=== PATIENT | female | born 1935 | race Caucasian/White ===

== ENCOUNTER 2019-08-26 16:19 | Inpatient (IN) | payer MEDICARE, BC ==
[~2019-08-26] VITALS: Ht 160 cm; Wt 65.1 kg
--- NOTE | 2019-08-26 16:30 | NUR ---
Admission Note with Justification for Admission to [facility] Patient admitted to [facility] for protective oversight for emergency stabilization of acute psychiatric crisis. Pt admitted from: Home via [facility] Mode of arrival: EMS Accompanied By: EMS Precipitating behaviors that initiated intake and admission: Patient was reportedly anxious, insomnia, verbally abusive to staff, distressed, restless, with self care deficits and reporting to her daughter that she wanted to . Description of failure of out patient attempts at stabilization in previous setting list behavior and medication trials: medication changes at [facility] and antibiotics for UTI Behaviors and assessment findings upon admission: Patient was mildly anxious, forgetful, compliant, and cooperative. When asked orientation questions, patient stated that she was at '[facility] in [place], [place]' and that the date was 'the August 2020'. Patient has bruising throughout her body, and a skin tear to her right upper chest. Skin tear photographed using KISS method. Patient had a Jung that was discontinued prior to discharge from [facility], states she has not urinated since then. She also states she has not had a BM in three days. Patient asked twice why she was here, I explained both times that she was having memory problems and we were adjusting her medications; the questions were about ten minutes apart, each time she seemed to accept the answer. Plan: Admit for protective oversight for adjustment and stabilization of medications, behaviors and mood. Intense treatment regimen including groups, medication adjustments, therapy, consistent regimen for ADL's, self care, and sleep hygiene. Daily monitoring by Inpatient staff, Psychiatry, and Medical Physician.
[2019-08-26] MEDS ORDERED: ZOLP5TAB PO (16:57)
[2019-08-26] MEDS ORDERED: METO50TA6 PO (16:57)
[2019-08-26] MEDS ORDERED: LACT1CAP19 PO (16:57)
[2019-08-26] MEDS ORDERED: LEVO88TA2 PO (16:57)
[2019-08-26] MEDS ORDERED: PANT40TA3 PO (16:57)
[2019-08-26] MEDS ORDERED: BUSP10TA PO (16:57)
[2019-08-26] MEDS ORDERED: ASPI325T11 PO (16:57)
[2019-08-26] MEDS ORDERED: SERT50TA PO (16:57)
[2019-08-26] MEDS ORDERED: SENN1TAB62 PO (16:57)
[2019-08-26] MEDS ORDERED: HYDR-2769 PO (16:57)
[2019-08-26] MEDS ORDERED: DICL100G18 TP (16:57)
[2019-08-26] MEDS ORDERED: CETI10TA74 PO (16:57)
[2019-08-26] MEDS ORDERED: MONT10TA80 PO (16:57)
[2019-08-26] MEDS ORDERED: MULT-245 PO (16:57)
[2019-08-26 17:31] VITALS: BP 175/84
[2019-08-26] MEDS ORDERED: MAG HYDROX/AL HYDROX/SIMETH 30 ML ORAL.SUSP PO PRN (17:45)
[2019-08-26] MEDS ORDERED: MAGNESIUM HYDROXIDE 2,400 MG/30 ML ORAL.SUSP. PO PRN (17:45)
[2019-08-26] MEDS ORDERED: METHYL SALICYLATE/MENTHOL TOPICAL OINTMENT 57GM TUBE. TP PRN (17:45)
[2019-08-26] MEDS: DICLOFENAC SODIUM 1% TOPICAL GEL 100GM TUBE. TP SCH (21:00)
[2019-08-26] MEDS: METOPROLOL TART IMMED RELEASE 50 MG TABLET PO SCH (22:13)
[2019-08-26] MEDS: LACTOBACILLUS RHAMNOSUS GG 1 CAPSULE. PO SCH (22:14)
[2019-08-26] MEDS: busPIRone 10 MG TABLET. PO SCH (22:14)
[2019-08-26] MEDS: MONTELUKAST 10 MG TABLET. PO SCH (22:14)
--- NOTE | 2019-08-26 22:37 | PDOC ---
Exam Note: Thomas Note: Please also refer to the separate dictated note~for this date of service dictated separately.~Patient seen individually. Discussed the patient with Nursing staff reviewed the chart.~Reviewed interim history and current functioning. Reviewed vital signs,~Labs/ Radiology~and current medications noted below. Continue current treatment with the changes noted in the dictated addendum note Assessment: Vital Signs/I&O: Vital Signs Date Time Temp Pulse Resp B/P (MAP) Pulse Ox O2 Delivery O2 Flow Rate FiO2 08/26/19 22:13 64 175/84 08/26/19 17:31 97.4 18 97 Current Medications: Meds: Current Medications Medications (Trade) Dose Ordered Sig/N[place] Route PRN Reason Start Time Stop Time Status Last Admin Dose Admin Lactobacillus Rhamnosus (Culturelle) 1 cap BID PO 08/26/19 21:00 08/26/19 22:14 Metoprolol Tartrate (Lopressor) 50 mg BID PO 08/26/19 21:00 08/26/19 22:13 Montelukast Sodium (Singulair) 10 mg HS PO 08/26/19 21:00 08/26/19 22:14 Buspirone HCl (Buspar) 10 mg BID PO 08/26/19 21:00 08/26/19 22:14 I have reviewed the current psychotropics carefully including drug interactions. Risk benefit ratio favors no change other than as noted in my dictated progress note. KERWIN RICCI MD Aug 26, 2019 22:37
[2019-08-27] MEDS: ACETAMINOPHEN 325 MG TABLET PO PRN (05:45)
[2019-08-27] MEDS: LEVOTHYROXINE 88 MCG TABLET PO SCH (05:45)
[2019-08-27 05:54] VITALS: BP 173/84
--- NOTE | 2019-08-27 06:53 | NUR ---
Nursing Note The patient was calm and cooperative this shift. The patient took her medication whole and was pleasant during interactions. The patient requested PRN Tylenol with her Synthroid this morning.
[2019-08-27] MEDS: DICLOFENAC SODIUM 1% TOPICAL GEL 100GM TUBE. TP SCH ×3 (09:00→20:21)
[2019-08-27] MEDS: ASPIRIN ENTERIC COATED 325 MG TABLET.DR. PO SCH (09:05)
[2019-08-27] MEDS: PANTOPRAZOLE 40 MG TABLET. PO SCH (09:06)
[2019-08-27] MEDS: METOPROLOL TART IMMED RELEASE 50 MG TABLET PO SCH ×2 (09:06→20:22)
[2019-08-27] MEDS: SERTRALINE 50 MG TABLET. PO SCH (09:06)
[2019-08-27] MEDS: busPIRone 10 MG TABLET. PO SCH ×2 (09:06→20:21)
[2019-08-27] MEDS: CETIRIZINE HCL 10 MG TABLET PO SCH (09:06)
[2019-08-27] MEDS: SENNOSIDES/DOCUSATE 8.6/50MG TABLET. PO SCH (09:06)
[2019-08-27] MEDS: LACTOBACILLUS RHAMNOSUS GG 1 CAPSULE. PO SCH ×2 (09:06→20:21)
[2019-08-27] MEDS: MULTIVITAMIN with MINERAL TABLET. PO SCH (09:06)
[2019-08-27 10:04] LABS: BASO % 0 % (0-3); EOS # 0.2 x10^3/uL (0.0-0.7); EOS % 2 % (0-3); HEMATOCRIT 34.7 % (36.0-47.0); HEMOGLOBIN 11.7 g/dL (12.0-15.5); LYMPH # 1.2 x10^3/uL (1.0-4.8); LYMPH % 11 % (24-48); MEAN CORPUSCULAR HEMOGLOBIN 26 pg (25-35); MEAN CORPUSCULAR HGB CONC 34 g/dL (31-37); MEAN CORPUSCULAR VOLUME 77 fL (79-100); MONO # 0.4 x10^3/uL (0.0-1.1); MONO % 4 % (0-9); NEUT # 8.5 x10^3uL (1.8-7.7); NEUT % 82 % (31-73); PLATELET COUNT 547 x10^3/uL (140-400); RED BLOOD COUNT 4.51 x10^6/uL (3.50-5.40); RED CELL DISTRIBUTION WIDTH 15.4 % (11.5-14.5); WHITE BLOOD COUNT 10.3 x10^3/uL (4.0-11.0)
[2019-08-27 10:19] LABS: ALBUMIN 3.2 g/dL (3.4-5.0); ALBUMIN/GLOBULIN RATIO 0.8 (1.0-1.7); CALCIUM 8.6 mg/dL (8.5-10.1); GFR 52.7; MAGNESIUM 1.8 mg/dL (1.8-2.4); POTASSIUM 3.5 mmol/L (3.5-5.1); TOTAL BILIRUBIN 0.5 mg/dL (0.2-1.0)
--- NOTE | 2019-08-27 12:13 | NUR ---
pt is calm, cooperative, compliant. No agitation, no aggression, no hallucinations, no delusions. She is compliant with her assessment and medications.
[2019-08-27 15:44] VITALS: BP 172/80
--- NOTE | 2019-08-27 18:54 | CONS ---
DATE OF CONSULTATION: REASON FOR CONSULTATION: Medical management. HISTORY OF PRESENT ILLNESS: The patient is an 83-year-old female patient who was admitted to [facility] on account of being anxious, confused, verbally abusive to staff, restless. Her mood is dysphoric, stressed, irritable. She has severe self-care deficits. She has insomnia. She reports that her daughter desired to when frustrated and all this in a background of major neurocognitive disorder, vascular Alzheimer with delusion, depression, behavioral disorder, anxiety disorder, unspecified; impulse control disorder. She apparently was recently admitted to [facility], specifically on 08/20/2019 with a mechanical fall. At that time, she was found to have urinary tract infection, hyponatremia and a knee injury and while there, she became extremely delirious and was seen actually by the psychiatrist and was treated for urinary tract infection. Her sodium was low also at 123 and she has mildly elevated troponin, for which she was seen also by invisible braces orthodontist and was transferred to this unit for inpatient psychiatric stabilization. PAST MEDICAL HISTORY: Significant for osteoarthritis, hypertension, hyperlipidemia, hypothyroidism, gastroesophageal reflux disease. PAST SURGICAL HISTORY: Significant for cholecystectomy and open reduction and internal fixation with nailing. ALLERGIES: She is allergic to PENICILLIN. FAMILY HISTORY: Unremarkable. SOCIAL HISTORY: She lives at home. She apparently continues to smoke, but does not drink alcohol or use recreational drugs. She uses a cane at home. MEDICATIONS: She is on following medications: She is on cetirizine 10 mg once a day, metoprolol tartrate 50 mg twice a day, aspirin 325 mg once a day, diclofenac sodium (Voltaren gel) 1 gram applied topically twice a day, hydrocodone/APAP 10/325 one tablet 3 times a day as needed, sertraline 50 mg daily, buspirone 10 mg twice a day, Ambien 5 mg at bedtime, Singulair 10 mg at bedtime, senna-S 2 tablets daily, Protonix 40 mg once a day, Lactobacillus rhamnosus 1 capsule twice a day. She is on levothyroxine sodium 88 mcg once a day and multivitamin 1 tablet once a day. PHYSICAL EXAMINATION: GENERAL: When I examined her, she was sitting comfortably in her wheelchair, in no apparent respiratory distress. She was very agitated, restless and uncooperative, complained mostly of pain in her both knee joints. When I examined her, she was pale, no jaundice, cyanosis or thyromegaly. No jugular venous distention or limb edema. VITAL SIGNS: Her heart rate was 64, blood pressure 172/80, temperature was 98.1, respiratory rate was 18 and oxygen saturation was 97%. HEAD, EYES, EARS, NOSE AND THROAT: Showed normocephalic, atraumatic. NECK: Supple. HEART: Showed normal first and second heart sounds. No gallop or murmur. CHEST: Clear to auscultation. No crepitation or rhonchi. ABDOMEN: Distended, soft, nontender. NEUROLOGIC: She is awake, alert. All her cranial nerves are intact. EXTREMITIES: She moves all extremities without difficulty. She is apparently mostly wheelchair bound. She managed to wheel herself. LABORATORY DATA: Showed a white cell count 15,300, hemoglobin 11.7, hematocrit 34.7, MCV 77 and platelet count of 547,000 with normal manual differential. Her chemistry showed sodium slightly elevated at 131, but definitely much better than her level of Sodium when she was admitted to [facility], at that time it was 123 mEq per liter. Her potassium was 3.5, chloride 95, bicarbonate 25, anion gap of 11, BUN 28, creatinine 1, estimated GFR was 52 mL per minute. Her glucose was 145, calcium was 8.6, magnesium was 1.8. Total bilirubin, AST, ALT, alkaline phosphatase were normal. Total protein 7, albumin 3.2. ASSESSMENT AND PLAN: In summary, this is an 83-year-old female patient who was admitted as a transfer from [facility] where she was admitted with mechanical fall and at that time, she was found to have urinary tract infection, hyponatremia and knee injury. Her serum sodium at that time was only 123 mEq. She was treated with IV antibiotic for urinary tract infection; however, the patient continued to be extremely anxious, confused, verbally abusive to staff, restless. Her mood is dysphoric, distress, irritable and she reports the daughter desire to when frustrated and all this in a background of major neurocognitive disorder. Medically, she has multiple medical problems including chronic hyponatremia, generalized osteoarthritis, gastroesophageal reflux disease, hypertension, hyperlipidemia and hypothyroidism; however, overall, the patient seems to be stable. Her blood pressure continued to be somewhat elevated. She continued to have hyponatremia, although it is much, much better than when she was admitted to [facility]. She has microcytic hypochromic anemia with reactive thrombocytosis. Other lab work still pending at the time of this dictation. PLAN: My plan is to continue with all her current medication. I will follow all her labs that are still pending and make any necessary adjustment. Thank you very much for allowing me to participate in the care of this patient. JESSICA JOHNSON MD DR: ALEK/silvestre JOB#: [id number] / [id number]
[2019-08-27] MEDS: MONTELUKAST 10 MG TABLET. PO SCH (20:22)
--- NOTE | 2019-08-27 21:47 | NUR ---
Pt sitting up in w/c in the day room at shift change. Pt calm, pleasant, and cooperative but forgetful. Pt compliant with assessment and medications administered whole.
--- NOTE | 2019-08-27 22:15 | PDOC ---
Exam Note: Thomas Note: Please also refer to the separate dictated note~for this date of service dictated separately.~Patient seen individually. Discussed the patient with Nursing staff reviewed the chart.~Reviewed interim history and current functioning. Reviewed vital signs,~Labs/ Radiology~and current medications noted below. Continue current treatment with the changes noted in the dictated addendum note Assessment: Vital Signs/I&O: Vital Signs Date Time Temp Pulse Resp B/P (MAP) Pulse Ox O2 Delivery O2 Flow Rate FiO2 08/27/19 20:22 64 172/80 08/27/19 15:44 98.1 18 97 08/27/19 05:54 Room Air I & O 08/26/19 08/26/19 08/27/19 15:00 23:00 07:00 Intake Total 360 ml Balance 360 ml Labs: Laboratory Tests Test 08/27/19 09:40 White Blood Count 10.3 x10^3/uL (4.0-11.0) Red Blood Count 4.51 x10^6/uL (3.50-5.40) Hemoglobin 11.7 g/dL (12.0-15.5) L Hematocrit 34.7 % (36.0-47.0) L Mean Corpuscular Volume 77 fL (79-100) L Mean Corpuscular Hemoglobin 26 pg (25-35) Mean Corpuscular Hemoglobin Concent 34 g/dL (31-37) Red Cell Distribution Width 15.4 % (11.5-14.5) H Platelet Count 547 x10^3/uL (140-400) H Neutrophils (%) (Auto) 82 % (31-73) H Lymphocytes (%) (Auto) 11 % (24-48) L Monocytes (%) (Auto) 4 % (0-9) Eosinophils (%) (Auto) 2 % (0-3) Basophils (%) (Auto) 0 % (0-3) Neutrophils # (Auto) 8.5 x10^3uL (1.8-7.7) H Lymphocytes # (Auto) 1.2 x10^3/uL (1.0-4.8) Monocytes # (Auto) 0.4 x10^3/uL (0.0-1.1) Eosinophils # (Auto) 0.2 x10^3/uL (0.0-0.7) Basophils # (Auto) 0.0 x10^3/uL (0.0-0.2) Sodium Level 131 mmol/L (136-145) L Potassium Level 3.5 mmol/L (3.5-5.1) Chloride Level 95 mmol/L (98-107) L Carbon Dioxide Level 25 mmol/L (21-32) Anion Gap 11 (6-14) Blood Urea Nitrogen 28 mg/dL (7-20) H Creatinine 1.0 mg/dL (0.6-1.0) Estimated GFR (Cockcroft-Gault) 52.7 BUN/Creatinine Ratio 28 (6-20) H Glucose Level 145 mg/dL (70-99) H Calcium Level 8.6 mg/dL (8.5-10.1) Magnesium Level 1.8 mg/dL (1.8-2.4) Total Bilirubin 0.5 mg/dL (0.2-1.0) Aspartate Amino Transferase (AST) 37 U/L (15-37) Alanine Aminotransferase (ALT) 44 U/L (14-59) Alkaline Phosphatase 82 U/L (46-116) Total Protein 7.0 g/dL (6.4-8.2) Albumin 3.2 g/dL (3.4-5.0) L Albumin/Globulin Ratio 0.8 (1.0-1.7) L Current Medications: Meds: Current Medications Medications (Trade) Dose Ordered Sig/N[place] Route PRN Reason Start Time Stop Time Status Last Admin Dose Admin Aspirin (Aspirin Enteric Coated) 325 mg DAILY PO 08/27/19 09:00 08/27/19 09:05 Cetirizine HCl (ZyrTEC) 10 mg DAILY PO 08/27/19 09:00 08/27/19 09:06 Levothyroxine Sodium (Synthroid) 88 mcg DAILY06 PO 08/27/19 06:00 08/27/19 05:45 Pantoprazole Sodium (Protonix) 40 mg DAILY PO 08/27/19 09:00 08/27/19 09:06 Senna/Docusate Sodium (Senna Plus) 2 tab DAILY PO 08/27/19 09:00 08/27/19 09:06 Multivitamins/ Calcium (Thera-M Plus) 1 tab DAILY PO 08/27/19 09:00 08/27/19 09:06 Sertraline HCl (Zoloft) 50 mg DAILY PO 08/27/19 09:00 08/27/19 09:06 I have reviewed the current psychotropics carefully including drug interactions. Risk benefit ratio favors no change other than as noted in my dictated progress note. Diagnosis: Problems: (1) Major neurocognitive disorder (2) Dementia in Alzheimer's disease with delusions (3) Dementia in Alzheimer's disease with depression (4) Dementia of the Alzheimer's type with early onset with behavioral disturbance (5) Dementia, vascular, with delusions (6) Dementia, vascular, with depression (7) Anxiety disorder, unspecified (8) Impulse control disorder, unspecified KERWIN RICCI MD Aug 27, 2019 22:15
--- NOTE | 2019-08-28 00:39 | HP ---
ADMIT DATE: 08/26/2019 PSYCHIATRIC ADMISSION HISTORY AND EVALUATION This late entry date of service 08/25 covers elements not covered in my initial note. IDENTIFYING DATA: The patient is an 83-year-old female referred to us from [facility] where she presented from home with acute mental status changes, being verbally aggressive and within the context of her UTI. She also had a raised troponin. She was medically stabilized and continued to be extremely labile, anxious, paranoid, increasingly confused. She had failed psychiatric interventions at [place] [facility] and had a psychiatric consult with Dr. Alonzo with a recommendation for inpatient psychiatric stabilization and then referred to us. CHIEF COMPLAINT: "I came today." The patient was aware she was admitted on 08/25, but beyond that she did not know why she was sent here, felt she was sent here for physical therapy. HISTORY OF PRESENT ILLNESS: The patient has a history of early dementia, Alzheimer's vascular type. She reportedly been living at home with her family; had further worsening of her mental status changes; was verbally aggressive, disruptive and taken to [facility]. She was treated on IV Rocephin for her UTI. While living at home, she was difficult to manage and had a fall at home, resulting in bruising of her left shoulder. No clear history of bipolar disorder, suicidal or homicidal ideation. She has had some sleep and appetite changes. PAST PSYCHIATRIC HISTORY: As above. MEDICAL HISTORY: Hyponatremia, arthritis, GERD, hypertension, hyperlipidemia, hypothyroidism, hip fracture, status post open reduction and internal fixation. FAMILY HISTORY: Noncontributory. SOCIAL HISTORY: No history of alcohol, drug abuse, physical, sexual or elder abuse. She is not known to be a perpetrator. CURRENT PSYCHOTROPICS: BuSpar 10 mg b.i.d., Zoloft 50 mg a day, Ambien 5 mg at bedtime p.r.n. insomnia. REVIEW OF SYSTEMS: Ambulation impaired, in wheelchair. No CV, , pulmonary, eye, ENT system symptoms on review. MENTAL STATUS EXAMINATION: The patient was seen individually evening of 08/25. She was oriented to herself and place, unaware of the year or the month. She remains anxious. Mood is somewhat dysphoric. Affect is mood congruent. Attention span is short. Language function intact. Intellect average. Insight limited. Judgment intact to standard questioning. LABORATORY DATA: Reviewed. IMPRESSION: Major neurocognitive disorder, probably early Alzheimer, vascular with delusion, depression; anxiety disorder, unspecified; impulse control disorder, unspecified. Rest as above. PLAN: Admit to Geropsychiatry Unit at [facility]. I will see the patient daily individually from a psychiatric standpoint. Medical followup per Dr. Morales/Dr. Sanches. Treat the UTI. Continue current psychotropics, observe baseline, then make further adjustments as clinically indicated. Estimated length of stay 10-12 days. DISPOSITION PLANS: Possibly back home post-psychiatrically stable, all may need longer term placement, will determine post-stabilization. MAN Pamella RICCI MD DR: JESSE/silvestre JOB#: [id number] / [id number]
[2019-08-28] MEDS: LEVOTHYROXINE 88 MCG TABLET PO SCH (05:12)
[2019-08-28 06:28] VITALS: BP 144/79
--- NOTE | 2019-08-28 08:00 | PDOC ---
Exam Note: Thomas Note: This note is a late entry for 08/27/2019 covers elements not covered in my initial note. Subjective: The patient was seen individually in the evening of 08/27/2019. Per Esperanza KRUEGER, she slept 5-1/2 hours previous night. She did well previous night. She remains confused. Review of Systems: Ambulation impaired in wheelchair. No CV, , pulmonary, eye, ENT system symptoms on review. She does complain of feeling cold, had extra covers on her. Mental Status Exam: She is oriented to herself and place. She felt the month was January, year was 2000. Speech has some latency, coherent. Abstraction fair. Computation impaired. Language function intact. Attention span is short. Mood and affect somewhat withdrawn. Laboratory Data: Reviewed. Sodium 131. Impression: Major neurocognitive disorder Alzheimer, vascular with delusion, depression, behavioral disturbance. Anxiety disorder unspecified. Impulse control disorder unspecified. Major depressive disorder. Status post UTI. Rest unchanged. Plan: Continue current psychotropics from initial note. Make further adjustments as clinically indicated. Assessment: Vital Signs/I&O: Vital Signs Date Time Temp Pulse Resp B/P (MAP) Pulse Ox O2 Delivery O2 Flow Rate FiO2 08/28/19 06:28 98.6 64 16 144/79 (100) 96 Room Air I & O 08/27/19 08/27/19 08/28/19 15:00 23:00 07:00 Intake Total 720 ml 320 ml Balance 720 ml 320 ml Labs: Laboratory Tests Test 08/27/19 09:40 White Blood Count 10.3 x10^3/uL (4.0-11.0) Red Blood Count 4.51 x10^6/uL (3.50-5.40) Hemoglobin 11.7 g/dL (12.0-15.5) L Hematocrit 34.7 % (36.0-47.0) L Mean Corpuscular Volume 77 fL (79-100) L Mean Corpuscular Hemoglobin 26 pg (25-35) Mean Corpuscular Hemoglobin Concent 34 g/dL (31-37) Red Cell Distribution Width 15.4 % (11.5-14.5) H Platelet Count 547 x10^3/uL (140-400) H Neutrophils (%) (Auto) 82 % (31-73) H Lymphocytes (%) (Auto) 11 % (24-48) L Monocytes (%) (Auto) 4 % (0-9) Eosinophils (%) (Auto) 2 % (0-3) Basophils (%) (Auto) 0 % (0-3) Neutrophils # (Auto) 8.5 x10^3uL (1.8-7.7) H Lymphocytes # (Auto) 1.2 x10^3/uL (1.0-4.8) Monocytes # (Auto) 0.4 x10^3/uL (0.0-1.1) Eosinophils # (Auto) 0.2 x10^3/uL (0.0-0.7) Basophils # (Auto) 0.0 x10^3/uL (0.0-0.2) Sodium Level 131 mmol/L (136-145) L Potassium Level 3.5 mmol/L (3.5-5.1) Chloride Level 95 mmol/L (98-107) L Carbon Dioxide Level 25 mmol/L (21-32) Anion Gap 11 (6-14) Blood Urea Nitrogen 28 mg/dL (7-20) H Creatinine 1.0 mg/dL (0.6-1.0) Estimated GFR (Cockcroft-Gault) 52.7 BUN/Creatinine Ratio 28 (6-20) H Glucose Level 145 mg/dL (70-99) H Calcium Level 8.6 mg/dL (8.5-10.1) Magnesium Level 1.8 mg/dL (1.8-2.4) Total Bilirubin 0.5 mg/dL (0.2-1.0) Aspartate Amino Transferase (AST) 37 U/L (15-37) Alanine Aminotransferase (ALT) 44 U/L (14-59) Alkaline Phosphatase 82 U/L (46-116) Total Protein 7.0 g/dL (6.4-8.2) Albumin 3.2 g/dL (3.4-5.0) L Albumin/Globulin Ratio 0.8 (1.0-1.7) L Current Medications: Meds: Current Medications Medications (Trade) Dose Ordered Sig/N[place] Route PRN Reason Start Time Stop Time Status Last Admin Dose Admin Aspirin (Aspirin Enteric Coated) 325 mg DAILY PO 08/27/19 09:00 08/27/19 09:05 Cetirizine HCl (ZyrTEC) 10 mg DAILY PO 08/27/19 09:00 08/27/19 09:06 Pantoprazole Sodium (Protonix) 40 mg DAILY PO 08/27/19 09:00 08/27/19 09:06 Senna/Docusate Sodium (Senna Plus) 2 tab DAILY PO 08/27/19 09:00 08/27/19 09:06 Multivitamins/ Calcium (Thera-M Plus) 1 tab DAILY PO 08/27/19 09:00 08/27/19 09:06 Sertraline HCl (Zoloft) 50 mg DAILY PO 08/27/19 09:00 08/27/19 09:06 I have reviewed the current psychotropics carefully including drug interactions. Risk benefit ratio favors no change other than as noted in my dictated progress note. Diagnosis: Problems: (1) Impulse control disorder, unspecified (2) Anxiety disorder, unspecified (3) Dementia, vascular, with depression (4) Dementia, vascular, with delusions (5) Dementia in Alzheimer's disease with depression (6) Dementia in Alzheimer's disease with delusions (7) Dementia of the Alzheimer's type with early onset with behavioral disturbance (8) Major neurocognitive disorder KERWIN RICCI MD Aug 28, 2019 08:00
[2019-08-28] MEDS: ASPIRIN ENTERIC COATED 325 MG TABLET.DR. PO SCH (08:50)
[2019-08-28] MEDS: MULTIVITAMIN with MINERAL TABLET. PO SCH (08:50)
[2019-08-28] MEDS: SENNOSIDES/DOCUSATE 8.6/50MG TABLET. PO SCH (08:50)
[2019-08-28] MEDS: LACTOBACILLUS RHAMNOSUS GG 1 CAPSULE. PO SCH ×2 (08:50→20:59)
[2019-08-28] MEDS: CETIRIZINE HCL 10 MG TABLET PO SCH (08:50)
[2019-08-28] MEDS: SERTRALINE 50 MG TABLET. PO SCH (08:50)
[2019-08-28] MEDS: DICLOFENAC SODIUM 1% TOPICAL GEL 100GM TUBE. TP SCH ×2 (08:50→21:34)
[2019-08-28] MEDS: PANTOPRAZOLE 40 MG TABLET. PO SCH (08:51)
[2019-08-28] MEDS: busPIRone 10 MG TABLET. PO SCH ×2 (08:51→20:59)
[2019-08-28] MEDS: METOPROLOL TART IMMED RELEASE 50 MG TABLET PO SCH ×2 (08:51→20:59)
--- NOTE | 2019-08-28 16:09 | NUR ---
PSYCHOSOCIAL ASSESSMENT ADMISSION DATE: 08/26/19 CONTACT INFORMATION: DPOA/Guardian Contact Name: Hilary Ortiz-daughter Contact Phone #: [phone] ETHNIC ORIGIN: REASONS FOR ADMISSION: Aggressive Anxiety/Panic Confusion/Disoriented Sig. Change Sleep Suicidal ideation ADDITIONAL ADMISSION COMMENTS: Per intake, anxious, insomnia, confused, verbally abusive to staff, restless, dysphoric mood, distressed, irritable, self care deficits (covered in feces), reports to daughter desire to when frustrated. REASON FOR ADMISSION IN PATIENT/FAMILY'S OWN WORDS: Per Jennifer, "I fell at home and couldn't get up and they tell me my mind was acting up too." PATIENT/FAMILY EXPECTATIONS FOR ADMISSION: Per Jennifer, "That I can get out and to walk." LIVING SITUATION: Patient lives with: Child/children Other living arrangements: Jennifer's home, son lives with her Contact Name: Luciano Velarde Contact [address]: [address] [place] [id number] Contact Phone #: [phone] FAMILY RELATIONS: Marital Status: # of Marriages: 1 # of Children: 2 [facility] Family Support: Concerned Cooperative Involved in DC Planning Additional Comments r/t Family: Jennifer met her , Alexey Velarde, at the [employer]. They and had two children, Teodora ([facility]) and Luciano ([facility]). Alexey worked as a ironworker apprentice. Alexey approximately 15 years ago. Jennifer reported they had a good marriage. Jennifer has three grandchildren. SIGNIFICANT PSYCHIATRIC/MEDICAL HISTORY: Psychiatric/Treatment History: Jennifer denies previous mental health treatment. Pertinent Family History: POA reports that Jennifer's mother had a "breakdown" when Jennifer was a young girl. HISTORICAL DATA: Childhood Environment: [place] Supportive Childhood Environment Additional Comments: Jennifer was born in [facility] to Enrico and Fina Buchanan. Her father when she was a young age. Her mother and her moved in with her grandparent's. Her mother later re- and and Jennifer had a step father, Devante. Jennifer is an only child. Trauma History: None Jennifer denies being abused as a child or an adult. Drug Abuse History last 12 months: None Comment: Jennifer is a former smoker. She does not drink alcohol or use drugs. PERSONAL HISTORY: Vocational history: Jennifer worked for [employer] for 25 years. 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 service: None. Spouse served in [employer] Jewish background: Jennifer was raised in the [place]. She is a member of [employer]. Jennifer reports her kendall as important. Sexual orientation: Heterosexual Educational Level: Jennifer graduated from [employer]. Past/Present Interests/Hobbies: Jnenifer has enjoyed ballroom dancing, sewing, reading, cooking, and baking. Financial support/resources: Correction/Pension Social Security VA Benefits Monthly income: adequate Person handling finances: Teodora Ortiz- daughter/POA Do you have a history of legal problems: None reported Cultural considerations: None reported SOCIAL RELATIONSHIPS-CURRENT/PAST: Psychiatrist: None PCP: Dr. GuallpaKiesig-[phone] Counselor/Therapist: None Veterans' Administration: Gets VA benefits from spouse's service Support Group: None Sports Equipment Repairer/Flagman: None Other relationships: Supportive son and daughter STRENGTHS & WEAKNESSES: Patient's strengths: Good family support Strong relationships Ambulatory Patient's weaknesses: Health problems Verbally Aggressive Other patient weaknesses: Declining cognition PRELIMINARY PLAN OF TREATMENT: Preliminary plan: Dec. Anxiety/Panic Medication Stabilization Prevent Deterioration Dec. Outbursts Dec. Aggression Other preliminary treatment comments: Jennifer will be encouraged to attend meals and group programming while on the unit. DISCHARGE PLANNING: Discharge planning/disposition: Acute Rehab Other Additional discharge needs identified: Jennifer's family intends for her to move to a senior apartment and her son will live with her there. They would like her to go for post acute rehab once stable on [facility] and then d/c to an apartment from there. ADDITIONAL INFORMATION: Other Pertinent Data: Met with Jennifer on this date to support and complete psychosocial assessment. Jennifer preferred to visit in the day room. She was alert and able to express her needs and desires. She had some difficulty recalling recent and some remote events. She was able to recognize that she was having trouble recalling some information. Jennifer is supported by her son and daughter who are involved with her care and Jennifer expressed that she trusts their judgement related to her cares. Call placed to preet Araiza, who confirmed and shared additional psychosocial information. Teodora will be involved in team meeting via phone on 09/04/19.
--- NOTE | 2019-08-28 16:21 | TX PLAN ---
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 Change Sleep, Anxiety/Panic, Suicidal ideation, Confusion/Disoriented Problem in Patient's Words: Per Jennifer, "I fell at home and couldn't get up and they tell me my mind was acting up too." Additional Admission Comments: Per intake, anxious, insomnia, confused, verbally abusive to staff, restless, dysphoric mood, distressed, irritable, self care defecits (covered in feces), eports to daughter desire to when frustrated. Problems Active Problems: Forgetful, confused Recent fall with decline insomnia depression looking for new living arrangements Inactive Problems: Medication complaint, adequate intake of meals Pt Strengths/Limitations Ability for Amelia: Fair Cognitive Functioning/Ability: Fair Communication Skills/Ability: Fair Financial Resources: Fair Insight/Judgement: Fair Intellectual Ability: Fair Physical Health: Fair Social Skills: Fair Stability in Family: Good Verbal Skills: Fair Discharge Criteria Discharge Criteria: Adequate arrangements @DC, Adequate self-care, Improved mood/thought Preliminary Discharge Plan Preliminary DC Plan: Acute Rehab, Other Other Arrangements: Senior apartment, son will reside with her Special Precautions Fall Risk: High Initial D/C Plan Post acute rehab then move to a senior apartment Identified Discharge Needs: Jennifer's family intends for her to move to a senior apartment and her son will live with her there. They would like her to go for post acute rehab once stable on [facility] and then d/c to an apartment from there. Currently Utilized Resources Currently Utilized Resources/P: PCP Son and jadenmau support with managing household respsibilities and finances Referrals Community Resources: Skilled rehab referral Identified Problems/Hx/Goals Objectives/Short-Term Goals Short Term Goals: Dec. Aggression, Dec. Anxiety/Panic, Dec. Outbursts, Medication Stabilization, Prevent Deterioration Short Term Goals in Patient's: Per Jennifer, "That I can get out and to walk." Interventions/Frequency Staff Interventions/Frequency&: Nursing to provide routine checks, medication administration, and adl support. Psychiatry 3-5 times week. SW visits twice week. PT/OT as ordered. Recerational groups as Jennifer chooses. History Vocational History: Jennifer worked for [employer] for 25 years. 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 Social: Ballroom dancing, sewing, reading, cooking, and baking. Education: Jennifer graduated from [employer]. Community Follow-up PCP Community Provider/Family Inpu: Teodora, daughter/POA, was updated by LUBNA this date. She will be involved in team meeting on 09/04/19 via phone. Treatment Plan Explained Patient/Senior Structural Engineer had this treatment plan explained to him/her as indicated by the signature below and has been given the opportunity to ask questions and make suggestions: Date: Patient/Senior Structural Engineer Signature: WALLACE RECINOS Aug 28, 2019 16:21
[2019-08-28 16:29] VITALS: BP 153/80
--- NOTE | 2019-08-28 16:39 | RAD ---
Single AP view of the chest. Comparison: None. Indication: Recurrent cough Findings: The aorta is calcified. The heart is enlarged. There is no pneumothorax or effusion. No air space or interstitial disease. Impression: 1. No acute cardiopulmonary process. Electronically signed by: Quinton Tripp MD (08/28/2019 4:36 PM) [id number]
[2019-08-28 18:06] LABS: THYROXINE 8.4 ug/dL (4.5-12.0)
[2019-08-28] MEDS: MONTELUKAST 10 MG TABLET. PO SCH (20:59)
[2019-08-28] MEDS: ZOLPIDEM 5 MG TABLET. PO PRN (21:34)
--- NOTE | 2019-08-28 22:14 | PDOC ---
Exam Note: Thomas Note: Please also refer to the separate dictated note~for this date of service dictated separately.~Patient seen individually. Discussed the patient with Nursing staff reviewed the chart.~Reviewed interim history and current functioning. Reviewed vital signs,~Labs/ Radiology~and current medications noted below. Continue current treatment with the changes noted in the dictated addendum note Assessment: Vital Signs/I&O: Vital Signs Date Time Temp Pulse Resp B/P (MAP) Pulse Ox O2 Delivery O2 Flow Rate FiO2 08/28/19 20:59 60 153/80 08/28/19 16:29 98.0 20 90 08/28/19 06:28 Room Air I & O 08/27/19 08/27/19 08/28/19 15:00 23:00 07:00 Intake Total 720 ml 320 ml Balance 720 ml 320 ml Current Medications: I have reviewed the current psychotropics carefully including drug interactions. Risk benefit ratio favors no change other than as noted in my dictated progress note. Diagnosis: Problems: (1) Impulse control disorder, unspecified (2) Anxiety disorder, unspecified (3) Dementia, vascular, with depression (4) Dementia, vascular, with delusions (5) Dementia in Alzheimer's disease with depression (6) Dementia in Alzheimer's disease with delusions (7) Dementia of the Alzheimer's type with early onset with behavioral disturbance (8) Major neurocognitive disorder KERWIN RICCI MD Aug 28, 2019 22:14
--- NOTE | 2019-08-28 23:15 | NUR ---
Patient in day room at shift change. Compliant with medications and assessment but complaining about having to take a shower, having to wheel herself in her wheelchair to the shower saying "it's too far and I can't do it." I explained to her that we are trying to help her get stronger and that doing that and taking a shower would help her to sleep better. Patient stated after her shower that she felt better and "they were really quick." Patient given PRN ambien at but patient complaining that she won't be able to sleep because the air conditioner is too loud. Patient requested ear plugs and this nurse used gauze pads which she said were helpful. Will continue to monitor.
[2019-08-29 03:07] LABS: HEMOGLOBIN A1C 5.7 % (4.8-5.6)
[2019-08-29] MEDS: LEVOTHYROXINE 88 MCG TABLET PO SCH (05:30)
[2019-08-29 06:12] VITALS: BP 120/57
[2019-08-29] MEDS: SERTRALINE 50 MG TABLET. PO SCH (07:52)
[2019-08-29] MEDS: LACTOBACILLUS RHAMNOSUS GG 1 CAPSULE. PO SCH ×2 (07:52→19:48)
[2019-08-29] MEDS: CETIRIZINE HCL 10 MG TABLET PO SCH (07:52)
[2019-08-29] MEDS: busPIRone 10 MG TABLET. PO SCH ×2 (07:53→19:48)
[2019-08-29] MEDS: PANTOPRAZOLE 40 MG TABLET. PO SCH (07:53)
[2019-08-29] MEDS: METOPROLOL TART IMMED RELEASE 50 MG TABLET PO SCH ×2 (07:53→19:48)
[2019-08-29] MEDS: MULTIVITAMIN with MINERAL TABLET. PO SCH (07:54)
[2019-08-29] MEDS: SENNOSIDES/DOCUSATE 8.6/50MG TABLET. PO SCH (07:54)
[2019-08-29] MEDS: ASPIRIN ENTERIC COATED 325 MG TABLET.DR. PO SCH (07:54)
[2019-08-29] MEDS: DICLOFENAC SODIUM 1% TOPICAL GEL 100GM TUBE. TP SCH ×2 (09:00→19:47)
--- NOTE | 2019-08-29 15:30 | NUR ---
ACTIVITY THERAPY ASSESSMENT Completed based on observation, interview and notes. Pt. was in the day room agreeable to speak with GENERAL SURGERY PHYSICIAN ASSISTANT and answer assessment questions. Pt. talked about leg problems at home, falling, and having trouble walking. She really wanted to walk again. She danced all her years with her and was very discouraged with her inability to even walk at this time. Pt. She lived at home with her son and was going to be selling her house and moving into an apartment. At home, she would wake up around 0700, make cereal, watch TV, sit in her chair. Her daughter brought over a few word searches for Pt. reports being bored here at the hospital but also at home. No interest in coloring, hand has been stiff lately, and she's had some knee pain. GENERAL SURGERY PHYSICIAN ASSISTANT and patient discussed chair exercises and she encouraged her to wheel and walk herself in her wheelchair once a day around the unit. Notes indicated Pt. also enjoys sewing, reading, and cooking/ baking. Initial goal aimed to increase engagement and physical strength/endurance: Pt. will participate in at least one Activity Therapy group (daily exercise) per day.
[2019-08-29] MEDS: HYDROcodone/APAP 10/325 1 TAB TABLET PO PRN (15:41)
--- NOTE | 2019-08-29 16:00 | NUR ---
Jennifer used the unit I pad this afternoon to have a face time time call with her daughter and grandson. Jennifer expressed appreciation to staff for the ability to do this. Jennifer has spent most of her day in the day room and was observed to be actively participating in the recreational therapy groups. She also participated in PT/OT today. With permission from preet Araiza/ELIF, call placed to Amaya at [facility] to request CARE assessment be completed as family is interested in Jennifer going to [facility] for alf/rehab once stable. Faxed Amaya at [facility] face sheet and DPOA document. Amaya will reach out to [facility] for consent.
[2019-08-29 16:18] VITALS: BP 152/76
--- NOTE | 2019-08-29 18:30 | NUR ---
Patient has been forgetful, restless, compliant, and cooperative throughout this shift. She attended and participated in groups. Patient was cooperative with therapy. will continue to monitor.
[2019-08-29] MEDS: MONTELUKAST 10 MG TABLET. PO SCH (19:48)
[2019-08-29] MEDS: ZOLPIDEM 5 MG TABLET. PO PRN (20:35)
--- NOTE | 2019-08-29 22:15 | PDOC ---
Exam Note: Thomas Note: Please also refer to the separate dictated note~for this date of service dictated separately.~Patient seen individually. Discussed the patient with Nursing staff reviewed the chart.~Reviewed interim history and current functioning. Reviewed vital signs,~Labs/ Radiology~and current medications noted below. Continue current treatment with the changes noted in the dictated addendum note Assessment: Vital Signs/I&O: Vital Signs Date Time Temp Pulse Resp B/P (MAP) Pulse Ox O2 Delivery O2 Flow Rate FiO2 08/29/19 19:48 65 152/76 08/29/19 19:28 100 08/29/19 16:18 98.8 16 Room Air I & O 08/28/19 08/28/19 08/29/19 15:00 23:00 07:00 Intake Total 540 ml 240 ml 120 ml Balance 540 ml 240 ml 120 ml Current Medications: I have reviewed the current psychotropics carefully including drug interactions. Risk benefit ratio favors no change other than as noted in my dictated progress note. Diagnosis: Problems: (1) Impulse control disorder, unspecified (2) Anxiety disorder, unspecified (3) Dementia, vascular, with depression (4) Dementia, vascular, with delusions (5) Dementia in Alzheimer's disease with depression (6) Dementia in Alzheimer's disease with delusions (7) Dementia of the Alzheimer's type with early onset with behavioral disturbance (8) Major neurocognitive disorder KERWIN RICCI MD Aug 29, 2019 22:14
--- NOTE | 2019-08-29 22:55 | NUR ---
Pt located in dayroom this evening sitting calmly. Compliant with HS medications. Pleasantly confused. PRN Ambien administered with HS medications.
[2019-08-30 05:09] VITALS: BP 132/71
[2019-08-30] MEDS: LEVOTHYROXINE 88 MCG TABLET PO SCH (05:21)
[2019-08-30] MEDS: HYDROcodone/APAP 10/325 1 TAB TABLET PO PRN (05:34)
--- NOTE | 2019-08-30 07:54 | PDOC ---
Exam Note: Thomas Note: This note is a late entry for 08/28/2019 covers elements not covered in my initial note. Subjective: The patient was seen individually in the morning of 08/28/2019 with treatment team meeting with RN, Jessie (social service staff), Ashley Activity Therapy staff, and CYNTHIA Do. Per Sukh KRUEGER, she slept 5-1/2 hours previous night. Appetite is 75%. She has been somewhat forgetful, minimizes this. She had dry cough, oriented x2, anxious, believes she came here for doing physical therapy and nothing else, minimizes word prompted her admission behaviorally. She did attend groups. She is somewhat loud at times. Review of Systems: Ambulation impaired in wheelchair. No CV, , pulmonary, eye system symptoms on review. Reliability poor. Mental Status Exam: The patient is oriented x2 as I met with her individually. Insight and judgment, recent and remote memory, attention and concentration, fund of knowledge is poor consistent with her diagnoses. Laboratory Data: Reviewed. Impression: Major neurocognitive disorder Alzheimer, vascular with delusion, depression, behavioral disturbance. Anxiety disorder unspecified. Impulse control disorder unspecified. Major depressive disorder. Plan: Continue current psychotropics from initial note. BuSpar 10 mg b.i.d., Zoloft 50 mg a day, Ambien 5 mg h.s. p.r.n. We may need to increase Zoloft post-baseline assessment. Assessment: Vital Signs/I&O: Vital Signs Date Time Temp Pulse Resp B/P (MAP) Pulse Ox O2 Delivery O2 Flow Rate FiO2 08/30/19 05:34 94 08/30/19 05:09 98.0 80 18 132/71 (91) 08/29/19 16:18 Room Air I & O 08/29/19 08/29/19 08/30/19 15:00 23:00 07:00 Intake Total 840 ml 600 ml Balance 840 ml 600 ml Current Medications: I have reviewed the current psychotropics carefully including drug interactions. Risk benefit ratio favors no change other than as noted in my dictated progress note. Diagnosis: Problems: (1) Impulse control disorder, unspecified (2) Anxiety disorder, unspecified (3) Dementia, vascular, with depression (4) Dementia, vascular, with delusions (5) Dementia in Alzheimer's disease with depression (6) Dementia in Alzheimer's disease with delusions (7) Dementia of the Alzheimer's type with early onset with behavioral disturbance (8) Major neurocognitive disorder KERWIN RICCI MD Aug 30, 2019 07:54
[2019-08-30] MEDS: SENNOSIDES/DOCUSATE 8.6/50MG TABLET. PO SCH (08:20)
[2019-08-30] MEDS: CETIRIZINE HCL 10 MG TABLET PO SCH (08:21)
[2019-08-30] MEDS: DULoxetine HCL 30 MG CAPSULE.DR PO SCH (08:21)
[2019-08-30] MEDS: ASPIRIN ENTERIC COATED 325 MG TABLET.DR. PO SCH (08:21)
[2019-08-30] MEDS: METOPROLOL TART IMMED RELEASE 50 MG TABLET PO SCH ×2 (08:21→20:46)
[2019-08-30] MEDS: LACTOBACILLUS RHAMNOSUS GG 1 CAPSULE. PO SCH ×2 (08:21→20:46)
[2019-08-30] MEDS: MULTIVITAMIN with MINERAL TABLET. PO SCH (08:21)
[2019-08-30] MEDS: busPIRone 10 MG TABLET. PO SCH (08:21)
[2019-08-30] MEDS: PANTOPRAZOLE 40 MG TABLET. PO SCH (08:21)
--- NOTE | 2019-08-30 08:32 | PDOC ---
Exam Note: Thomas Note: This note is a late entry for 08/29/2019 covers elements not covered in my initial note. Subjective: The patient was seen individually in the evening of 08/29/2019. Per Sukh KRUEGER, she slept 4 hours previous night. She gets agitated around, being assistive with showers, pushing herself in the wheelchair around the unit. She was complaining of pain in the evening. Received Lortab. She is compliant with therapy. She did have Zoom meeting with her daughter. Review of Systems: Ambulation impaired in wheelchair. No CV, , pulmonary, eye system symptoms on review. Reliability poor. Mental Status Exam: The patient is oriented reasonably. Insight and judgment, recent and remote memory, attention and concentration, fund of knowledge is poor consistent with her diagnoses. Laboratory Data: Reviewed. Impression: Major neurocognitive disorder Alzheimer, vascular with delusion, depression, behavioral disturbance. Anxiety disorder unspecified. Impulse control disorder unspecified. Major depressive disorder. Plan: Continue current psychotropics from initial note. We will go ahead and change patients Zoloft 50 mg a day to Cymbalta 30 mg a day. This should help some of her pain as well. Maintain BuSpar 10 mg b.i.d., Ambien 5 mg h.s. p.r.n. insomnia. Assessment: Vital Signs/I&O: Vital Signs Date Time Temp Pulse Resp B/P (MAP) Pulse Ox O2 Delivery O2 Flow Rate FiO2 08/30/19 08:22 16 94 Room Air 08/30/19 08:21 80 132/71 08/30/19 05:09 98.0 I & O 08/29/19 08/29/19 08/30/19 15:00 23:00 07:00 Intake Total 840 ml 600 ml Balance 840 ml 600 ml Current Medications: Meds: Current Medications Medications (Trade) Dose Ordered Sig/N[place] Route PRN Reason Start Time Stop Time Status Last Admin Dose Admin Duloxetine HCl (Cymbalta) 30 mg DAILY PO 08/30/19 09:00 08/30/19 08:21 I have reviewed the current psychotropics carefully including drug interactions. Risk benefit ratio favors no change other than as noted in my dictated progress note. Diagnosis: Problems: (1) Impulse control disorder, unspecified (2) Anxiety disorder, unspecified (3) Dementia, vascular, with depression (4) Dementia, vascular, with delusions (5) Dementia in Alzheimer's disease with depression (6) Dementia in Alzheimer's disease with delusions (7) Dementia of the Alzheimer's type with early onset with behavioral disturbance (8) Major neurocognitive disorder KERWIN RICCI MD Aug 30, 2019 08:32
[2019-08-30] MEDS: DICLOFENAC SODIUM 1% TOPICAL GEL 100GM TUBE. TP SCH ×2 (08:59→20:44)
[2019-08-30 16:14] VITALS: BP 117/70
--- NOTE | 2019-08-30 18:30 | NUR ---
Patient has been forgetful, restless, compliant, helpless, and cooperative throughout this shift. She frequently requested help moving her wheelchair, including small distances within the day room. She would also ask if she had medication due, usually at meals, easily redirected by informing her that nothing was scheduled at that time. Patient was cooperative with therapy and participated in afternoon groups. Will continue to monitor.
[2019-08-30] MEDS: busPIRone 15 MG TABLET. PO SCH (20:45)
[2019-08-30] MEDS: ZOLPIDEM 5 MG TABLET. PO PRN (20:46)
[2019-08-30] MEDS: MONTELUKAST 10 MG TABLET. PO SCH (20:46)
--- NOTE | 2019-08-30 23:06 | PDOC ---
Exam Note: Thomas Note: Please also refer to the separate dictated note~for this date of service dictated separately.~Patient seen individually. Discussed the patient with Nursing staff reviewed the chart.~Reviewed interim history and current functioning. Reviewed vital signs,~Labs/ Radiology~and current medications noted below. Continue current treatment with the changes noted in the dictated addendum note Assessment: Vital Signs/I&O: Vital Signs Date Time Temp Pulse Resp B/P (MAP) Pulse Ox O2 Delivery O2 Flow Rate FiO2 08/30/19 20:46 64 117/70 08/30/19 16:14 98.0 16 97 08/30/19 08:22 Room Air I & O 08/29/19 08/29/19 08/30/19 15:00 23:00 07:00 Intake Total 840 ml 600 ml Balance 840 ml 600 ml Current Medications: Meds: Current Medications Medications (Trade) Dose Ordered Sig/[place] Route PRN Reason Start Time Stop Time Status Last Admin Dose Admin Duloxetine HCl (Cymbalta) 30 mg DAILY PO 08/30/19 09:00 08/30/19 08:21 Buspirone HCl (Buspar) 15 mg BID PO 08/30/19 21:00 08/30/19 20:45 I have reviewed the current psychotropics carefully including drug interactions. Risk benefit ratio favors no change other than as noted in my dictated progress note. Diagnosis: Problems: (1) Impulse control disorder, unspecified (2) Anxiety disorder, unspecified (3) Dementia, vascular, with depression (4) Dementia, vascular, with delusions (5) Dementia in Alzheimer's disease with depression (6) Dementia in Alzheimer's disease with delusions (7) Dementia of the Alzheimer's type with early onset with behavioral disturbance (8) Major neurocognitive disorder KERWIN RICCI MD Aug 30, 2019 23:05
--- NOTE | 2019-08-31 01:32 | NUR ---
Last evening pt was in day room at shift change and was wanting to go to bed ARYAN. After shower she continued to want to go to bed and wanted staff to do every thing for her. Encouraged pt to do things for herself that she is capable of doing which she grudgingly did then complained to peers about it. At HS she was staff splitting saying nights is nicer to her than day shift is. Later on when she was awake in bed she wanted staff to move her legs for her, again pt encouraged to do things for her self that she is capable of doing.
[2019-08-31 05:23] VITALS: BP 139/71
[2019-08-31] MEDS: LEVOTHYROXINE 88 MCG TABLET PO SCH (05:41)
[2019-08-31] MEDS: SENNOSIDES/DOCUSATE 8.6/50MG TABLET. PO SCH (08:32)
[2019-08-31] MEDS: PANTOPRAZOLE 40 MG TABLET. PO SCH (08:32)
[2019-08-31] MEDS: busPIRone 15 MG TABLET. PO SCH ×2 (08:32→20:24)
[2019-08-31] MEDS: DULoxetine HCL 30 MG CAPSULE.DR PO SCH (08:32)
[2019-08-31] MEDS: METOPROLOL TART IMMED RELEASE 50 MG TABLET PO SCH ×2 (08:33→20:24)
[2019-08-31] MEDS: CETIRIZINE HCL 10 MG TABLET PO SCH (08:33)
[2019-08-31] MEDS: LACTOBACILLUS RHAMNOSUS GG 1 CAPSULE. PO SCH ×2 (08:33→20:24)
[2019-08-31] MEDS: ASPIRIN ENTERIC COATED 325 MG TABLET.DR. PO SCH (08:33)
[2019-08-31] MEDS: MULTIVITAMIN with MINERAL TABLET. PO SCH (08:33)
[2019-08-31] MEDS: DICLOFENAC SODIUM 1% TOPICAL GEL 100GM TUBE. TP SCH ×2 (08:34→20:26)
--- NOTE | 2019-08-31 10:35 | NUR ---
Nursing note: Pt in dining room for morning meds and assessment. She was compliant with her meds whole and cooperative with assessment. Pt denied having any pain this morning. Pt did state she felt constipated. PRN MOM provided. She has been sitting quietly in the day room this morning and is currently doing stretches with activity group. Will continue to monitor.
--- NOTE | 2019-08-31 12:07 | NUR ---
Phone conversation with ELIF Araiza/daughter, who prefers referral for skilled rehab be sent to [facility] in [place]. Teodora expressed that she has discussed this with Jennifer and Jennifer is in agreement. Teodora will be involved in team meeting via phone on 09/04/19. Will follow for d/c planning once Jennifer is stable.
[2019-08-31 15:40] VITALS: BP 138/84
--- NOTE | 2019-08-31 16:24 | NUR ---
Wound Care Wound Type/Assessment: patient has a right heel stage 3 pressure ulcer Treatment Recommendations/Plan: cleanse the wound then apply Aquacel Ag with a foam dressing, change every 3 days and prn if saturated. Offloading surface/device: Podus boot to off-load the heel when patient is in the wheelchair and in bed. Discharge Recommendations for dressings: Recommendations to continue with the treatment recommendations. Notified PATI Souza about the POC, wound care will continue to f/u for changes.
--- NOTE | 2019-08-31 16:33 | NUR ---
1:1 with Jennifer to socialize and support. Jennifer was sitting up in the day room watching television. She seemed anxious around the blister on her heel and not being able to get herself to and from meals and about the unit. Reassurance provided and per nursing a boot has been ordered to protect the heel, just waiting for it to be delivered. Jennifer continued to be anxious even with reassurance. Attempted to distract to conversation about recent group therapy that she has been involved with, cherie today, music yesterday. Jennifer did thank this worker for support. Will follow.
[2019-08-31] MEDS: MONTELUKAST 10 MG TABLET. PO SCH (20:24)
[2019-08-31] MEDS: ZOLPIDEM 5 MG TABLET. PO PRN (20:28)
--- NOTE | 2019-08-31 22:21 | PDOC ---
Exam Note: Thomas Note: Please also refer to the separate dictated note~for this date of service dictated separately.~Patient seen individually. Discussed the patient with Nursing staff reviewed the chart.~Reviewed interim history and current functioning. Reviewed vital signs,~Labs/ Radiology~and current medications noted below. Continue current treatment with the changes noted in the dictated addendum note Assessment: Vital Signs/I&O: Vital Signs Date Time Temp Pulse Resp B/P (MAP) Pulse Ox O2 Delivery O2 Flow Rate FiO2 08/31/19 20:24 67 138/84 08/31/19 15:40 97.6 16 97 08/30/19 08:22 Room Air I & O 08/30/19 08/30/19 08/31/19 15:00 23:00 07:00 Intake Total 840 ml 360 ml 240 ml Balance 840 ml 360 ml 240 ml Current Medications: I have reviewed the current psychotropics carefully including drug interactions. Risk benefit ratio favors no change other than as noted in my dictated progress note. Diagnosis: Problems: (1) Impulse control disorder, unspecified (2) Anxiety disorder, unspecified (3) Dementia, vascular, with depression (4) Dementia, vascular, with delusions (5) Dementia in Alzheimer's disease with depression (6) Dementia in Alzheimer's disease with delusions (7) Dementia of the Alzheimer's type with early onset with behavioral disturbance (8) Major neurocognitive disorder KERWIN RICCI MD Aug 31, 2019 22:21
[2019-09-01] MEDS: LEVOTHYROXINE 88 MCG TABLET PO SCH (05:57)
[2019-09-01 06:29] VITALS: BP 161/70
--- NOTE | 2019-09-01 07:29 | PDOC ---
Exam Note: Thomas Note: This note is a late entry for 08/30/2019 covers elements not covered in my initial note. Subjective: The patient was seen individually in the evening of 08/30/2019. Per Sukh KRUEGER, she slept 6 hours previous night. She has not been aggressive. At night the patient did talk to her daughter. She refuses to assist herself in the wheelchair or to make an effort to propel herself. I processed this with her. Review of Systems: Ambulation impaired in wheelchair. No CV, , pulmonary, eye system symptoms on review. Mental Status Exam: The patient is oriented reasonably. Insight and judgment, recent and remote memory, attention and concentration, fund of knowledge is poor consistent with her diagnoses. Laboratory Data: Reviewed. Impression: Major neurocognitive disorder Alzheimer, vascular with delusion, depression, behavioral disturbance. Anxiety disorder unspecified. Impulse control disorder unspecified. Major depressive disorder. Plan: Continue current psychotropics from initial note. Assessment: Vital Signs/I&O: Vital Signs Date Time Temp Pulse Resp B/P (MAP) Pulse Ox O2 Delivery O2 Flow Rate FiO2 09/01/19 06:29 98.1 71 18 161/70 (100) 91 08/30/19 08:22 Room Air I & O 08/31/19 08/31/19 09/01/19 15:00 23:00 07:00 Intake Total 720 ml 480 ml Balance 720 ml 480 ml Current Medications: I have reviewed the current psychotropics carefully including drug interactions. Risk benefit ratio favors no change other than as noted in my dictated progress note. Diagnosis: Problems: (1) Impulse control disorder, unspecified (2) Anxiety disorder, unspecified (3) Dementia, vascular, with depression (4) Dementia, vascular, with delusions (5) Dementia in Alzheimer's disease with depression (6) Dementia in Alzheimer's disease with delusions (7) Dementia of the Alzheimer's type with early onset with behavioral disturbance (8) Major neurocognitive disorder KERWIN RICCI MD Sep 01, 2019 07:29
--- NOTE | 2019-09-01 07:52 | PDOC ---
Exam Note: Thomas Note: This note is a late entry for 08/31/2019 covers elements not covered in my initial note. Subjective: The patient was seen individually in the evening of 08/31/2019. Per Sabrina KRUEGER, she slept 5-1/2 hours previous night. She remains confused. She was splitting staff previous evening. Review of Systems: Ambulation impaired in wheelchair. No CV, , pulmonary, eye system symptoms on review. Reliability poor. Mental Status Exam: The patient is oriented reasonably. Insight and judgment, recent and remote memory, attention and concentration, fund of knowledge is poor consistent with her diagnoses. Laboratory Data: Reviewed. Impression: Major neurocognitive disorder Alzheimer, vascular with delusion, depression, behavioral disturbance. Anxiety disorder unspecified. Impulse control disorder unspecified. Major depressive disorder. Plan: No change from initial note. Assessment: Vital Signs/I&O: Vital Signs Date Time Temp Pulse Resp B/P (MAP) Pulse Ox O2 Delivery O2 Flow Rate FiO2 09/01/19 06:29 98.1 71 18 161/70 (100) 91 08/30/19 08:22 Room Air I & O 08/31/19 08/31/19 09/01/19 15:00 23:00 07:00 Intake Total 720 ml 480 ml Balance 720 ml 480 ml Current Medications: I have reviewed the current psychotropics carefully including drug interactions. Risk benefit ratio favors no change other than as noted in my dictated progress note. Diagnosis: Problems: (1) Impulse control disorder, unspecified (2) Anxiety disorder, unspecified (3) Dementia, vascular, with depression (4) Dementia, vascular, with delusions (5) Dementia in Alzheimer's disease with depression (6) Dementia in Alzheimer's disease with delusions (7) Dementia of the Alzheimer's type with early onset with behavioral disturbance (8) Major neurocognitive disorder KERWIN RICCI MD Sep 01, 2019 07:52
[2019-09-01] MEDS: CETIRIZINE HCL 10 MG TABLET PO SCH (08:51)
[2019-09-01] MEDS: LACTOBACILLUS RHAMNOSUS GG 1 CAPSULE. PO SCH ×2 (08:51→20:10)
[2019-09-01] MEDS: PANTOPRAZOLE 40 MG TABLET. PO SCH (08:51)
[2019-09-01] MEDS: busPIRone 15 MG TABLET. PO SCH ×2 (08:51→20:10)
[2019-09-01] MEDS: SENNOSIDES/DOCUSATE 8.6/50MG TABLET. PO SCH (08:51)
[2019-09-01] MEDS: ASPIRIN ENTERIC COATED 325 MG TABLET.DR. PO SCH (08:51)
[2019-09-01] MEDS: METOPROLOL TART IMMED RELEASE 50 MG TABLET PO SCH ×2 (08:51→20:11)
[2019-09-01] MEDS: DULoxetine HCL 30 MG CAPSULE.DR PO SCH (08:52)
[2019-09-01] MEDS: MULTIVITAMIN with MINERAL TABLET. PO SCH (08:52)
[2019-09-01] MEDS: DICLOFENAC SODIUM 1% TOPICAL GEL 100GM TUBE. TP SCH ×2 (08:53→20:11)
[2019-09-01 15:43] VITALS: BP 121/70
--- NOTE | 2019-09-01 16:00 | NUR ---
Nursing note: Pt in dining room for morning meds and assessment. She was happy, compliant with meds whole, and cooperative with her assessment. She denied having any pain. Pt has remained in the day room and socializing with others for most of the day. Will continue to monitor.
--- NOTE | 2019-09-01 16:16 | NUR ---
1:1 with Jennifer to socialize and support. She attended both group activities today and had a shower this morning. She is less anxious today than yesterday. She is wearing a boot to her foot. She is social and initiates conversation with others. She plans to have another face time call with her daughter on Wednesday.
[2019-09-01 16:49] LABS: BILIRUBIN,URINE NEG (NEG); CLARITY,URINE CLEAR; COLOR,URINE YELLOW; GLUCOSE,URINE NEG (NEG)
[2019-09-01 16:50] LABS: BACTERIA,URINE FEW /HPF (0-FEW); NITRITE,URINE NEG (NEG); RBC,URINE OCC /HPF (0-2); SQUAMOUS EPITHELIAL CELL,UR MANY /LPF; UROBILINOGEN,URINE 0.2 mg/dL (0.2 mg/dL)
--- NOTE | 2019-09-01 18:43 | NUR ---
Nursing note: Pt c/o feeling the urge to urinate, but unable to do so when sitting on the toilet. Bladder scan showed [address] Myron rivera. Orders received for straight cath PRN and obtain urine culture. Straight cath performed with 800 ml output. Urine culture sent to lab. Will report to oncoming shift.
[2019-09-01] MEDS: ZOLPIDEM 5 MG TABLET. PO PRN (20:11)
[2019-09-01] MEDS: MONTELUKAST 10 MG TABLET. PO SCH (20:11)
--- NOTE | 2019-09-01 22:06 | PDOC ---
Exam Note: Thomas Note: Please also refer to the separate dictated note~for this date of service dictated separately.~Patient seen individually. Discussed the patient with Nursing staff reviewed the chart.~Reviewed interim history and current functioning. Reviewed vital signs,~Labs/ Radiology~and current medications noted below. Continue current treatment with the changes noted in the dictated addendum note Assessment: Vital Signs/I&O: Vital Signs Date Time Temp Pulse Resp B/P (MAP) Pulse Ox O2 Delivery O2 Flow Rate FiO2 09/01/19 20:11 80 121/70 09/01/19 15:43 97.7 18 96 Room Air I & O 08/31/19 08/31/19 09/01/19 15:00 23:00 07:00 Intake Total 720 ml 480 ml Balance 720 ml 480 ml Labs: Laboratory Tests Test 09/01/19 15:38 Urine Collection Type Clean catch Urine Color Yellow Urine Clarity Clear Urine pH 5.0 Urine Specific Taylor 1.020 Urine Protein Neg (NEG-TRACE) Urine Glucose (UA) Neg mg/dL (NEG) Urine Ketones (Stick) Neg mg/dL (NEG) Urine Blood Neg (NEG) Urine Nitrite Neg (NEG) Urine Bilirubin Neg (NEG) Urine Urobilinogen Dipstick 0.2 mg/dL (0.2 mg/dL) Urine Leukocyte Esterase Neg (NEG) Urine RBC Occ /HPF (0-2) Urine WBC 1-4 /HPF (0-4) Urine Squamous Epithelial Cells Many /LPF Urine Bacteria Few /HPF (0-FEW) Current Medications: I have reviewed the current psychotropics carefully including drug interactions. Risk benefit ratio favors no change other than as noted in my dictated progress note. Diagnosis: Problems: (1) Impulse control disorder, unspecified (2) Anxiety disorder, unspecified (3) Dementia, vascular, with depression (4) Dementia, vascular, with delusions (5) Dementia in Alzheimer's disease with depression (6) Dementia in Alzheimer's disease with delusions (7) Dementia of the Alzheimer's type with early onset with behavioral disturbance (8) Major neurocognitive disorder KERWIN RICCI MD Sep 01, 2019 22:06
[2019-09-02] MEDS: LEVOTHYROXINE 88 MCG TABLET PO SCH (05:15)
--- NOTE | 2019-09-02 06:51 | NUR ---
Pt Slept well last night and has been pleasant and cooperative. She take her meds whole from a spoon 1-2 at a time. This morning her brief was very wet and when placed on toilet she was unable to void. Bladder scan showed over 360ml. Straight cath done and 400cc clear lino urine drained. Pt cooperative and tolerated procedure well then taken to day room in wheel chair.
[2019-09-02] MEDS: ASPIRIN ENTERIC COATED 325 MG TABLET.DR. PO SCH (08:57)
[2019-09-02] MEDS: DULoxetine HCL 30 MG CAPSULE.DR PO SCH (08:57)
[2019-09-02] MEDS: LACTOBACILLUS RHAMNOSUS GG 1 CAPSULE. PO SCH ×2 (08:57→19:55)
[2019-09-02] MEDS: busPIRone 15 MG TABLET. PO SCH ×2 (08:57→19:56)
[2019-09-02] MEDS: METOPROLOL TART IMMED RELEASE 50 MG TABLET PO SCH ×2 (08:58→19:56)
[2019-09-02] MEDS: CETIRIZINE HCL 10 MG TABLET PO SCH (08:58)
[2019-09-02] MEDS: MULTIVITAMIN with MINERAL TABLET. PO SCH (08:58)
[2019-09-02] MEDS: PANTOPRAZOLE 40 MG TABLET. PO SCH (08:58)
[2019-09-02] MEDS: DICLOFENAC SODIUM 1% TOPICAL GEL 100GM TUBE. TP SCH ×2 (08:58→19:56)
[2019-09-02] MEDS: SENNOSIDES/DOCUSATE 8.6/50MG TABLET. PO SCH (08:58)
--- NOTE | 2019-09-02 10:08 | NUR ---
pt is calm, cooperative, compliant. No agitation, no aggression, no hallucinations, no delusions. She is compliant with her assessment and medications.
[2019-09-02 11:52] LABS: BASO # 0.1 x10^3/uL (0.0-0.2); BASO % 1 % (0-3); EOS # 0.1 x10^3/uL (0.0-0.7); EOS % 1 % (0-3); HEMATOCRIT 30.9 % (36.0-47.0); HEMOGLOBIN 10.6 g/dL (12.0-15.5); LYMPH % 17 % (24-48); MEAN CORPUSCULAR HEMOGLOBIN 26 pg (25-35); MEAN CORPUSCULAR HGB CONC 34 g/dL (31-37); MEAN CORPUSCULAR VOLUME 76 fL (79-100); MONO # 0.5 x10^3/uL (0.0-1.1); MONO % 8 % (0-9); NEUT # 4.4 x10^3uL (1.8-7.7); NEUT % 74 % (31-73); PLATELET COUNT 456 x10^3/uL (140-400); RED BLOOD COUNT 4.08 x10^6/uL (3.50-5.40); RED CELL DISTRIBUTION WIDTH 15.5 % (11.5-14.5)
[2019-09-02 12:16] LABS: ALBUMIN/GLOBULIN RATIO 0.9 (1.0-1.7); CALCIUM 8.3 mg/dL (8.5-10.1); CREATININE 0.9 mg/dL (0.6-1.0); GFR 59.5; POTASSIUM 3.8 mmol/L (3.5-5.1); TOTAL BILIRUBIN 0.5 mg/dL (0.2-1.0); TOTAL PROTEIN 6.4 g/dL (6.4-8.2)
[2019-09-02 16:26] VITALS: BP 138/77
--- NOTE | 2019-09-02 18:09 | NUR ---
UROLOGY PHYSICIAN ASSISTANT's and nurses observed no urine output for pt. Nursing utilized PRN straight cath order. 250mls of clear medium lino colored urine drained from pts bladder. pt tolerated procedure well.
[2019-09-02] MEDS: MONTELUKAST 10 MG TABLET. PO SCH (19:55)
[2019-09-02] MEDS: ZOLPIDEM 5 MG TABLET. PO PRN (19:56)
--- NOTE | 2019-09-02 22:26 | PDOC ---
Exam Note: Thomas Note: Please also refer to the separate dictated note~for this date of service dictated separately.~Patient seen individually. Discussed the patient with Nursing staff reviewed the chart.~Reviewed interim history and current functioning. Reviewed vital signs,~Labs/ Radiology~and current medications noted below. Continue current treatment with the changes noted in the dictated addendum note Assessment: Vital Signs/I&O: Vital Signs Date Time Temp Pulse Resp B/P (MAP) Pulse Ox O2 Delivery O2 Flow Rate FiO2 09/02/19 19:56 105 138/77 09/02/19 16:26 98.8 20 95 09/01/19 15:43 Room Air I & O 09/01/19 09/01/19 09/02/19 15:00 23:00 07:00 Intake Total 720 ml 720 ml Balance 720 ml 720 ml Labs: Laboratory Tests Test 09/02/19 11:00 White Blood Count 6.0 x10^3/uL (4.0-11.0) Red Blood Count 4.08 x10^6/uL (3.50-5.40) Hemoglobin 10.6 g/dL (12.0-15.5) L Hematocrit 30.9 % (36.0-47.0) L Mean Corpuscular Volume 76 fL (79-100) L Mean Corpuscular Hemoglobin 26 pg (25-35) Mean Corpuscular Hemoglobin Concent 34 g/dL (31-37) Red Cell Distribution Width 15.5 % (11.5-14.5) H Platelet Count 456 x10^3/uL (140-400) H Neutrophils (%) (Auto) 74 % (31-73) H Lymphocytes (%) (Auto) 17 % (24-48) L Monocytes (%) (Auto) 8 % (0-9) Eosinophils (%) (Auto) 1 % (0-3) Basophils (%) (Auto) 1 % (0-3) Neutrophils # (Auto) 4.4 x10^3uL (1.8-7.7) Lymphocytes # (Auto) 1.0 x10^3/uL (1.0-4.8) Monocytes # (Auto) 0.5 x10^3/uL (0.0-1.1) Eosinophils # (Auto) 0.1 x10^3/uL (0.0-0.7) Basophils # (Auto) 0.1 x10^3/uL (0.0-0.2) Sodium Level 131 mmol/L (136-145) L Potassium Level 3.8 mmol/L (3.5-5.1) Chloride Level 95 mmol/L (98-107) L Carbon Dioxide Level 28 mmol/L (21-32) Anion Gap 8 (6-14) Blood Urea Nitrogen 17 mg/dL (7-20) Creatinine 0.9 mg/dL (0.6-1.0) Estimated GFR (Cockcroft-Gault) 59.5 BUN/Creatinine Ratio 19 (6-20) Glucose Level 103 mg/dL (70-99) H Calcium Level 8.3 mg/dL (8.5-10.1) L Total Bilirubin 0.5 mg/dL (0.2-1.0) Aspartate Amino Transferase (AST) 25 U/L (15-37) Alanine Aminotransferase (ALT) 23 U/L (14-59) Alkaline Phosphatase 112 U/L (46-116) Total Protein 6.4 g/dL (6.4-8.2) Albumin 3.0 g/dL (3.4-5.0) L Albumin/Globulin Ratio 0.9 (1.0-1.7) L Current Medications: I have reviewed the current psychotropics carefully including drug interactions. Risk benefit ratio favors no change other than as noted in my dictated progress note. Diagnosis: Problems: (1) Impulse control disorder, unspecified (2) Anxiety disorder, unspecified (3) Dementia, vascular, with depression (4) Dementia, vascular, with delusions (5) Dementia in Alzheimer's disease with depression (6) Dementia in Alzheimer's disease with delusions (7) Dementia of the Alzheimer's type with early onset with behavioral disturbance (8) Major neurocognitive disorder KERWIN RICCI MD Sep 02, 2019 22:26
--- NOTE | 2019-09-02 22:37 | NUR ---
Pt located in the dayroom this evening. Pt compliant with whole medications. Pt slightly anxious, asking when she can go to bed. PRN Marquezien administered with HS medications.
[2019-09-03] MEDS: LEVOTHYROXINE 88 MCG TABLET PO SCH (05:19)
[2019-09-03] MEDS: ACETAMINOPHEN 325 MG TABLET PO PRN (05:20)
[2019-09-03 05:52] VITALS: BP 159/73
--- NOTE | 2019-09-03 05:53 | NUR ---
Pt did not void this shift. Bladder scan revealed >350cc. Straight cath performed. 400cc of dark yellow urine obtained.
--- NOTE | 2019-09-03 07:07 | PDOC ---
Exam Note: Thomas Note: This note is a late entry for 09/01/2019 covers elements not covered in my initial note. Subjective: The patient was seen individually in the evening of 09/01/2019. Per Sabrina KRUEGER, she slept 7 hours previous night. UA will be checked. She is drinking a lot of water. Bladder scan showed 500 mL. She may need to be straight catheterized. We will defer to Dr. Sanches. She had a Jung in the past prior to coming here while she was at [facility]. She is compliant with medications. Review of Systems: Ambulation impaired in wheelchair. No CV, GI, pulmonary, eye system symptoms on review. Mental Status Exam: Reasonably oriented. Insight and judgment, recent and remote memory, attention and concentration, fund of knowledge is poor consistent with her diagnoses. Laboratory Data: Reviewed. Impression: Major neurocognitive disorder Alzheimer, vascular with delusion, depression, behavioral disturbance. Anxiety disorder unspecified. Impulse control disorder unspecified. Major depressive disorder. Plan: No change from initial note. Assessment: Vital Signs/I&O: Vital Signs Date Time Temp Pulse Resp B/P (MAP) Pulse Ox O2 Delivery O2 Flow Rate FiO2 09/03/19 05:52 98.1 77 18 159/73 (101) 94 09/01/19 15:43 Room Air I & O 09/02/19 09/02/19 09/03/19 15:00 23:00 07:00 Intake Total 720 ml 360 ml Output Total 250 ml 400 ml Balance 720 ml 110 ml -400 ml Labs: Laboratory Tests Test 09/02/19 11:00 White Blood Count 6.0 x10^3/uL (4.0-11.0) Red Blood Count 4.08 x10^6/uL (3.50-5.40) Hemoglobin 10.6 g/dL (12.0-15.5) L Hematocrit 30.9 % (36.0-47.0) L Mean Corpuscular Volume 76 fL (79-100) L Mean Corpuscular Hemoglobin 26 pg (25-35) Mean Corpuscular Hemoglobin Concent 34 g/dL (31-37) Red Cell Distribution Width 15.5 % (11.5-14.5) H Platelet Count 456 x10^3/uL (140-400) H Neutrophils (%) (Auto) 74 % (31-73) H Lymphocytes (%) (Auto) 17 % (24-48) L Monocytes (%) (Auto) 8 % (0-9) Eosinophils (%) (Auto) 1 % (0-3) Basophils (%) (Auto) 1 % (0-3) Neutrophils # (Auto) 4.4 x10^3uL (1.8-7.7) Lymphocytes # (Auto) 1.0 x10^3/uL (1.0-4.8) Monocytes # (Auto) 0.5 x10^3/uL (0.0-1.1) Eosinophils # (Auto) 0.1 x10^3/uL (0.0-0.7) Basophils # (Auto) 0.1 x10^3/uL (0.0-0.2) Sodium Level 131 mmol/L (136-145) L Potassium Level 3.8 mmol/L (3.5-5.1) Chloride Level 95 mmol/L (98-107) L Carbon Dioxide Level 28 mmol/L (21-32) Anion Gap 8 (6-14) Blood Urea Nitrogen 17 mg/dL (7-20) Creatinine 0.9 mg/dL (0.6-1.0) Estimated GFR (Cockcroft-Gault) 59.5 BUN/Creatinine Ratio 19 (6-20) Glucose Level 103 mg/dL (70-99) H Calcium Level 8.3 mg/dL (8.5-10.1) L Total Bilirubin 0.5 mg/dL (0.2-1.0) Aspartate Amino Transferase (AST) 25 U/L (15-37) Alanine Aminotransferase (ALT) 23 U/L (14-59) Alkaline Phosphatase 112 U/L (46-116) Total Protein 6.4 g/dL (6.4-8.2) Albumin 3.0 g/dL (3.4-5.0) L Albumin/Globulin Ratio 0.9 (1.0-1.7) L Current Medications: I have reviewed the current psychotropics carefully including drug interactions. Risk benefit ratio favors no change other than as noted in my dictated progress note. Diagnosis: Problems: (1) Impulse control disorder, unspecified (2) Anxiety disorder, unspecified (3) Dementia, vascular, with depression (4) Dementia, vascular, with delusions (5) Dementia in Alzheimer's disease with depression (6) Dementia in Alzheimer's disease with delusions (7) Dementia of the Alzheimer's type with early onset with behavioral disturbance (8) Major neurocognitive disorder KERWIN RICCI MD Sep 03, 2019 07:07
--- NOTE | 2019-09-03 07:31 | PDOC ---
Exam Note: Thomas Note: This note is a late entry for 09/02/2019 covers elements not covered in my initial note. Subjective: The patient was seen individually in the evening of 09/02/2019. Per Esperanza KRUEGER, she slept 7-3/4 hours previous night. She has been started on Flomax and getting a straight catheter as well. Review of Systems: Ambulation impaired in wheelchair. No CV, GI, pulmonary, eye system symptoms on review. Reliability poor. Mental Status Exam: The patient is oriented reasonably. Insight and judgment, recent and remote memory, attention and concentration, fund of knowledge is poor consistent with her diagnoses. Laboratory Data: Reviewed. Sodium 131. Impression: Major neurocognitive disorder Alzheimer, vascular with delusion, depression, behavioral disturbance. Anxiety disorder unspecified. Impulse control disorder unspecified. Major depressive disorder. Plan: No change from initial note. Assessment: Vital Signs/I&O: Vital Signs Date Time Temp Pulse Resp B/P (MAP) Pulse Ox O2 Delivery O2 Flow Rate FiO2 09/03/19 05:52 98.1 77 18 159/73 (101) 94 09/01/19 15:43 Room Air I & O 09/02/19 09/02/19 09/03/19 15:00 23:00 07:00 Intake Total 720 ml 360 ml Output Total 250 ml 400 ml Balance 720 ml 110 ml -400 ml Labs: Laboratory Tests Test 09/02/19 11:00 White Blood Count 6.0 x10^3/uL (4.0-11.0) Red Blood Count 4.08 x10^6/uL (3.50-5.40) Hemoglobin 10.6 g/dL (12.0-15.5) L Hematocrit 30.9 % (36.0-47.0) L Mean Corpuscular Volume 76 fL (79-100) L Mean Corpuscular Hemoglobin 26 pg (25-35) Mean Corpuscular Hemoglobin Concent 34 g/dL (31-37) Red Cell Distribution Width 15.5 % (11.5-14.5) H Platelet Count 456 x10^3/uL (140-400) H Neutrophils (%) (Auto) 74 % (31-73) H Lymphocytes (%) (Auto) 17 % (24-48) L Monocytes (%) (Auto) 8 % (0-9) Eosinophils (%) (Auto) 1 % (0-3) Basophils (%) (Auto) 1 % (0-3) Neutrophils # (Auto) 4.4 x10^3uL (1.8-7.7) Lymphocytes # (Auto) 1.0 x10^3/uL (1.0-4.8) Monocytes # (Auto) 0.5 x10^3/uL (0.0-1.1) Eosinophils # (Auto) 0.1 x10^3/uL (0.0-0.7) Basophils # (Auto) 0.1 x10^3/uL (0.0-0.2) Sodium Level 131 mmol/L (136-145) L Potassium Level 3.8 mmol/L (3.5-5.1) Chloride Level 95 mmol/L (98-107) L Carbon Dioxide Level 28 mmol/L (21-32) Anion Gap 8 (6-14) Blood Urea Nitrogen 17 mg/dL (7-20) Creatinine 0.9 mg/dL (0.6-1.0) Estimated GFR (Cockcroft-Gault) 59.5 BUN/Creatinine Ratio 19 (6-20) Glucose Level 103 mg/dL (70-99) H Calcium Level 8.3 mg/dL (8.5-10.1) L Total Bilirubin 0.5 mg/dL (0.2-1.0) Aspartate Amino Transferase (AST) 25 U/L (15-37) Alanine Aminotransferase (ALT) 23 U/L (14-59) Alkaline Phosphatase 112 U/L (46-116) Total Protein 6.4 g/dL (6.4-8.2) Albumin 3.0 g/dL (3.4-5.0) L Albumin/Globulin Ratio 0.9 (1.0-1.7) L Current Medications: I have reviewed the current psychotropics carefully including drug interactions. Risk benefit ratio favors no change other than as noted in my dictated progress note. Diagnosis: Problems: (1) Impulse control disorder, unspecified (2) Anxiety disorder, unspecified (3) Dementia, vascular, with depression (4) Dementia, vascular, with delusions (5) Dementia in Alzheimer's disease with depression (6) Dementia in Alzheimer's disease with delusions (7) Dementia of the Alzheimer's type with early onset with behavioral disturbance (8) Major neurocognitive disorder KERWIN RICCI MD Sep 03, 2019 07:31
[2019-09-03] MEDS: TAMSULOSIN 0.4 MG CAP.ER.24H. PO SCH ×2 (08:45→19:55)
[2019-09-03] MEDS: LACTOBACILLUS RHAMNOSUS GG 1 CAPSULE. PO SCH ×2 (08:45→19:55)
[2019-09-03] MEDS: ASPIRIN ENTERIC COATED 325 MG TABLET.DR. PO SCH (08:45)
[2019-09-03] MEDS: busPIRone 15 MG TABLET. PO SCH ×2 (08:45→19:55)
[2019-09-03] MEDS: DULoxetine HCL 30 MG CAPSULE.DR PO SCH (08:45)
[2019-09-03] MEDS: SENNOSIDES/DOCUSATE 8.6/50MG TABLET. PO SCH (08:46)
[2019-09-03] MEDS: METOPROLOL TART IMMED RELEASE 50 MG TABLET PO SCH ×2 (08:46→19:56)
[2019-09-03] MEDS: PANTOPRAZOLE 40 MG TABLET. PO SCH (08:46)
[2019-09-03] MEDS: CETIRIZINE HCL 10 MG TABLET PO SCH (08:46)
[2019-09-03] MEDS: MULTIVITAMIN with MINERAL TABLET. PO SCH (08:46)
[2019-09-03] MEDS: DICLOFENAC SODIUM 1% TOPICAL GEL 100GM TUBE. TP SCH ×2 (08:48→19:56)
[2019-09-03] MEDS ORDERED: TAMSULOSIN 0.4 MG CAP.ER.24H. PO ONE (09:00)
--- NOTE | 2019-09-03 10:26 | NUR ---
She is compliant with her assessment and medications. Pt is calm, cooperative, compliant. No agitation, no aggression, no hallucinations, no delusions.
--- NOTE | 2019-09-03 13:00 | NUR ---
Resumed care of pt.
[2019-09-03 15:50] VITALS: BP 128/79
--- NOTE | 2019-09-03 17:37 | NUR ---
Pt has not voided this shift. Has had 2 loose stools today and a small amount in brief at 1545. Staff bladder scanned pt for 302. This is the 4th straight cath in 2 days. Jung 16F placed to DD.
[2019-09-03] MEDS: MONTELUKAST 10 MG TABLET. PO SCH (19:55)
[2019-09-03] MEDS: ZOLPIDEM 5 MG TABLET. PO PRN (19:56)
[2019-09-03] MEDS ORDERED: TAMSULOSIN 0.4 MG CAP.ER.24H. PO SCH (21:00)
--- NOTE | 2019-09-03 22:06 | PDOC ---
Exam Note: Thomas Note: Please also refer to the separate dictated note~for this date of service dictated separately.~Patient seen individually. Discussed the patient with Nursing staff reviewed the chart.~Reviewed interim history and current functioning. Reviewed vital signs,~Labs/ Radiology~and current medications noted below. Continue current treatment with the changes noted in the dictated addendum note Assessment: Vital Signs/I&O: Vital Signs Date Time Temp Pulse Resp B/P (MAP) Pulse Ox O2 Delivery O2 Flow Rate FiO2 09/03/19 19:56 78 128/79 09/03/19 15:50 97.9 18 94 09/01/19 15:43 Room Air I & O 09/02/19 09/02/19 09/03/19 15:00 23:00 07:00 Intake Total 720 ml 360 ml Output Total 250 ml 400 ml Balance 720 ml 110 ml -400 ml Current Medications: Meds: Current Medications Medications (Trade) Dose Ordered Sig/[place] Route PRN Reason Start Time Stop Time Status Last Admin Dose Admin Tamsulosin HCl (Flomax) 0.4 mg QHS PO 09/03/19 08:30 09/03/19 19:55 I have reviewed the current psychotropics carefully including drug interactions. Risk benefit ratio favors no change other than as noted in my dictated progress note. Diagnosis: Problems: (1) Impulse control disorder, unspecified (2) Anxiety disorder, unspecified (3) Dementia, vascular, with depression (4) Dementia, vascular, with delusions (5) Dementia in Alzheimer's disease with depression (6) Dementia in Alzheimer's disease with delusions (7) Dementia of the Alzheimer's type with early onset with behavioral disturbance (8) Major neurocognitive disorder KERWIN RICCI MD Sep 03, 2019 22:06
--- NOTE | 2019-09-03 22:27 | NUR ---
Pt located in dayroom this evening. Pt interactive and anxious, asking when she can go to bed. Compliant with whole medications. Continues to act helpless at times and does not want to do things for herself.
[2019-09-04] MEDS: LEVOTHYROXINE 88 MCG TABLET PO SCH (05:17)
[2019-09-04 05:51] VITALS: BP 120/70
[2019-09-04] MEDS: MULTIVITAMIN with MINERAL TABLET. PO SCH (08:41)
[2019-09-04] MEDS: LACTOBACILLUS RHAMNOSUS GG 1 CAPSULE. PO SCH ×2 (08:41→20:06)
[2019-09-04] MEDS: SENNOSIDES/DOCUSATE 8.6/50MG TABLET. PO SCH (08:41)
[2019-09-04] MEDS: METOPROLOL TART IMMED RELEASE 50 MG TABLET PO SCH ×2 (08:41→20:06)
[2019-09-04] MEDS: PANTOPRAZOLE 40 MG TABLET. PO SCH (08:41)
[2019-09-04] MEDS: busPIRone 15 MG TABLET. PO SCH ×2 (08:41→20:06)
[2019-09-04] MEDS: DULoxetine HCL 30 MG CAPSULE.DR PO SCH (08:41)
[2019-09-04] MEDS: CETIRIZINE HCL 10 MG TABLET PO SCH (08:41)
[2019-09-04] MEDS: ASPIRIN ENTERIC COATED 325 MG TABLET.DR. PO SCH (08:41)
[2019-09-04] MEDS: DICLOFENAC SODIUM 1% TOPICAL GEL 100GM TUBE. TP SCH ×2 (09:00→20:11)
--- NOTE | 2019-09-04 09:19 | NUR ---
pt is calm, cooperative, compliant. No agitation, no aggression, no hallucinations, no delusions. She is compliant with her assessment and medications.
--- NOTE | 2019-09-04 11:29 | NUR ---
WEEKLY ACTIVITY THERAPY NOTE Date of Admission: 08/26/2019 Date of AT Assessment: 08/29/19 Precipitating behaviors that initiated intake and admission: Patient was reportedly anxious, insomnia, verbally abusive to staff, distressed, restless, with self care deficits and reporting to her daughter that she wanted to . Goal aimed: to increase engagement and physical strength/endurance Initial Goal:Pt. will participate in at least one Activity Therapy group (daily exercise) per day. Weekly progress towards goal: achieved Group participation level: 9 full, 4 mod Weekly highlights: participated in all groups offered this week Behaviors observed: closer to admission- Pt. would participate in groups and be more anxious and worried about a variety of things once group was over, towards the end of the week- Pt. appeared to be a little reluctant to participate but would go with the follow without argument, overall- needs extra time to propel self down the garcia for meals and restroom, Pt. will ask for assistance Plan: no change to goal Beneficial adaptations:
--- NOTE | 2019-09-04 12:14 | TX PLAN ---
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 Change Sleep, Anxiety/Panic, Suicidal ideation, Confusion/Disoriented Problem in Patient's Words: Per Jennifer, "I fell at home and couldn't get up and they tell me my mind was acting up too." Additional Admission Comments: Per intake, anxious, insomnia, confused, verbally abusive to staff, restless, dysphoric mood, distressed, irritable, self care defecits (covered in feces), eports to daughter desire to when frustrated. Problems Active Problems: Forgetful, confused Recent fall with decline insomnia depression looking for new living arrangements Inactive Problems: Medication complaint, adequate intake of meals Pt Strengths/Limitations Ability for [facility]: Fair Cognitive Functioning/Ability: Fair Communication Skills/Ability: Fair Financial Resources: Fair Insight/Judgement: Fair Intellectual Ability: Fair Physical Health: Fair Social Skills: Fair Stability in Family: Good Verbal Skills: Fair Discharge Criteria Discharge Criteria: Adequate arrangements @DC, Adequate self-care, Improved mood/thought Preliminary Discharge Plan Preliminary DC Plan: Acute Rehab, Other Other Arrangements: Senior apartment, son will reside with her Special Precautions Fall Risk: High Initial D/C Plan Post acute rehab then move to a senior apartment Identified Discharge Needs: Jennifer's family intends for her to move to a senior apartment and her son will live with her there. They would like her to go for post acute rehab once stable on [facility] and then d/c to an apartment from there. Currently Utilized Resources Currently Utilized Resources/P: PCP Son and jadenmau support with managing household respsibilities and finances Referrals Community Resources: Skilled rehab referral Identified Problems/Hx/Goals Objectives/Short-Term Goals Short Term Goals: Dec. Aggression, Dec. Anxiety/Panic, Dec. Outbursts, Medication Stabilization, Prevent Deterioration Short Term Goals in Patient's: Per Jennifer, "That I can get out and to walk." Interventions/Frequency Staff Interventions/Frequency&: Nursing to provide routine checks, medication administration, and adl support. Psychiatry 3-5 times week. SW visits twice week. PT/OT as ordered. Recerational groups as Jennifer chooses. History Vocational History: Jennifer worked for [employer] for 25 years. 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 Social: Ballroom dancing, sewing, reading, cooking, and baking. Education: Jennifer graduated from [employer]. Community Follow-up PCP Community Provider/Family Inpu: Teodora, daughter/ELIF, was updated by SW this date. She will be involved in team meeting on 09/04/19 via phone. Treatment Plan Explained Patient/Net Technical Architect had this treatment plan explained to him/her as indicated by the signature below and has been given the opportunity to ask questions and make suggestions: Date: Patient/Net Technical Architect Signature: Status Update Update WEEKLY NOTE/UPDATE: Jennifer is averaging 75% of meal intakes and 5.5 hours of sleep. She has been cooperative and compliant with medication administration and nursing assessments. She is anxious at times and seeks assistance from staff with help propelling her w/c or completing ADL's. Jennifer is encouraged to do as much as she is able to do for herself in order to maintain her strength. She is engaged in group programming and has full participation. Jennifer has a forman catheter in place at this time due to urinary retention. UA is completed, awaiting sensitivity report. Tentative d/c late this week or early next. Will reach out to [facility] to complete skilled rehab referral. Teodora, daughter/ELIF, participated in team meeting via phone. WALLACE RECINOS Sep 04, 2019 12:14
--- NOTE | 2019-09-04 13:40 | NUR ---
Call placed to Arabella, director emergency services at [facility], with intent to inquire about senior care availability. Left message with request for return phone call, awaiting return call. Tentative d/c date of late this week or early next. Addendum: 09/04/19 at 1423 by WALLACE CALVO Received return call from Arabella who reports having skilled availability. History provided and referral faxed for review. Awaiting admit decision. Arabella expressed that Jennifer will need two Covid negatives before she can be admitted. Covid swabs have to be at least 24 hours apart. Addendum: 09/04/19 at 1501 by WALLACE CALVO Arabella from [facility] phoned back and reported they felt Jennifer needed a memory care unit which they were not accepting admissions to at this time. Call placed to Teodora, daughter/POA, to inform. Teodora will discuss with family and let SW know where they would prefer referrals be sent to.
[2019-09-04] MEDS ORDERED: BENZOCAINE/MENTHOL LOZNGE 18'S BOX. PO PRN (14:30)
[2019-09-04 16:20] VITALS: BP 163/81
[2019-09-04] MEDS: CALCIUM CARB/VIT D3 500/200 TABLET PO SCH (20:06)
[2019-09-04] MEDS: TAMSULOSIN 0.4 MG CAP.ER.24H. PO SCH (20:06)
[2019-09-04] MEDS: MONTELUKAST 10 MG TABLET. PO SCH (20:06)
[2019-09-04] MEDS: ZOLPIDEM 5 MG TABLET. PO PRN (20:11)
--- NOTE | 2019-09-04 22:05 | PDOC ---
Exam Note: Thomas Note: Please also refer to the separate dictated note~for this date of service dictated separately.~Patient seen individually. Discussed the patient with Nursing staff reviewed the chart.~Reviewed interim history and current functioning. Reviewed vital signs,~Labs/ Radiology~and current medications noted below. Continue current treatment with the changes noted in the dictated addendum note Assessment: Vital Signs/I&O: Vital Signs Date Time Temp Pulse Resp B/P (MAP) Pulse Ox O2 Delivery O2 Flow Rate FiO2 09/04/19 20:06 61 163/81 09/04/19 16:20 98.8 20 98 09/01/19 15:43 Room Air I & O 09/03/19 09/03/19 09/04/19 15:00 23:00 07:00 Intake Total 600 ml 480 ml Output Total 650 ml Balance 600 ml 480 ml -650 ml Current Medications: Meds: Current Medications Medications (Trade) Dose Ordered Sig/Neville Route PRN Reason Start Time Stop Time Status Last Admin Dose Admin Throat Lozenges (Cepacol Sore Throat Lozenge) 1 zelalem PRN Q2HR PRN PO SORE THROAT 09/04/19 14:30 09/07/19 14:29 09/04/19 20:11 Calcium/Vitamin D (Oscal D 500mg/ 200uts) 1 tab HS PO 09/04/19 21:00 09/04/19 20:06 I have reviewed the current psychotropics carefully including drug interactions. Risk benefit ratio favors no change other than as noted in my dictated progress note. 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
--- NOTE | 2019-09-04 23:27 | NUR ---
Pt sitting quietly in the day room at shift change. Pt calm, pleasant, and cooperative this evening. Pt compliant with assessment and medications administered whole.
[2019-09-05 05:00] VITALS: BP 130/60
[2019-09-05] MEDS: LEVOTHYROXINE 88 MCG TABLET PO SCH (06:00)
[2019-09-05] MEDS: SENNOSIDES/DOCUSATE 8.6/50MG TABLET. PO SCH (08:47)
--- NOTE | 2019-09-05 08:48 | NUR ---
Held ducolax r/t patient having had a large loose stool this morning.
--- NOTE | 2019-09-05 08:50 | NUR ---
Met with Jennifer on 09/04/19 to complete MMSE. Jennifer scored 17/30 indicating possible moderate cognitive impairment. Jennifer was an active participant in this afternoon's group discussion on coping with change.
--- NOTE | 2019-09-05 09:01 | NUR ---
Levothyroxine given at 0600 as scheduled by HS shift. Meditech was down.
--- NOTE | 2019-09-05 09:05 | PDOC ---
Exam Note: Thomas Note: This note is a late entry for 09/03/2019 covers elements not covered in my initial note. Subjective: The patient was seen individually in the evening of 09/03/2019. Per Yolis KRUEGER, the patient had a disturbed previous night. UA on 08/31 was negative. She has been started on Flomax for urinary retention. Remains somewhat helpless, yelling at times, wanting help but nothing specific. She has been straight catheterized because she is retaining urine. Review of Systems: Ambulation impaired in wheelchair. No CV, GI, pulmonary, eye system symptoms on review. Reliability poor. Mental Status Exam: Reasonably oriented. Insight and judgment, recent and remote memory, attention and concentration, fund of knowledge is poor consistent with her diagnoses. Laboratory Data: Reviewed. Impression: Major neurocognitive disorder Alzheimer, vascular with delusion, depression, behavioral disturbance. Anxiety disorder unspecified. Impulse cont rol disorder unspecified. Major depressive disorder. Plan: No change from initial note. Assessment: Vital Signs/I&O: Vital Signs Date Time Temp Pulse Resp B/P (MAP) Pulse Ox O2 Delivery O2 Flow Rate FiO2 09/05/19 08:30 98.4 09/04/19 20:06 61 163/81 09/04/19 16:20 20 98 09/01/19 15:43 Room Air I & O 09/04/19 09/04/19 09/05/19 15:00 23:00 07:00 Intake Total 240 ml 560 ml Balance 240 ml 560 ml Current Medications: Meds: Current Medications Medications (Trade) Dose Ordered Sig/Neville Route PRN Reason Start Time Stop Time Status Last Admin Dose Admin Throat Lozenges (Cepacol Sore Throat Lozenge) 1 zelalem PRN Q2HR PRN PO SORE THROAT 09/04/19 14:30 09/07/19 14:29 09/04/19 20:11 Calcium/Vitamin D (Oscal D 500mg/ 200uts) 1 tab HS PO 09/04/19 21:00 09/04/19 20:06 I have reviewed the current psychotropics carefully including drug interactions. Risk benefit ratio favors no change other than as noted in my dictated progress note. Diagnosis: Problems: (1) Impulse control disorder, unspecified (2) Anxiety disorder, unspecified (3) Dementia, vascular, with depression (4) Dementia, vascular, with delusions (5) Dementia in Alzheimer's disease with depression (6) Dementia in Alzheimer's disease with delusions (7) Dementia of the Alzheimer's type with early onset with behavioral disturbance (8) Major neurocognitive disorder KERWIN RICCI MD Sep 05, 2019 09:05
--- NOTE | 2019-09-05 09:23 | PDOC ---
Exam Note: Thomas Note: This note is a late entry for 09/04/2019 covers elements not covered in my initial note. Subjective: The patient was seen individually in the morning of 09/04/2019 with treatment team meeting with Jsesie (social service staff), [facility] staff, and Win KRUEGER. The patients daughter Teodora attended the meeting. She slept 5-1/2 hours previous night. Appetite is 75%. She is cooperative, compliant with medications. Daughter had many questions about medical diagnosis, psyche condition, progress, and urinary retention. We addressed all of this. Review of Systems: Ambulation impaired in wheelchair. No CV, GI, pulmonary, eye system symptoms on review. Reliability poor. Mental Status Exam: The patient is oriented reasonably. Insight and judgment, recent and remote memory, attention and concentration, fund of knowledge is poor consistent with her diagnoses. Laboratory Data: Reviewed. Impression: Major neurocognitive disorder Alzheimer, vascular with delusion, depression, behavioral disturbance. Anxiety disorder unspecified. Impulse control disorder unspecified. Major depressive disorder. Plan: No change from initial note. The patient had a straight catheter and now has been changed to Jung catheter till possibly on Wednesday. Assessment: Vital Signs/I&O: Vital Signs Date Time Temp Pulse Resp B/P (MAP) Pulse Ox O2 Delivery O2 Flow Rate FiO2 09/05/19 08:30 98.4 09/04/19 20:06 61 163/81 09/04/19 16:20 20 98 09/01/19 15:43 Room Air I & O 09/04/19 09/04/19 09/05/19 15:00 23:00 07:00 Intake Total 240 ml 560 ml Balance 240 ml 560 ml Current Medications: Meds: Current Medications Medications (Trade) Dose Ordered Sig/N[place] Route PRN Reason Start Time Stop Time Status Last Admin Dose Admin Throat Lozenges (Cepacol Sore Throat Lozenge) 1 zelalem PRN Q2HR PRN PO SORE THROAT 09/04/19 14:30 09/07/19 14:29 09/04/19 20:11 Calcium/Vitamin D (Oscal D 500mg/ 200uts) 1 tab HS PO 09/04/19 21:00 09/04/19 20:06 I have reviewed the current psychotropics carefully including drug interactions. Risk benefit ratio favors no change other than as noted in my dictated progress note. 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
[2019-09-05] MEDS: ASPIRIN ENTERIC COATED 325 MG TABLET.DR. PO SCH (09:45)
[2019-09-05] MEDS: LACTOBACILLUS RHAMNOSUS GG 1 CAPSULE. PO SCH ×2 (09:45→20:21)
[2019-09-05] MEDS: DULoxetine HCL 30 MG CAPSULE.DR PO SCH (09:45)
[2019-09-05] MEDS: PANTOPRAZOLE 40 MG TABLET. PO SCH (09:45)
[2019-09-05] MEDS: MULTIVITAMIN with MINERAL TABLET. PO SCH (09:45)
[2019-09-05] MEDS: CETIRIZINE HCL 10 MG TABLET PO SCH (09:45)
[2019-09-05] MEDS: busPIRone 15 MG TABLET. PO SCH ×2 (09:45→20:21)
[2019-09-05] MEDS: METOPROLOL TART IMMED RELEASE 50 MG TABLET PO SCH ×2 (09:46→20:21)
[2019-09-05] MEDS: DICLOFENAC SODIUM 1% TOPICAL GEL 100GM TUBE. TP SCH ×2 (09:47→20:21)
--- NOTE | 2019-09-05 14:19 | NUR ---
CARE assessment completed this afternoon via Zoom meeting with Jennifer and Amaya from [facility]. Teodora, daughter/POA, had given verbal consent for assessment to take place.
--- NOTE | 2019-09-05 14:34 | NUR ---
Notified Teodora of potential Covid exposure on [facility] and that unit will be quarantined for two weeks. Teodora is aware that she can continue to call [facility] staff for updates and visit with Jennifer via phone.
[2019-09-05 15:23] VITALS: BP 125/74
--- NOTE | 2019-09-05 18:07 | NUR ---
Patient is angry that she "has to stay here" stating her daughter would have "never signed her up for all this". Patient has been asking about getting a tv in her room. Patient is complaining about wearing the protective boot on her right foot. Patients daughter called and spoke with this nurse about the boot patient has on to protect her heel. She wanted to know it this was "a forever thing". Nurse provided education regarding patients heel breakdown and prevention tips. Daughter told nurse that patient does NOT like the boot. Patient has been in and out of her room several times, asking why there is no one in the hallways. She is angry that because of COVID protocol she now has to stay here 14 more days. She is allowed in the hallways when wearing a mask. Daughter (Teodora) later again called and spoke to CLAIM REVIEW MEDICAL DIRECTOR and stated we need to get her mom a TV for her room "from downstairs or something". Daughter was provided education regarding electronic tablet usage for patients, books available and journaling. Patient got 6.75 hours of sleep last night. She denies SI when asked and stated "that was a misunderstanding".
--- NOTE | 2019-09-05 19:48 | NUR ---
Pharmacy Consult for Xerostomia Upon reviewing the patients medication, there are four possible drug causes. Hydrocodone has a 0 to 3% incidence, Zolpidem has a 3% incidence, Cetirizine has a 5% incidence, and Duloxetine has an 11 to 14% incidence.
[2019-09-05] MEDS: TAMSULOSIN 0.4 MG CAP.ER.24H. PO SCH (20:20)
[2019-09-05] MEDS: CALCIUM CARB/VIT D3 500/200 TABLET PO SCH (20:21)
[2019-09-05] MEDS: MONTELUKAST 10 MG TABLET. PO SCH (20:21)
[2019-09-05] MEDS: ZOLPIDEM 5 MG TABLET. PO PRN (20:21)
--- NOTE | 2019-09-05 22:06 | PDOC ---
Exam Note: Thomas Note: Please also refer to the separate dictated note~for this date of service dictated separately.~Patient seen individually. Discussed the patient with Nursing staff reviewed the chart.~Reviewed interim history and current functioning. Reviewed vital signs,~Labs/ Radiology~and current medications noted below. Continue current treatment with the changes noted in the dictated addendum note Assessment: Vital Signs/I&O: Vital Signs Date Time Temp Pulse Resp B/P (MAP) Pulse Ox O2 Delivery O2 Flow Rate FiO2 09/05/19 20:45 97.9 97 09/05/19 20:21 72 125/74 09/05/19 15:23 16 09/01/19 15:43 Room Air I & O 09/04/19 09/04/19 09/05/19 15:00 23:00 07:00 Intake Total 240 ml 560 ml Output Total 500 ml Balance 240 ml 560 ml -500 ml Current Medications: I have reviewed the current psychotropics carefully including drug interactions. Risk benefit ratio favors no change other than as noted in my dictated progress note. Diagnosis: Problems: (1) Impulse control disorder, unspecified (2) Anxiety disorder, unspecified (3) Dementia, vascular, with depression (4) Dementia, vascular, with delusions (5) Dementia in Alzheimer's disease with depression (6) Dementia in Alzheimer's disease with delusions (7) Dementia of the Alzheimer's type with early onset with behavioral distur bance (8) Major neurocognitive disorder KERWIN RICCI MD Sep 05, 2019 22:05
--- NOTE | 2019-09-05 22:18 | NUR ---
Pt sitting in doorway to room at shift change. Pt irritable, demanding at times, and disorganized. Pt complaining that she had to wait to go to bed until she had taken her medications. Pt cooperative with assessment and compliant with medications administered whole. GRACE Vasquez administered with HS meds.
--- NOTE | 2019-09-06 05:10 | NUR ---
Jung catheter pulled at 0500 this morning to commence voiding trial. Pt tolerated procedure well. Will monitor and report to the oncoming shift.
[2019-09-06] MEDS: LEVOTHYROXINE 88 MCG TABLET PO SCH (05:27)
[2019-09-06 05:57] VITALS: BP 121/55
--- NOTE | 2019-09-06 07:47 | PDOC ---
Exam Note: Thomas Note: This note is a late entry for 09/05/2019 covers elements not covered in my initial note. Subjective: The patient was seen on telehealth rounds in the evening of 09/05/2019 with Stoney RN and Graciela RN. COVID-19 screen has been done on all patients and staff members since one patient has turned up positive for COVID-19 on the unit today. The unit is on lockdown per the [facility] ([facility]Centers for Disease Control (CDC) due to the COVID positive patient on our unit, which was discovered. All patients are back in their rooms and are not using main dining room either to avoid group activities and exposure. Per Omayra KRUEGER, the patient slept 6-3/4 hours previous night. She has been complaining about her boot and wants something done about it. Refused cough drops and we will make Tessalon Perles available for her p.r.n. coughing. She has been voiding herself and trying to pull out the catheter. Review of Systems: Positive for some coughing and low-grade fever. Ambulation impaired in wheelchair. No CV, , pulmonary, eye, ENT system symptoms on review. Reliability poor. Mental Status Exam: The patient is oriented reasonably. Insight and judgment, recent and remote memory, attention and concentration, fund of knowledge is poor consistent with her diagnoses. Laboratory Data: Reviewed. Impression: Major neurocognitive disorder Alzheimer, vascular with delusion, depression, behavioral disturbance. Anxiety disorder unspecified. Impulse control disorder unspecified. Major depressive disorder. Plan: We will go ahead and pull out the catheter soon and defer her to Dr. Morales. We will continue rest of the psychotropics unchanged. Adjust as clinically indicated. Assessment: Vital Signs/I&O: Vital Signs Date Time Temp Pulse Resp B/P (MAP) Pulse Ox O2 Delivery O2 Flow Rate FiO2 09/06/19 05:57 98.4 76 18 121/55 (77) 92 09/01/19 15:43 Room Air I & O 09/05/19 09/05/19 09/06/19 15:00 23:00 07:00 Intake Total 480 ml 480 ml Output Total 725 ml Balance 480 ml 480 ml -725 ml Current Medications: I have reviewed the current psychotropics carefully including drug interactions. Risk benefit ratio favors no change other than as noted in my dictated progress note. Diagnosis: Problems: (1) Impulse control disorder, unspecified (2) Anxiety disorder, unspecified (3) Dementia, vascular, with depression (4) Dementia, vascular, with delusions (5) Dementia in Alzheimer's disease with depression (6) Dementia in Alzheimer's disease with delusions (7) Dementia of the Alzheimer's type with early onset with behavioral disturbance (8) Major neurocognitive disorder KERWIN RICCI MD Sep 06, 2019 07:47
[2019-09-06] MEDS: SENNOSIDES/DOCUSATE 8.6/50MG TABLET. PO SCH (09:21)
[2019-09-06] MEDS: DULoxetine HCL 30 MG CAPSULE.DR PO SCH (09:30)
[2019-09-06] MEDS: MULTIVITAMIN with MINERAL TABLET. PO SCH (09:30)
[2019-09-06] MEDS: ASPIRIN ENTERIC COATED 325 MG TABLET.DR. PO SCH (09:30)
[2019-09-06] MEDS: LACTOBACILLUS RHAMNOSUS GG 1 CAPSULE. PO SCH ×2 (09:30→20:29)
[2019-09-06] MEDS: METOPROLOL TART IMMED RELEASE 50 MG TABLET PO SCH ×2 (09:30→20:29)
[2019-09-06] MEDS: CETIRIZINE HCL 10 MG TABLET PO SCH (09:31)
[2019-09-06] MEDS: PANTOPRAZOLE 40 MG TABLET. PO SCH (09:31)
[2019-09-06] MEDS: busPIRone 15 MG TABLET. PO SCH ×2 (09:31→20:29)
[2019-09-06] MEDS: DICLOFENAC SODIUM 1% TOPICAL GEL 100GM TUBE. TP SCH ×2 (09:35→20:31)
--- NOTE | 2019-09-06 12:46 | NUR ---
Patient very angry about COVID quarantine on unit. Patient demanding to have a television placed in her room and threatening nurse "I'll tell my daughter and call a injection molding machine offbearer" if she cannot discharge from [facility]. Patient asked nurse how long we would be "keeping her here against her will". Nurse advised patient that the COVID quarantine period was 14 days per the Health Department. Patient stated she would call her daughter, nurse explained that SW had already been in contact with patients family and they are aware that she will be quarantined for 14 days. Patient is medication compliant, she takes them one by one from a spoon that she "needs" nurse to use because she states she is too weak to lift her arms. Patient forman removed this am 0500. Patient told this nurse that she would rather have the forman in because that way she doesn't have to go into the bathroom. Patient stated she needs to urinate and told nurse to push her into bathroom. Per physical therapy assessment, patient is capable of propelling herself in the wheelchair and using bar in bathroom to assist herself to stand. Nurse strongly encouraged patient to take herself into the bathroom and push the call button if she needed assistance. Patient was able to propel her wheelchair into bathroom but immediately pushed button because she said she cannot pull her own pants down. Nurse provided education about how muscles weaken when not used regularly and encouraged patient to do as much as she can for herself. Patient did not participate in the conversation, she just sat with arms crossed staring at this nurse. Patient remains angry. Nurse asked patient if she liked to read, do crossword puzzles or anything like that in her spare time. Patient remains very upset that she is here and stated she "watches TV in her spare time".
--- NOTE | 2019-09-06 14:31 | NUR ---
Patients catheter was removed today at 0500. This nurse attempted to bladder scan patient post void at 1340. However; patient stated she was "unable to pee because she did not feel like she had to go". Patient attempted to go but did not urinate when assisted to the toilet. Bladder scan registered 66 ml. Staff stated that patient has not been drinking very much fluids today. Water glass was filled and patient encouraged to drink fluids. Will try another post void scan later this afternoon.
--- NOTE | 2019-09-06 14:38 | NUR ---
Met with Jennifer for two separate 1:1 visits to support and socialize. Jennifer expresses she is bored being confined to her room on quarantine. Provided Jennifer with color pages, word search puzzles, crayons, markers, a magazine, and Diego. Initially Jennifer declined all in room activities offered but quickly went to coloring once LUBNA set her up at her tray table. Noticed later that she had started a word search puzzle. LUBNA put on the Calm meditation yahir on the wufoo for Jennifer to listen to. Later this afternoon, LUBNA assisted Jennifer to Zoom face time with her daughter Teodora. Teodora feels that Jennifer would do better with a TV in her room or DVD player to watch movies. Directed Teodora to discuss this with community sports coordinator/director.
--- NOTE | 2019-09-06 14:43 | NUR ---
COVID 19 swab done. Patient cooperative with procedure, stated she does not remember having a swab done before admit.
[2019-09-06 15:38] VITALS: BP 127/72
--- NOTE | 2019-09-06 16:30 | NUR ---
Wound Care due to COVID lockdown, unable to assess. Discussed POC with RN. wound care will f/u on 09/18.
--- NOTE | 2019-09-06 18:24 | NUR ---
Dressing changed per instructions from wound care. Silver AG used, then covered by aqua foam bandage. Wound bed is pink, surrounding tissue appears intact. Minimal amount of brown drainage on silver AG that was taken off, no odor noted.
--- NOTE | 2019-09-06 18:29 | NUR ---
At 1635 when this patient was toileted, her brief was damp but she could not urinate, again she stated she didn't feel like she needed to go. Patient bladder scanned with results <128 ml in bladder. Patient has been drinking minimally, despite encouragement from staff. Dr Morales stated that as long as she is urinating and the post void volume is <400 ml to continue to monitor. If the post void volume is >400 ml, he gave the order to place a catheter.
[2019-09-06] MEDS: CALCIUM CARB/VIT D3 500/200 TABLET PO SCH (20:29)
[2019-09-06] MEDS: MONTELUKAST 10 MG TABLET. PO SCH (20:29)
[2019-09-06] MEDS: TAMSULOSIN 0.4 MG CAP.ER.24H. PO SCH (20:29)
--- NOTE | 2019-09-06 22:09 | PDOC ---
Exam Note: Thomas Note: Please also refer to the separate dictated note~for this date of service dictated separately.~Patient seen individually. Discussed the patient with Nursing staff reviewed the chart.~Reviewed interim history and current functioning. Reviewed vital signs,~Labs/ Radiology~and current medications noted below. Continue current treatment with the changes noted in the dictated addendum note Assessment: Vital Signs/I&O: Vital Signs Date Time Temp Pulse Resp B/P (MAP) Pulse Ox O2 Delivery O2 Flow Rate FiO2 09/06/19 20:29 56 127/72 09/06/19 19:06 98.5 09/06/19 15:38 16 97 09/01/19 15:43 Room Air I & O 09/05/19 09/05/19 09/06/19 15:00 23:00 07:00 Intake Total 480 ml 480 ml Output Total 725 ml Balance 480 ml 480 ml -725 ml Labs: Laboratory Tests Test 09/06/19 13:35 Coronavirus (COVID-19)(PCR) Positive (NEGATIVE) H Current Medications: I have reviewed the current psychotropics carefully including drug interactions. Risk benefit ratio favors no change other than as noted in my dictated progress note. 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
--- NOTE | 2019-09-07 02:21 | NUR ---
Nursing Note Pt in her room, has zero short term memory, asks repeatedly to have me give her the tissues. Pt room found to have AT LEAST 50 wadded up tissues scattered on the floor and in her wheel chair. She even had hunks stuck to her wheel chair back wheels like a kid that was going to ride in a parade. She had several in her clothing and in her sheets. Pt had no insight into how this looked. Pt assisted to bed but at each 1-3 minute interval asks the same questions. "Can i get my water, i need my quilt from over there, i need my tissues." She must have said it 20 times. Pt has no recollection of asking anything when reminded.
[2019-09-07] MEDS: LEVOTHYROXINE 88 MCG TABLET PO SCH (05:06)
[2019-09-07 06:29] VITALS: BP 130/67
--- NOTE | 2019-09-07 07:12 | PDOC ---
Exam Note: Thomas Note: This note is a late entry for 09/06/2019 covers elements not covered in my initial note. Subjective: The patient was seen on telehealth rounds in the evening of 09/06/2019 with nursing staff. The unit is on lockdown due to the COVID positive patient on our unit, which was discovered. Each patient is in their room, not able to come out to the dining room or to interact with others according to the recommendation by the [facility] of Health and Environment. Per Omayra KRUEGER, the patient slept 7-1/2 hours previous night. She has been acting more helpless. She states she is unable to move, has had limited voiding and I will defer her to Dr. Morales; otherwise cooperative. Her swab has returned COVID-19 positive. Review of Systems: She is in a wheelchair. Impaired ambulation. Positive for shortness of breath. No CV, GI/, pulmonary, eye, ENT system symptoms on review. Mental Status Exam: The patient is oriented reasonably. Insight and judgment, recent and remote memory, attention and concentration, fund of knowledge is poor consistent with her diagnoses. Laboratory Data: Reviewed. Impression: Major neurocognitive disorder Alzheimer, vascular with delusion, depression, behavioral disturbance. Anxiety disorder unspecified. Impulse control disorder unspecified. Major depressive disorder. Plan: No change from initial note. Continue Monika Alexander Ambien p.r.n. Adjust further as clinically indicated. Assessment: Vital Signs/I&O: Vital Signs Date Time Temp Pulse Resp B/P (MAP) Pulse Ox O2 Delivery O2 Flow Rate FiO2 09/07/19 06:29 98.1 70 16 130/67 (88) 93 09/01/19 15:43 Room Air I & O 09/06/19 09/06/19 09/07/19 15:00 23:00 07:00 Intake Total 720 ml 360 ml 240 ml Balance 720 ml 360 ml 240 ml Labs: Laboratory Tests Test 09/06/19 13:35 Coronavirus (COVID-19)(PCR) Positive (NEGATIVE) H Current Medications: I have reviewed the current psychotropics carefully including drug interactions. Risk benefit ratio favors no change other than as noted in my dictated progress note. Diagnosis: Problems: (1) Impulse control disorder, unspecified (2) Anxiety disorder, unspecified (3) Dementia, vascular, with depression (4) Dementia, vascular, with delusions (5) Dementia in Alzheimer's disease with depression (6) Dementia in Alzheimer's disease with delusions (7) Dementia of the Alzheimer's type with early onset with behavioral disturbance (8) Major neurocognitive disorder KERWIN RICCI MD Sep 07, 2019 07:12
--- NOTE | 2019-09-07 08:05 | NUR ---
Patient is able to urinate freely per report received from HS nurse. Per report patient has had urinary incontinence episodes and has also urinated in the toilet both last night and this morning.
[2019-09-07] MEDS: ASPIRIN ENTERIC COATED 325 MG TABLET.DR. PO SCH (10:35)
[2019-09-07] MEDS: PANTOPRAZOLE 40 MG TABLET. PO SCH (10:35)
[2019-09-07] MEDS: SENNOSIDES/DOCUSATE 8.6/50MG TABLET. PO SCH (10:35)
[2019-09-07] MEDS: busPIRone 15 MG TABLET. PO SCH (10:35)
[2019-09-07] MEDS: MULTIVITAMIN with MINERAL TABLET. PO SCH (10:35)
[2019-09-07] MEDS: CETIRIZINE HCL 10 MG TABLET PO SCH (10:35)
[2019-09-07] MEDS: DULoxetine HCL 30 MG CAPSULE.DR PO SCH (10:35)
[2019-09-07] MEDS: LACTOBACILLUS RHAMNOSUS GG 1 CAPSULE. PO SCH (10:35)
[2019-09-07 10:39] VITALS: BP 130/67
[2019-09-07] MEDS: DICLOFENAC SODIUM 1% TOPICAL GEL 100GM TUBE. TP SCH (10:39)
[2019-09-07] MEDS: METOPROLOL TART IMMED RELEASE 50 MG TABLET PO SCH (10:39)
--- NOTE | 2019-09-07 11:46 | NUR ---
Call placed to Teodora, POA/daughter, to inform that Jennifer has tested Covid positive. Informed Teodora that Jennifer will be transferred to ICU for continued care and monitoring. Provided ICU phone number to Teodora. Inquired how Teodora was feeling as Jennifer had indicated she wasn't well and Teodora shared that she too was Covid positive. Teodora expressed appreciation for the care her mother has received while on the [facility].
--- NOTE | 2019-09-07 11:49 | NUR ---
Patient quarantined in room r/t positive COVID 19 test result. Patient states she "cannot use her arm" to take her medications. Per PT/OT evaluation, patient is fully capable of using her arms. Medications given to patient on spoon by nurse r/t patients continued helplessness. Patient eventually medication compliant when nurse fed her the pills with a spoon. Patient reports bilateral knee pain, dicofenac gel applied as scheduled. Patients face appears somewhat swollen in the area around the eyes this morning. Patient denies facial/eye pain and/or light sensitivity. Patient has been drinking water and is freely urinating with no more complaints of retention. Patient continues to cough, spits into tissues and throw them about the room. Nurse picked up several tissues and put them into the trash bag. Patient reminded to please cough into elbow or tissue and to dispose of tissues into trash can, not on floor. Patients daughter called for nurse while nurse was with another patient. Daughter left message for nurse that patient "takes Reglan before meals for coughing at home and that her mother states she has been coughing more".
[2019-09-07] MEDS ORDERED: BUSP15TA PO (14:05)
[2019-09-07] MEDS ORDERED: MULT1TAB90 PO (14:08)
[2019-09-07] MEDS ORDERED: TAMS0.4C97 PO (14:08)
[2019-09-07] MEDS ORDERED: METH28OI2 TP (14:09)
[2019-09-07] MEDS ORDERED: ACET325T9 PO (14:10)
[2019-09-07] MEDS ORDERED: BENZ1LOZ48 PO (14:11)
[2019-09-07] MEDS ORDERED: DULO30CA2 PO (14:17)
[2019-09-07] MEDS ORDERED: CALC-98 PO (14:17)
[2019-09-07] MEDS ORDERED: MAG-115 PO (14:18)
[2019-09-07] MEDS ORDERED: MAGN24003 PO (14:18)
--- NOTE | 2019-09-07 14:58 | NUR ---
patient discharged to [address] [place] [address] Andrew JOSEPH COVID 19 positive.
--- NOTE | 2019-09-07 16:04 | NUR ---
Transition Record was faxed to follow-up provider with the following elements: Reason for admission, procedures, tests, principal diagnosis, pending studies, patient instructions, 14/09 contact information for unit, phone number to obtain pending test results, plan for follow-up care, physician follow-up, advanced directive information, and medication list with dose, duration and instructions. This information was included in the following documents: History and physical, lab results, study results, progress notes, social work planning form, DC instruction form, patient visit summary, and medication reconciliation form. Date & time record faxed: 09/07/19 1500 Record faxed to: 1 [facility] Record discussed with/ report given to: PATI Chavis
--- NOTE | 2019-09-07 23:32 | PDOC ---
Exam Note: Thomas Note: Please also refer to the separate dictated note~for this date of service dictated separately.~Patient seen individually. Discussed the patient with Nursing staff reviewed the chart.~Reviewed interim history and current functioning. Reviewed vital signs,~Labs/ Radiology~and current medications noted below. Continue current treatment with the changes noted in the dictated addendum note Assessment: Vital Signs/I&O: Vital Signs Date Time Temp Pulse Resp B/P (MAP) Pulse Ox O2 Delivery O2 Flow Rate FiO2 09/07/19 10:39 70 130/67 09/07/19 09:47 98.7 98 09/07/19 06:29 16 09/01/19 15:43 Room Air I & O 09/06/19 09/06/19 09/07/19 15:00 23:00 07:00 Intake Total 720 ml 360 ml 240 ml Balance 720 ml 360 ml 240 ml Current Medications: I have reviewed the current psychotropics carefully including drug interactions. Risk benefit ratio favors no change other than as noted in my dictated progress note. Diagnosis: Problems: (1) Impulse control disorder, unspecified (2) Anxiety disorder, unspecified (3) Dementia, vascular, with depression (4) Dementia, vascular, with delusions (5) Dementia in Alzheimer's disease with depression (6) Dementia in Alzheimer's disease with delusions (7) Dementia of the Alzheimer's type with early onset with behavioral disturbance (8) Major neurocognitive disorder (9) COVID-19 KERWIN RICCI MD Sep 07, 2019 23:32
[2019-09-08] MEDS ORDERED: METO5TAB55 PO (11:01)
--- NOTE | 2019-09-30 23:39 | DS ---
DATE OF DISCHARGE: 09/07/2019 DISCHARGE SUMMARY/PSYCHIATRIC PROGRESS NOTE This late entry 09/07/2019 covers elements not covered in my initial note. REASON FOR ADMISSION: Please refer to the admission history for details. Briefly, the patient is an 83-year-old female who presents to us from [facility] where she came from home, on account of worsening confusion, diagnosis of major neurocognitive disorder, vascular Alzheimer's with delusion, depression, behavioral disturbance. She was being extremely anxious, having marked confusion, insomnia, verbally abusive to staff, restless with mood was dysphoric. She was distressed, irritable, had significant self-care deficits, covered herself and feces. She reports to the daughter desire to whenever she is frustrated. She had failed outpatient psychiatric interventions. Behaviors deemed dangerous, resulting in this referral. SIGNIFICANT FINDINGS AND CLINICAL COURSE: Following admission, the patient was seen daily individually by myself from a psychiatric standpoint, medical followup per Dr. Sanches/Dr. Morales. The patient remained extremely irritable, depressed, angry, confused. Adjustments were made in her psychotropics. She seemed to respond to a combination of BuSpar 15 mg b.i.d., Cymbalta 30 mg a day, Ambien 5 mg at bedtime p.r.n. Gradually, the patient's mood appeared to improve. No suicidal or homicidal ideation. She still had memory deficits. Prior to discharge on 09/07/2019, ambulation impaired. REVIEW OF SYSTEMS: Ambulation impaired, in wheelchair due to weakness and often uses walker at times. No CV, , pulmonary, eye system symptoms on review. MENTAL STATUS EXAM: Oriented to herself. Insight, judgment, recent memory is impaired. Language function intact. Mood and affect somewhat withdrawn. LABORATORY DATA: Reviewed. FINAL DIAGNOSES: Major depressive disorder, recurrent; major neurocognitive disorder; vascular Alzheimer with delusion; depression; behavioral disturbance; anxiety disorder, unspecified; impulse control disorder, unspecified. DISCHARGE MEDICATIONS: Please refer to the MRAD. The patient was coming close to being psychiatrically stable for discharge, but on 09/07/2019, there was COVID-19 exposure on the [facility] and she tested positive and was transitioned to the COVID unit on medical/surgical floor. Time for discharge day management greater than 30 minutes. MAN Pamella RICCI MD DR: Rod JOB#: [id number] / [id number]
== END 2019-09-07 14:55 | disposition short-term general hospital (02) | DRG 56 ==
LOC: GEROPSY 16:19
PROVIDERS: ADMIT Psychiatry & Neurology Psychiatry; ATTEND Psychiatry & Neurology Psychiatry
DX: G30.0 Alzheimer's disease with early onset (principal); U07.1 COVID-19; F01.51 Vascular dementia, unspecified severity, with behavioral disturbance; F02.81 Dementia in other diseases classified elsewhere, unspecified severity, with behavioral disturbance; I10 Essential (primary) hypertension; D50.9 Iron deficiency anemia, unspecified; E03.9 Hypothyroidism, unspecified; E78.5 Hyperlipidemia, unspecified; F17.200 Nicotine dependence, unspecified, uncomplicated; F32.9 Major depressive disorder, single episode, unspecified; F41.9 Anxiety disorder, unspecified; F63.9 Impulse disorder, unspecified; G47.00 Insomnia, unspecified; K21.9 Gastro-esophageal reflux disease without esophagitis; M15.9 Polyosteoarthritis, unspecified; Z79.899 Other long term (current) drug therapy; Z88.0 Allergy status to penicillin; Z90.49 Acquired absence of other specified parts of digestive tract
CPT/HCPCS: 36415; 71045; 80053; 81001; 82306; 82607; 83036; 83540; 83550; 83735; 84436; 84443; 84480; 85025; 86592; 87077; 87086; 87186; 92610; 97110; 97116; 97530; 97535; U0003-CS

== ENCOUNTER 2019-09-07 15:27 | Inpatient (IN) | payer MEDICARE, BC ==
[~2019-09-07] VITALS: Ht 167.6 cm; Wt 68.2 kg
[2019-09-07] MEDS: PANTOPRAZOLE 40 MG TABLET. PO SCH (07:30)
[~2019-09-07 15:27] MED LIST: ACET325T9 PO; ASPI325T11 PO; BENZ1LOZ48 PO; BUSP10TA PO; BUSP15TA PO; CALC-98 PO; CETI10TA24 PO; DICL100G18 TP; DULO30CA2 PO; HYDR-2769 PO; LACT1CAP19 PO; LEVO88TA2 PO; MAG-115 PO; MAGN24003 PO; METH28OI2 TP; METO50TA6 PO; MONT10TA80 PO; MULT-245 PO; MULT1TAB90 PO; PANT40TA3 PO; SENN1TAB62 PO; SERT50TA PO; TAMS0.4C97 PO; ZOLP5TAB PO
[2019-09-07] MEDS ORDERED: MAG HYDROX/AL HYDROX/SIMETH 30 ML ORAL.SUSP PO PRN (15:45)
[2019-09-07] MEDS ORDERED: MAGNESIUM HYDROXIDE 2,400 MG/30 ML ORAL.SUSP. PO PRN (16:00)
[2019-09-07] MEDS ORDERED: METHYL SALICYLATE/MENTHOL TOPICAL OINTMENT 57GM TUBE. TP PRN (16:00)
[2019-09-07 16:31] VITALS: BP 138/62
[2019-09-07 16:44] VITALS: BP 136/70
--- NOTE | 2019-09-07 19:52 | HP ---
ADMIT DATE: 09/07/2019 HISTORY OF PRESENT ILLNESS: The patient is an 83-year-old female patient who was transferred from [facility] as she tested positive for COVID-19 when blood screening of other residents as one resident has tested positive. She is here to be quarantined. She does complain of cough that is mostly dry. Denied any chest pain or shortness of breath. Denied any chills, rigors, or fever. Denied any diarrhea. The patient is an 83-year-old female patient who was admitted to [facility] on account of being anxious, confused, verbally abusive to staff, restless. Her mood is dysphoric, stressed, irritable. She has severe self-care deficit. She has insomnia. She reports that her daughter desired to when frustrated and all this is in a background of major neurocognitive disorder, vascular Alzheimer with delusion, depression with behavioral disorder, anxiety disorder and unspecified impulse control disorder. She was recently admitted to [facility], specifically on 08/20/2019 with mechanical fall. At that time, she was found to have urinary tract infection, hyponatremia and knee injury. While there, she became extremely delirious and was seen actually by the psychiatrist and was treated for urinary tract infection. Her sodium was extremely low at 123 and she has mildly elevated troponin, for which she was seen by the conveyor belt repairer and was transferred to [facility] for inpatient psychiatric stabilization. PAST MEDICAL HISTORY: Significant for osteoarthritis, hypertension, hyperlipidemia, hypothyroidism and gastroesophageal reflux disease. PAST SURGICAL HISTORY: Significant for cholecystectomy and open reduction and internal fixation with nailing. ALLERGIES: SHE IS ALLERGIC TO PENICILLIN. FAMILY HISTORY: Unremarkable. SOCIAL HISTORY: She lives at home. She apparently continues to smoke, but does not drink alcohol or use any recreational drugs. She uses a cane at home. MEDICATIONS: She was on following medications: She is on calcium with vitamin D one tablet once a day, throat lozenges 1 every 2 hours, tamsulosin 0.4 mg at bedtime, buspirone for BuSpar 15 mg twice a day, duloxetine 30 mg once a day, multivitamin with calcium 1 tablet once a day, Senna-S 2 tablets once a day, Protonix 40 mg once a day, cetirizine 10 mg once a day, aspirin 325 mg once a day, levothyroxine 88 mcg once a day, montelukast 10 mg at bedtime, metoprolol 50 mg twice a day, lactobacillus rhamnosus 1 capsule twice a day, diclofenac sodium 1 gram applied topically, Ambien 5 mg at bedtime, hydrocodone/APAP 10/325 one tablet every 6 hours, milk of magnesia 30 mL p.o. daily p.r.n. for constipation, Mylanta 15 mL after meals and as needed, acetaminophen 650 mg every 4 hours. REVIEW OF SYSTEMS: She did complain of cough with mostly dry. Denied any chest pain, shortness of breath, orthopnea or paroxysmal nocturnal dyspnea. PHYSICAL EXAMINATION: GENERAL: When I examined her, she was resting slightly propped up in bed, in no apparent respiratory distress, slightly pale, but no jaundice, cyanosis or thyromegaly. No jugular venous distention. No lower limb edema. VITAL SIGNS: Her heart rate was 68, blood pressure was 136/70, temperature was 97.2, respiratory rate was ____ and oxygen saturation was 97%. HEAD, EYES, EARS, NOSE AND THROAT: Showed normocephalic, atraumatic. NECK: Supple. CARDIAC: Normal first and second heart sounds. No gallop or murmur. CHEST: Clear to auscultation. No crepitation or rhonchi. ABDOMEN: Distended, soft, nontender. NEUROLOGIC: She is demented, but without any obvious lateralizing sign. All her cranial nerves are intact. EXTREMITIES: She moves extremities without difficulty. She does have wounds on her right heel, covered with dressing. She is mostly bedbound, wheelchair bound. LABORATORY DATA: Her most recent lab work showed a white cell count of 6000, hemoglobin 10, hematocrit 30, MCV 76 and platelet count 456,000. Her chemistry showed a serum sodium 131, potassium 3.8, chloride 95, bicarbonate 28, anion gap of 8, BUN 17, creatinine 0.9, estimated GFR was 60 mL per minute. Her glucose 103, calcium was 8.3. Total bilirubin, AST, ALT, alkaline phosphatase were normal. Total protein 6.4, albumin 3. Her TSH 3.983; however, total T4 and total T3 were normal. ASSESSMENT: In summary, this is an 83-year-old female patient who was transferred from [facility] on account of being positive for COVID-19. She does complain of cough that is mostly dry; however, she is afebrile. We have not had any lab work done today. Her other medical problems include generalized osteoarthritis, hypertension, hyperlipidemia, hypothyroidism, gastroesophageal reflux disease. She does also have pressure ulcer on her right heel, covered with dressing. PLAN: My plan is to send all her lab works and we will also arrange for her to have a chest x-ray and continue meanwhile with all her other medications and monitor her closely. She also should continue on droplet precaution. JESSICA JOHNSON MD DR: ALEK/silvestre JOB#: [id number] / [id number]
[2019-09-07] MEDS: METOPROLOL TART IMMED RELEASE 50 MG TABLET PO SCH (20:16)
[2019-09-07] MEDS: LACTOBACILLUS RHAMNOSUS GG 1 CAPSULE. PO SCH (20:17)
[2019-09-07] MEDS: MONTELUKAST 10 MG TABLET. PO SCH (20:17)
[2019-09-07] MEDS: CALCIUM CARB/VIT D3 500/200 TABLET PO SCH (20:17)
[2019-09-07] MEDS: TAMSULOSIN 0.4 MG CAP.ER.24H. PO SCH (20:17)
[2019-09-07] MEDS: ZOLPIDEM 5 MG TABLET. PO PRN (20:17)
[2019-09-07] MEDS: busPIRone 15 MG TABLET. PO SCH (20:17)
[2019-09-07] MEDS: DICLOFENAC SODIUM 1% TOPICAL GEL 100GM TUBE. TP SCH (20:18)
[2019-09-07 20:21] LABS: HEMATOCRIT 27.1 % (36.0-47.0); HEMOGLOBIN 9.3 g/dL (12.0-15.5); RED BLOOD COUNT 3.62 x10^6/uL (3.50-5.40); RED CELL DISTRIBUTION WIDTH 15.4 % (11.5-14.5); WHITE BLOOD COUNT 6.7 x10^3/uL (4.0-11.0)
[2019-09-07 20:26] VITALS: BP 121/51
[2019-09-07 20:34] LABS: CREATININE 0.9 mg/dL (0.6-1.0); GFR 59.5; POTASSIUM 3.8 mmol/L (3.5-5.1)
[2019-09-07 20:40] LABS: ALBUMIN 2.6 g/dL (3.4-5.0); ALBUMIN/GLOBULIN RATIO 0.9 (1.0-1.7); TOTAL BILIRUBIN 0.4 mg/dL (0.2-1.0); TOTAL PROTEIN 5.4 g/dL (6.4-8.2)
--- NOTE | 2019-09-07 20:51 | RAD ---
Exam: Chest one INDICATION: Cough with shortness of breath TECHNIQUE: Frontal view of the chest Comparisons: 08/28/2019 FINDINGS: Heart is enlarged. Pulmonary vessels are within normal limits. The lung and pleural spaces are clear. IMPRESSION: Cardiomegaly without acute pulmonary process identified. Electronically signed by: Odalys Abdalla MD (09/07/2019 8:48 PM) [id number]
[2019-09-07 22:18] VITALS: BP 131/51
[2019-09-08] MEDS: LEVOTHYROXINE 88 MCG TABLET PO SCH (05:31)
[2019-09-08 05:47] VITALS: BP 122/70
[2019-09-08] MEDS: DULoxetine HCL 30 MG CAPSULE.DR PO SCH (08:08)
[2019-09-08] MEDS: PANTOPRAZOLE 40 MG TABLET. PO SCH (08:08)
[2019-09-08] MEDS: METOPROLOL TART IMMED RELEASE 50 MG TABLET PO SCH ×3 (08:09→22:44)
[2019-09-08] MEDS: busPIRone 15 MG TABLET. PO SCH ×2 (08:09→21:00)
[2019-09-08] MEDS: LACTOBACILLUS RHAMNOSUS GG 1 CAPSULE. PO SCH ×2 (08:09→22:44)
[2019-09-08] MEDS: SENNOSIDES/DOCUSATE 8.6/50MG TABLET. PO SCH (08:09)
[2019-09-08] MEDS: CETIRIZINE HCL 10 MG TABLET PO SCH (08:09)
[2019-09-08] MEDS: MULTIVITAMIN with MINERAL TABLET. PO SCH (08:09)
[2019-09-08] MEDS: DICLOFENAC SODIUM 1% TOPICAL GEL 100GM TUBE. TP SCH ×2 (08:10→21:00)
[2019-09-08] MEDS: ASPIRIN ENTERIC COATED 325 MG TABLET.DR. PO SCH (08:10)
[2019-09-08 10:52] VITALS: BP_SYST 112; BP_SYST 150; BP_DIAS 63; BP_DIAS 71
[2019-09-08] MEDS ORDERED: METO5TAB55 PO (11:01)
[2019-09-08] MEDS: METOCLOPRAMIDE 5 MG TABLET PO SCH ×2 (11:57→16:58)
[2019-09-08] MEDS: ACETAMINOPHEN 325 MG TABLET PO PRN (13:44)
[2019-09-08 15:13] VITALS: BP 134/61
[2019-09-08 19:33] VITALS: BP 109/49
--- NOTE | 2019-09-08 20:38 | PN ---
DATE: SUBJECTIVE: The patient is resting, slightly propped up in bed, no apparent distress. She is awake, alert. On questioning her, she is concerned about swelling of her legs. She has already been advised to elevate her legs when she is in bed. She does have right heel decubitus ulcer. She also was observed to have cough that is mostly dry; however, she has so far showed no evidence of any fever. She denied any shortness of breath. Denied any diarrhea. OBJECTIVE: GENERAL: When I examined her this afternoon, she looked well and was clearly in no apparent respiratory distress, pale, but no jaundice, cyanosis or thyromegaly. No jugular venous distention. Mild bilateral lower limb edema. VITAL SIGNS: Her heart rate was 82, blood pressure was 134/61, temperature 97.3, respiratory rate 20 and oxygen saturation was 95%. The rest of clinical examination is stable. She does have mild bilateral lower limb edema and has right heel decubitus ulcer. Her intake and output were incompletely recorded. LABORATORY DATA: Her lab work this morning showed a white cell count 6700, hemoglobin 9, hematocrit 27, MCV 75 and platelet count 492,000. Her chemistry showed her serum sodium was low at 126, potassium 3.8, chloride 91, bicarbonate 28, anion gap of 7, BUN 15, creatinine 0.9, estimated GFR was 59 mL per minute. Her glucose was 111, calcium was 8. Total bilirubin, AST, ALT, alkaline phosphatase were normal. Total protein was 5.4, albumin was 2.6. She did have a chest x-ray done yesterday, which basically showed that the heart is enlarged. Pulmonary vessels are within normal limits. The lungs and pleural spaces are clear. ASSESSMENT: 1. In summary, this is an 83-year-old female patient who was transferred from [facility] on account of being tested positive for COVID-19. 2. She does complain of cough that is mostly dry; however, she is afebrile, hemodynamically stable. Her white cell count is normal as well as kidney function and liver enzymes. 3. She does have hyponatremia. 4. Hypertension. 5. Hyperlipidemia. 6. Hypothyroidism. 7. Gastroesophageal reflux disease. 8. She does have pressure ulcer on the right heel, covered with dressing. She is not on any diuretics that might explain her hyponatremia. I will order some lab work tomorrow and to go over her medication to see whether one of them can might be the cause of hyponatremia. We will also institute perhaps fluid restriction about 1500 mL in 24 hours. JESSICA JOHNSON MD DR: ALEK/silvestre JOB#: [id number] / [id number]
[2019-09-08] MEDS: CALCIUM CARB/VIT D3 500/200 TABLET PO SCH (22:43)
[2019-09-08] MEDS: MONTELUKAST 10 MG TABLET. PO SCH (22:44)
[2019-09-08] MEDS: TAMSULOSIN 0.4 MG CAP.ER.24H. PO SCH (22:44)
[2019-09-08] MEDS: ENOXAPARIN 40 MG/0.4 ML SYRINGE. SQ SCH (22:45)
[2019-09-08 23:32] VITALS: BP 110/51
[2019-09-09 06:33] VITALS: BP 138/58
[2019-09-09] MEDS: LEVOTHYROXINE 88 MCG TABLET PO SCH (06:38)
[2019-09-09 07:15] LABS: CALCIUM 7.9 mg/dL (8.5-10.1); CREATININE 0.8 mg/dL (0.6-1.0); GFR 68.2; POTASSIUM 3.8 mmol/L (3.5-5.1)
[2019-09-09] MEDS: METOCLOPRAMIDE 5 MG TABLET PO SCH ×3 (08:34→16:47)
[2019-09-09] MEDS: CETIRIZINE HCL 10 MG TABLET PO SCH (08:35)
[2019-09-09] MEDS: DULoxetine HCL 30 MG CAPSULE.DR PO SCH (08:35)
[2019-09-09] MEDS: PANTOPRAZOLE 40 MG TABLET. PO SCH (08:35)
[2019-09-09] MEDS: busPIRone 15 MG TABLET. PO SCH ×2 (08:35→20:58)
[2019-09-09] MEDS: SENNOSIDES/DOCUSATE 8.6/50MG TABLET. PO SCH (08:35)
[2019-09-09] MEDS: MULTIVITAMIN with MINERAL TABLET. PO SCH (08:35)
[2019-09-09] MEDS: LACTOBACILLUS RHAMNOSUS GG 1 CAPSULE. PO SCH ×2 (08:35→21:00)
[2019-09-09] MEDS: ASPIRIN ENTERIC COATED 325 MG TABLET.DR. PO SCH (08:35)
[2019-09-09] MEDS: ENOXAPARIN 40 MG/0.4 ML SYRINGE. SQ SCH ×2 (08:36→20:59)
[2019-09-09] MEDS: DICLOFENAC SODIUM 1% TOPICAL GEL 100GM TUBE. TP SCH ×2 (08:36→20:59)
[2019-09-09] MEDS: METOPROLOL TART IMMED RELEASE 50 MG TABLET PO SCH ×2 (08:36→20:59)
[2019-09-09 10:05] VITALS: BP 123/60
[2019-09-09] MEDS ORDERED: BENZOCAINE/MENTHOL LOZNGE 18'S BOX. PO PRN (14:15)
[2019-09-09] MEDS: BENZOCAINE/MENTHOL LOZNGE 18'S BOX. PO PRN (14:30)
[2019-09-09 15:37] VITALS: BP 113/66
[2019-09-09 19:30] VITALS: BP 113/57
[2019-09-09] MEDS: MONTELUKAST 10 MG TABLET. PO SCH (20:58)
[2019-09-09] MEDS: TAMSULOSIN 0.4 MG CAP.ER.24H. PO SCH (20:58)
[2019-09-09] MEDS: CALCIUM CARB/VIT D3 500/200 TABLET PO SCH (20:59)
[2019-09-09 23:46] VITALS: BP 121/73
--- NOTE | 2019-09-09 23:52 | PN ---
DATE: 09/09/2019 SUBJECTIVE: The patient is resting, slightly propped up in bed, in no apparent distress. She continued to have cough, which is mostly dry. According to her family the cough has been chronic. She is asking for some cough drop, but otherwise she remains hemodynamically stable and afebrile. OBJECTIVE: GENERAL: On examining her, she was pale. No jaundice, cyanosis or thyromegaly. No jugular venous distention or limb edema. VITAL SIGNS: Her heart rate was 90, blood pressure was 123/60, temperature was 97.5, respiratory rate was 16, and oxygen saturation was 98%. HEAD, EYES, EARS, NOSE AND THROAT: Normocephalic, atraumatic. NECK: Supple. CARDIAC: Normal first and second heart sounds. No gallop or murmur. CHEST: Clear to auscultation. No crepitation or rhonchi. ABDOMEN: Distended, soft, nontender. No guarding or rigidity. No organomegaly. All hernial orifices intact. Bowel sounds normal. NEUROLOGIC: She was awake, alert, responding appropriately. All her cranial nerves are intact. She moves her extremities without difficulty, although she is mostly bedbound and chair bound. She has right heel decubitus ulcer covered with dressing. Her intake over the last 24 hours and output were incompletely recorded. LABORATORY DATA: Showed sodium slightly up to 128, potassium 3.8, chloride 93, bicarbonate 30, anion gap of 5, BUN 12, creatinine 0.8, estimated GFR was 68 mL per minute. Her glucose was 95, calcium was 7.9. TSH was slightly high at 6.172. ASSESSMENT: 1. This is an 83-year-old female patient who was transferred from [facility] on account of being tested positive for COVID-19. 2. She does complain of cough, which is mostly dry and according to her family this is a chronic cough. She is afebrile, hemodynamically stable. Her white cell count is normal as well as her kidney function and liver enzymes. 3. She does have hyponatremia, slightly better as her serum sodium has risen from 126 to 128 after implementing fluid restriction. 4. Hypertension. 5. Hyperlipidemia. 6. Hypothyroidism. Her TSH is slightly elevated and I will increase her Synthroid. 7. Gastroesophageal reflux disease. 8. She does have pressure ulcer on the right heel, covered with dressing. PLAN: Continue with fluid restriction. I will increase her Synthroid from 88 to probably 125 mcg and we will repeat her lab works again on Wednesday morning. JESSICA JOHNSON MD DR: ALEK/silvestre JOB#: [id number] / [id number]
[2019-09-10 06:03] VITALS: BP 132/75
[2019-09-10] MEDS: LEVOTHYROXINE 125 MCG TABLET PO SCH (06:21)
[2019-09-10] MEDS: DICLOFENAC SODIUM 1% TOPICAL GEL 100GM TUBE. TP SCH ×2 (09:00→21:00)
[2019-09-10] MEDS: busPIRone 15 MG TABLET. PO SCH ×2 (09:00→21:00)
[2019-09-10] MEDS: LACTOBACILLUS RHAMNOSUS GG 1 CAPSULE. PO SCH ×2 (09:41→21:44)
[2019-09-10] MEDS: METOCLOPRAMIDE 5 MG TABLET PO SCH ×3 (09:41→16:53)
[2019-09-10] MEDS: SENNOSIDES/DOCUSATE 8.6/50MG TABLET. PO SCH (09:41)
[2019-09-10] MEDS: PANTOPRAZOLE 40 MG TABLET. PO SCH (09:41)
[2019-09-10] MEDS: DULoxetine HCL 30 MG CAPSULE.DR PO SCH (09:41)
[2019-09-10] MEDS: CETIRIZINE HCL 10 MG TABLET PO SCH (09:41)
[2019-09-10] MEDS: ASPIRIN ENTERIC COATED 325 MG TABLET.DR. PO SCH (09:41)
[2019-09-10] MEDS: MULTIVITAMIN with MINERAL TABLET. PO SCH (09:41)
[2019-09-10] MEDS: BENZOCAINE/MENTHOL LOZNGE 18'S BOX. PO PRN (09:42)
[2019-09-10] MEDS: ENOXAPARIN 40 MG/0.4 ML SYRINGE. SQ SCH ×2 (09:42→21:45)
[2019-09-10] MEDS: METOPROLOL TART IMMED RELEASE 50 MG TABLET PO SCH ×2 (09:42→21:44)
[2019-09-10 10:55] VITALS: BP 123/58
[2019-09-10 16:11] VITALS: BP 129/69
[2019-09-10 19:44] VITALS: BP 131/56
[2019-09-10] MEDS: TAMSULOSIN 0.4 MG CAP.ER.24H. PO SCH (21:44)
[2019-09-10] MEDS: CALCIUM CARB/VIT D3 500/200 TABLET PO SCH (21:44)
[2019-09-10] MEDS: MONTELUKAST 10 MG TABLET. PO SCH (21:45)
[2019-09-10 23:20] VITALS: BP 125/67
[2019-09-11] MEDS: LEVOTHYROXINE 125 MCG TABLET PO SCH (05:43)
[2019-09-11 05:50] VITALS: BP 141/69
[2019-09-11 06:25] LABS: CREATININE 0.8 mg/dL (0.6-1.0); GFR 68.2; POTASSIUM 3.6 mmol/L (3.5-5.1)
[2019-09-11] MEDS: PANTOPRAZOLE 40 MG TABLET. PO SCH (07:48)
[2019-09-11] MEDS: METOCLOPRAMIDE 5 MG TABLET PO SCH ×3 (07:48→16:31)
[2019-09-11] MEDS: CETIRIZINE HCL 10 MG TABLET PO SCH (08:11)
[2019-09-11] MEDS: LACTOBACILLUS RHAMNOSUS GG 1 CAPSULE. PO SCH ×2 (08:12→21:11)
[2019-09-11] MEDS: SENNOSIDES/DOCUSATE 8.6/50MG TABLET. PO SCH (08:12)
[2019-09-11] MEDS: DULoxetine HCL 30 MG CAPSULE.DR PO SCH (08:12)
[2019-09-11] MEDS: MULTIVITAMIN with MINERAL TABLET. PO SCH (08:12)
[2019-09-11] MEDS: METOPROLOL TART IMMED RELEASE 50 MG TABLET PO SCH ×2 (08:12→21:11)
[2019-09-11] MEDS: ASPIRIN ENTERIC COATED 325 MG TABLET.DR. PO SCH (08:12)
[2019-09-11] MEDS: DICLOFENAC SODIUM 1% TOPICAL GEL 100GM TUBE. TP SCH ×2 (08:13→21:00)
[2019-09-11] MEDS: ENOXAPARIN 40 MG/0.4 ML SYRINGE. SQ SCH ×2 (08:13→21:12)
[2019-09-11] MEDS: busPIRone 15 MG TABLET. PO SCH ×2 (08:13→21:00)
[2019-09-11 10:58] VITALS: BP 129/55
[2019-09-11] MEDS: ACETAMINOPHEN 325 MG TABLET PO PRN ×2 (13:56→21:11)
[2019-09-11 14:15] VITALS: BP 102/54
[2019-09-11 19:31] VITALS: BP 122/89
[2019-09-11] MEDS: CALCIUM CARB/VIT D3 500/200 TABLET PO SCH (21:11)
[2019-09-11] MEDS: MONTELUKAST 10 MG TABLET. PO SCH (21:11)
[2019-09-11] MEDS: TAMSULOSIN 0.4 MG CAP.ER.24H. PO SCH (21:11)
[2019-09-11 22:08] VITALS: BP 118/71
--- NOTE | 2019-09-11 23:49 | PN ---
DATE: 09/11/2019 SUBJECTIVE: The patient is resting, slightly propped up in bed, in no apparent respiratory distress. She is awake, alert, continued to complain of having cough that is mostly dry. According to her family, she has this chronic cough for a long time. However, she remained afebrile, although she had low-grade fever yesterday at 100.1. Her most recent lab work showed normal white cell count and platelets, and her chemistry was unremarkable. Her sodium has improved to 129. PHYSICAL EXAMINATION: GENERAL: When I saw her today, she was pale. No jaundice, cyanosis, or thyromegaly. No jugular venous distension. No limb edema. VITAL SIGNS: Her heart rate was 63, blood pressure was 129/55, temperature was 98.9, respiratory rate was 18 and oxygen saturation was 98%. HEAD, EYES, EARS, NOSE AND THROAT: Showed normocephalic, atraumatic. NECK: Supple. HEART: Normal first and second heart sounds. No gallop, rub or murmur. CHEST: Clear to auscultation. No crepitation or rhonchi. ABDOMEN: Distended, soft, nontender. NEUROLOGIC: She is awake, alert, responding appropriately. All cranial nerves intact. She moves extremities without difficulty, although she is mostly bedbound, chair bound. She has right heel decubitus ulcer covered with dressing. Her intake over the last 24 hours was 1200, no output was recorded. LABORATORY DATA: As of this morning, her serum sodium is up to 129, potassium 3.6, chloride 93, bicarbonate 28, anion gap of 8, BUN 15, creatinine 0.8, estimated GFR was 68 mL per minute. Her glucose 107, calcium was 8. Her white cell count was 6700, hemoglobin 9, hematocrit 27, MCV 75 and platelet count of 492,000. ASSESSMENT: 1. This is an 83-year-old female patient who was transferred from [facility] on account of being positive for COVID-19. 2. She continued to complain of cough that is mostly dry and according to her family, she has chronic cough. She continued to be afebrile, hemodynamically stable. Her white cell count as well as her kidney function, liver enzymes are all within normal range. 3. She does have hyponatremia, slightly better as her serum sodium has risen further to 129 after implementing fluid restriction. 4. Hypertension. 5. Hyperlipidemia. 6. Hypothyroidism. Her TSH slightly elevated and I increased her Synthroid. 7. Gastroesophageal reflux disease. 8. She does have pressure ulcer on her right heel covered with dressing. PLAN: Obviously to continue with fluid restriction. I increased her Synthroid to 125 mcg. We will repeat her labs again tomorrow morning. JESSICA JOHNSON MD DR: ALEK/silvestre JOB#: [id number] / [id number]
[2019-09-12] MEDS: LEVOTHYROXINE 125 MCG TABLET PO SCH (05:26)
[2019-09-12 06:11] VITALS: BP 143/62
[2019-09-12] MEDS: DICLOFENAC SODIUM 1% TOPICAL GEL 100GM TUBE. TP SCH ×2 (09:00→21:06)
[2019-09-12] MEDS: busPIRone 15 MG TABLET. PO SCH ×2 (09:00→21:00)
[2019-09-12] MEDS: DULoxetine HCL 30 MG CAPSULE.DR PO SCH (10:29)
[2019-09-12] MEDS: MULTIVITAMIN with MINERAL TABLET. PO SCH (10:29)
[2019-09-12] MEDS: SENNOSIDES/DOCUSATE 8.6/50MG TABLET. PO SCH (10:29)
[2019-09-12] MEDS: ASPIRIN ENTERIC COATED 325 MG TABLET.DR. PO SCH (10:29)
[2019-09-12] MEDS: PANTOPRAZOLE 40 MG TABLET. PO SCH (10:29)
[2019-09-12] MEDS: LACTOBACILLUS RHAMNOSUS GG 1 CAPSULE. PO SCH ×2 (10:29→21:03)
[2019-09-12] MEDS: CETIRIZINE HCL 10 MG TABLET PO SCH (10:30)
[2019-09-12] MEDS: METOPROLOL TART IMMED RELEASE 50 MG TABLET PO SCH ×2 (10:30→21:04)
[2019-09-12] MEDS: METOCLOPRAMIDE 5 MG TABLET PO SCH ×3 (10:30→16:59)
[2019-09-12] MEDS: ENOXAPARIN 40 MG/0.4 ML SYRINGE. SQ SCH ×2 (10:31→21:11)
[2019-09-12 10:39] VITALS: BP 102/58
[2019-09-12 15:31] VITALS: BP 114/71
[2019-09-12 19:45] VITALS: BP 117/56
[2019-09-12] MEDS: CALCIUM CARB/VIT D3 500/200 TABLET PO SCH (21:03)
[2019-09-12] MEDS: TAMSULOSIN 0.4 MG CAP.ER.24H. PO SCH (21:03)
[2019-09-12] MEDS: MONTELUKAST 10 MG TABLET. PO SCH (21:03)
[2019-09-12] MEDS: HYDROcodone/APAP 10/325 1 TAB TABLET PO PRN (21:04)
[2019-09-12 22:26] VITALS: BP 117/54
--- NOTE | 2019-09-13 03:43 | PN ---
DATE: 09/12/2019 SUBJECTIVE: The patient is resting, slightly propped up in bed, resting comfortably, in no apparent distress. On questioning her, she denied any complaint. The nursing staff stated she continued to have mild dry cough that is apparently chronic; however, she remained afebrile, hemodynamically stable. OBJECTIVE: GENERAL: On examining her, she was pale. No jaundice, cyanosis or thyromegaly. No jugular venous distention. No limb edema. VITAL SIGNS: Her heart rate was 77, blood pressure was 102/58, temperature 97.4, respiratory rate was 20 and oxygen saturation was 98%. The rest of clinical exam is stable. The patient has right heel pressure ulcer covered with dressing. LABORATORY DATA: As of yesterday showed a serum sodium 129, potassium 3.6, chloride 93, bicarbonate 28, anion gap of 8, BUN 15, creatinine 0.8, estimated GFR was 68 mL per minute. Her glucose 107, calcium was 8. Her white cell count was 6700 and with normal platelet count. ASSESSMENT: 1. This is an 83-year-old female patient who was again transferred from [facility] on account of being positive for COVID-19. 2. She continued to complain of cough that is mostly dry and according to her family this is chronic. She continued to be afebrile, hemodynamically stable, normal white cell count. 3. She does have hyponatremia, slightly better after as her serum sodium has risen from 126 to 129 after implementing fluid restriction. 4. Hypertension. 5. Hyperlipidemia. 6. Hypothyroidism. Her TSH was slightly elevated and I did increase her Synthroid. 7. Gastroesophageal reflux disease. 8. She does have pressure ulcer on her right heel covered with dressing. PLAN: To obviously continue with fluid restriction. Continue with Synthroid at 125. Continue with all her other medications. I believe she will also be swabbed again tomorrow for COVID. JESSICA JOHNSON MD DR: ALEK/silvestre JOB#: [id number] / [id number]
[2019-09-13] MEDS: LEVOTHYROXINE 125 MCG TABLET PO SCH (05:03)
[2019-09-13 06:16] VITALS: BP 107/57
[2019-09-13] MEDS: LACTOBACILLUS RHAMNOSUS GG 1 CAPSULE. PO SCH ×2 (08:12→21:13)
[2019-09-13] MEDS: SENNOSIDES/DOCUSATE 8.6/50MG TABLET. PO SCH (08:12)
[2019-09-13] MEDS: CETIRIZINE HCL 10 MG TABLET PO SCH (08:12)
[2019-09-13] MEDS: METOCLOPRAMIDE 5 MG TABLET PO SCH ×3 (08:12→15:55)
[2019-09-13] MEDS: ASPIRIN ENTERIC COATED 325 MG TABLET.DR. PO SCH (08:12)
[2019-09-13] MEDS: DULoxetine HCL 30 MG CAPSULE.DR PO SCH (08:13)
[2019-09-13] MEDS: busPIRone 15 MG TABLET. PO SCH ×2 (08:13→21:00)
[2019-09-13] MEDS: MULTIVITAMIN with MINERAL TABLET. PO SCH (08:13)
[2019-09-13] MEDS: METOPROLOL TART IMMED RELEASE 50 MG TABLET PO SCH ×3 (08:13→21:12)
[2019-09-13] MEDS: HYDROcodone/APAP 10/325 1 TAB TABLET PO PRN ×2 (08:13→21:13)
[2019-09-13] MEDS: PANTOPRAZOLE 40 MG TABLET. PO SCH (08:13)
[2019-09-13] MEDS: ENOXAPARIN 40 MG/0.4 ML SYRINGE. SQ SCH ×2 (08:15→21:12)
[2019-09-13] MEDS: DICLOFENAC SODIUM 1% TOPICAL GEL 100GM TUBE. TP SCH ×2 (08:16→21:00)
[2019-09-13 10:18] VITALS: BP 101/52
--- NOTE | 2019-09-13 14:11 | PN ---
DATE: 09/13/2019 ATTENDING PHYSICIAN: Dr. Morales. SUBJECTIVE: The patient is comfortable. She is in her wheelchair, eating independently. She is confused. She has a mild dry cough that is chronic. Otherwise, she is afebrile. There is no distress. OBJECTIVE FINDINGS: VITAL SIGNS: Her blood pressure today is 101/52 mmHg, temperature 97.1 degrees Fahrenheit, pulse 77 and regular, oxygen saturation 96% on room air. HEENT: Head is without trauma. Pupils are reactive. Sclerae is nonicteric. Oropharynx remains clear. NECK: Supple, no bruits identified. LUNGS: Good breath sounds. CARDIOVASCULAR: Showed distant heart tones. No gallops. Peripheral pulses are palpable and full. ABDOMEN: Soft, scaphoid, nontender, no organomegaly. Bowel sounds are hypoactive. EXTREMITIES: Showed no cyanosis or edema. SKIN: Warm and dry. NEUROLOGIC: Focally intact. Speech is fluent. LABORATORY DATA: Laboratory studies were reviewed. ASSESSMENT: 1. An 83-year-old female transferred from the [facility] for positive COVID-19 swab. 2. Dry nonproductive cough, which is chronic. 3. Mild hyponatremia. 4. Essential hypertension. 5. Hyperlipidemia. 6. Hypothyroidism, on Synthroid. 7. Gastroesophageal reflux disease. 8. Pressure ulcers of the thigh. PLAN: 1. Meds reviewed. 2. Diet as tolerated. 3. She would be re-swabbed again today for COVID-19. 4. Placement. TONY DOMINGO MD DR: ROOPA/silvestre JOB#: [id number] / [id number]
[2019-09-13 14:30] VITALS: BP 97/51
--- NOTE | 2019-09-13 16:35 | PDOC2 ---
CONSULT Date of Admission DATE: 09/13/19 TIME: 16:16 Reason for Consult: Right heel pressure ulcer Referring Physician: Dr Solorzano Chief Complaint Right heel pressure ulcer Problem List Right heel pressure ulcer Closed comedones to lower abdomen History of Present Illness Pt resident at [facility]. Tested positive for COVID when she was screened d/t another pt in close contact tested positive. Pt currently asymptomatic with COVID, admitted for isolation and observation. Prior to a dmission, pt with unstageable pressure wound to her right heel. Pt self-propels with her heels while in her w/c and lies on her back at [facility]. Pt without underlying DM, HgbA1c 5.7 on 08/26 and denies hx of poor wound healing. Cardiovascular: HTN, hyperipidemia GI: GERD Endocrine: Hypothyroidism Past Surgical History: Cholecystectomy Smoke: No ALCOHOL: none Drugs: None Current Medications Current Medications Acetaminophen (Tylenol) 650 mg PRN Q6HRS PRN PO mild pain/temp Last administered on 09/11/19at 21:11; Start 09/07/19 at 15:45 Aspirin (Aspirin Enteric Coated) 325 mg DAILY PO Last administered on 09/13/19at 08:12; Start 09/08/19 at 09:00 Throat Lozenges (Cepacol Sore Throat Lozenge) 1 zelalem PRN Q2HR PRN PO sore throat Last administered on 09/10/19at 09:42; Start 09/07/19 at 15:45 Buspirone HCl (Buspar) 15 mg BID PO Last administered on 09/13/19at 08:13; Start 09/07/19 at 21:00 Cetirizine HCl (ZyrTEC) 10 mg DAILY PO Last administered on 09/13/19at 08:12; Start 09/08/19 at 09:00 Diclofenac Sodium (Voltaren) 1 tyrone BID TP Last administered on 09/12/19at 21:06; Start 09/07/19 at 21:00 Duloxetine HCl (Cymbalta) 30 mg DAILY PO Last administered on 09/13/19at 08:13; Start 09/08/19 at 09:00 Acetaminophen/ Hydrocodone Bitart (Lortab 10/325) 1 tab TID PRN PRN PO MODERATE PAIN 4-6 Last administered on 09/13/19at 08:13; Start 09/07/19 at 15:45 Lactobacillus Rhamnosus (Culturelle) 1 cap BID PO Last administered on 09/13/19at 08:12; Start 09/07/19 at 21:00 Levothyroxine Sodium (Synthroid) 88 mcg DAILY06 PO Last administered on 09/09/19at 06:38; Start 09/08/19 at 06:00; Stop 09/09/19 at 14:07; Status DC Al Hydroxide/Mg Hydroxide (Mylanta Plus Xs) 15 ml PRN AFTMEALHC PRN PO DYSPEPSIA; Start 09/07/19 at 15:45 Metoprolol Tartrate (Lopressor) 50 mg BID PO Last administered on 09/12/19at 21:04; Start 09/07/19 at 21:00 Montelukast Sodium (Singulair) 10 mg HS PO Last administered on 09/12/19at 21:03; Start 09/07/19 at 21:00 Multivitamins/ Calcium (Thera-M Plus) 1 tab DAILY PO Last administered on 09/13/19at 08:13; Start 09/08/19 at 09:00 Pantoprazole Sodium (Protonix) 40 mg DAILYAC PO Last administered on 09/13/19at 08:13; Start 09/07/19 at 07:30 Senna/Docusate Sodium (Senna Plus) 2 tab DAILY PO Last administered on 09/13/19at 08:12; Start 09/08/19 at 09:00 Tamsulosin HCl (Flomax) 0.4 mg QHS PO Last administered on 09/12/19at 21:03; Start 09/07/19 at 21:00 Zolpidem Tartrate (Ambien) 5 mg PRN QHS PRN PO INSOMNIA Last administered on 09/07/19at 20:17; Start 09/07/19 at 15:45 Calcium/Vitamin D (Oscal D 500mg/ 200uts) 1 tab QHS PO Last administered on 09/12/19at 21:03; Start 09/07/19 at 21:00 Magnesium Hydroxide (Milk Of Magnesia) 2,400 mg PRN QHS PRN PO CONSTIPATION; Start 09/07/19 at 16:00 Multi-Ingredient Ointment (Analgesic Ren[place]) 1 tyrone PRN QID PRN TP MUSCLE PAIN; Start 09/07/19 at 16:00 Metoclopramide HCl (Reglan) 5 mg TIDAC PO Last administered on 09/13/19at 15:55; Start 09/08/19 at 11:30 Enoxaparin Sodium (Lovenox 40mg Syringe) 40 mg Q12HR SQ Last administered on at 08:15; Start 09/08/19 at 21:00 Levothyroxine Sodium (Synthroid) 125 mcg DAILY06 PO Last administered on 09/13/19at 05:03; Start 09/10/19 at 06:00 Throat Lozenges (Cepacol Sore Throat Lozenge) 1 zelalem PRN Q2HR PRN PO SORE THROAT; Start 09/09/19 at 14:15; Status UNV Active Scripts Active Reported Reglan (Metoclopramide Hcl) 5 Mg Tablet 1 Tab PO TIDAC 1 hour prior to procedure Milk Of Magnesia (Magnesium Hydroxide) 2,400 Mg/10 Ml Oral.susp 2,400 Mg PO PRN QHS PRN Mylanta Maximum Strength Liq (Mag Hydrox/Aluminum Hyd/Simeth) 355 Ml Oral.susp 15 Ml PO PRN AFTMEALHC PRN Cymbalta (Duloxetine Hcl) 30 Mg Capsule.dr 30 Mg PO DAILY Calcium + Vitamin D Tablet (Calcium Carbonate/Vitamin D3) 1 Each Tablet 1 Each PO HS Cepacol Sore Throat Lozenge (Benzocaine/Menthol) 1 Each Lozenge 1 Lozenge PO PRN Q2HR PRN 3 Days Tylenol (Acetaminophen) 325 Mg Tablet 650 Mg PO PRN Q6HRS PRN Analgesic [place] (Methyl Salicylate/Menthol) 28 Gm Oint...g. 1 [place] TP PRN QID PRN Flomax (Tamsulosin Hcl) 0.4 Mg Cap.er.24h 0.4 Mg PO QHS Thera-M Tablet (Multivits,Ca,Minerals/Iron/Fa) 1 Each Tablet 1 Tab PO DAILY Buspirone Hcl 15 Mg Tablet 15 Mg PO BID Ambien (Zolpidem Tartrate) 5 Mg Tablet 5 Mg PO PRN QHS PRN Senna Plus Tablet (Sennosides/Docusate Sodium) 1 Each Tablet 2 Tab PO DAILY Protonix (Pantoprazole Sodium) 40 Mg Tablet.dr 40 Mg PO DAILY Montelukast Sodium Tablet (Montelukast Sodium) 10 Mg Tablet 10 Mg PO HS Metoprolol Tartrate 50 Mg Tablet 50 Mg PO BID Synthroid (Levothyroxine Sodium) 88 Mcg Tablet 88 Mcg PO DAILY06 Culturelle (Lactobacillus Rhamnosus Gg) 1 Each Cap.sprink 1 Cap PO BID Hydrocodone-Apap 10-325 (Hydrocodone Bit/Acetaminophen) 1 Each Tablet 1 Tab PO TID PRN PRN Voltaren (Diclofenac Sodium) 100 Gm Gel..gram. 1 [place]one TP BID apply to affected area(s) Zyrtec (Cetirizine Hcl) 10 Mg Tablet 10 Mg PO DAILY Aspirin Ec (Aspirin) 325 Mg Tablet.dr 1 Tab PO DAILY Allergies: Coded Allergies: Penicillins (Verified Allergy, Unknown, 08/26/19) General: YES: Appetite (Pt states she has been eating and drinking well); No: Chills, Fatigue PSYCHOLOGICAL ROS: YES: Anxiety, Depression, Irritablity HEENT: No: Heacaches, Nasal congestion, Nasal discharge ALLERGY AND IMMUNOLOGY: No: Nasal Congestion Respiratory: No: Cough, Shortness of breath, SOB with excertion Cardiovascular: No: Chest Pain Gastrointestinal: No: Nausea, Vomiting, Diarrhea, Constipation Neurological: No: Headaches Skin: YES: Skin Lesion Changes (Right heel wound and sores on lower abdomen. Pt denies painful symptoms of both areas. ) General: Alert, Oriented X3, Cooperative, No acute distress Lungs: Clear to auscultation, Normal air movement Abdomen: Normal bowel sounds, Soft, No tenderness Extremities: Other (1+ pitting edema of RLE) Skin: No significant lesion (Right heel with 3x3.5cm wound. Wound bed 100% soft eschar with edges beginning to seperate. Moderate serosanguineous drainage present. No odor following cleansing. Following application of topical lidocaine and consent per DPOA, wound debrided using sterile currette. Pt denied painful symptoms. Minimal bleeding controlled with pressure. Following debridement wound meausres 3.2x3.8x0.3cm. Wound bed 20% slough/eschar centrally, 80% granulation. Pt with closed comedones to lower abdomen. Hyperpigmented scarring surrounding areas. No active drainage. ) Psych/Mental Status: Mental status NL, Mood NL VITALS Vital Signs Date Time Temp Pulse Resp B/P (MAP) Pulse Ox O2 Delivery O2 Flow Rate FiO2 09/13/19 14:30 96.8 75 97/51 (66) 95 Room Air 09/13/19 10:18 18 Assessment/Plan 1) Unstageable right heel pressure ulcer - Debrided at bedside, see PE. - Cleanse and pat dry. Apply skin prep to surrounding tissue. Cover with Hydrofera Blue and cover with ABD. Change every other day or prn if dressing loose or saturated - Recommend w/c foot rests so pt does not self-propel with heels - Prafo boot to be worn at all times to aide with offloading. - Pt on APM - Dietary consulting to ensure pt with adequate protein intake for optimal wound healing. 2) Closed comedones to lower abdoemn vs other etiology - Unable to express with gentle palpation - LOTA. skin prep as needed and monitor. ALEC DOMINGO GUI DEVELOPER Sep 13, 2019 16:35
[2019-09-13 19:41] VITALS: BP 113/55
[2019-09-13] MEDS: CALCIUM CARB/VIT D3 500/200 TABLET PO SCH (21:12)
[2019-09-13] MEDS: MONTELUKAST 10 MG TABLET. PO SCH (21:12)
[2019-09-13] MEDS: TAMSULOSIN 0.4 MG CAP.ER.24H. PO SCH (21:13)
[2019-09-13 22:20] VITALS: BP 110/58
[2019-09-14] MEDS: LEVOTHYROXINE 125 MCG TABLET PO SCH (05:45)
[2019-09-14 05:49] VITALS: BP 120/63
[2019-09-14] MEDS: SENNOSIDES/DOCUSATE 8.6/50MG TABLET. PO SCH (08:35)
[2019-09-14] MEDS: DULoxetine HCL 30 MG CAPSULE.DR PO SCH (08:35)
[2019-09-14] MEDS: PANTOPRAZOLE 40 MG TABLET. PO SCH (08:35)
[2019-09-14] MEDS: ASPIRIN ENTERIC COATED 325 MG TABLET.DR. PO SCH (08:35)
[2019-09-14] MEDS: MULTIVITAMIN with MINERAL TABLET. PO SCH (08:35)
[2019-09-14] MEDS: METOCLOPRAMIDE 5 MG TABLET PO SCH ×3 (08:35→18:17)
[2019-09-14] MEDS: CETIRIZINE HCL 10 MG TABLET PO SCH (08:35)
[2019-09-14] MEDS: LACTOBACILLUS RHAMNOSUS GG 1 CAPSULE. PO SCH ×2 (08:35→19:58)
[2019-09-14] MEDS: METOPROLOL TART IMMED RELEASE 50 MG TABLET PO SCH ×2 (08:36→19:59)
[2019-09-14] MEDS: busPIRone 15 MG TABLET. PO SCH ×2 (08:36→19:58)
[2019-09-14] MEDS: ENOXAPARIN 40 MG/0.4 ML SYRINGE. SQ SCH ×2 (08:39→19:58)
[2019-09-14] MEDS: DICLOFENAC SODIUM 1% TOPICAL GEL 100GM TUBE. TP SCH ×2 (09:00→18:06)
[2019-09-14] MEDS: HYDROcodone/APAP 10/325 1 TAB TABLET PO PRN ×2 (10:57→19:59)
[2019-09-14 11:05] VITALS: BP 117/58
[2019-09-14 16:57] VITALS: BP 107/63
[2019-09-14 19:34] VITALS: BP 102/57
[2019-09-14] MEDS: TAMSULOSIN 0.4 MG CAP.ER.24H. PO SCH (19:59)
[2019-09-14] MEDS: MONTELUKAST 10 MG TABLET. PO SCH (20:00)
--- NOTE | 2019-09-14 20:57 | PN ---
DATE: 09/14/2019 ATTENDING PHYSICIAN: Dr. Morales. SUBJECTIVE: Today is the patient's 84th birthday. She is fairly comfortable, sitting in a chair. She is eating independently. She has no concept as to why she is here. The cough is improved. She is in no obvious respiratory distress. OBJECTIVE FINDINGS: VITAL SIGNS: Blood pressure today is 117/58 mmHg, pulse 63 and regular, temperature 97.5 degrees Fahrenheit, oxygen saturation 98% on room air. HEENT: Head is without trauma. Pupils are reactive. Sclerae nonicteric. Oropharynx clear. NECK: Supple, no bruits identified. LUNGS: Otherwise clear. CARDIOVASCULAR: Showed regular heart tones. No gallops. ABDOMEN: Soft, scaphoid, nontender. EXTREMITIES: Showed no cyanosis or edema. NEUROLOGIC: Focally intact. Speech is fluent. SKIN: Warm and dry. ASSESSMENT: 1. An 84-year-old today, female transferred from the [facility] for positive coronavirus disease 2019 swab. 2. Dry cough, which is chronic. 3. Hyponatremia, resolved. 4. Hypertension, normotensive. 5. Hyperglycemia. 6. Hypothyroidism, on Synthroid. 7. Gastroesophageal reflux disease. 8. Pressure ulcers of the thighs, stable. PLAN: 1. Meds reviewed. 2. Diet as tolerated. 3. She was re-swabbed yesterday, awaiting results of most current coronavirus disease 2019 swab. 4. Placement. TONY DOMINGO MD DR: ROOPA/silvestre JOB#: [id number] / [id number]
[2019-09-14] MEDS: CALCIUM CARB/VIT D3 500/200 TABLET PO SCH (21:00)
[2019-09-14] MEDS: ZOLPIDEM 5 MG TABLET. PO PRN (21:03)
[2019-09-14 23:11] VITALS: BP 104/57
[2019-09-15] MEDS: LEVOTHYROXINE 125 MCG TABLET PO SCH (05:24)
[2019-09-15 05:39] VITALS: BP 114/55
[2019-09-15] MEDS: LACTOBACILLUS RHAMNOSUS GG 1 CAPSULE. PO SCH ×2 (08:13→20:17)
[2019-09-15] MEDS: ENOXAPARIN 40 MG/0.4 ML SYRINGE. SQ SCH ×2 (08:13→20:18)
[2019-09-15] MEDS: busPIRone 15 MG TABLET. PO SCH ×2 (08:17→20:16)
[2019-09-15] MEDS: SENNOSIDES/DOCUSATE 8.6/50MG TABLET. PO SCH (08:17)
[2019-09-15] MEDS: CETIRIZINE HCL 10 MG TABLET PO SCH (08:17)
[2019-09-15] MEDS: DULoxetine HCL 30 MG CAPSULE.DR PO SCH (08:17)
[2019-09-15] MEDS: MULTIVITAMIN with MINERAL TABLET. PO SCH (08:17)
[2019-09-15] MEDS: METOPROLOL TART IMMED RELEASE 50 MG TABLET PO SCH ×2 (08:19→20:17)
[2019-09-15] MEDS: ASPIRIN ENTERIC COATED 325 MG TABLET.DR. PO SCH (08:19)
[2019-09-15] MEDS: METOCLOPRAMIDE 5 MG TABLET PO SCH ×3 (08:19→17:02)
[2019-09-15] MEDS: PANTOPRAZOLE 40 MG TABLET. PO SCH (08:20)
[2019-09-15] MEDS: DICLOFENAC SODIUM 1% TOPICAL GEL 100GM TUBE. TP SCH ×2 (08:20→20:18)
[2019-09-15 10:39] VITALS: BP 111/59
[2019-09-15] MEDS: HYDROcodone/APAP 10/325 1 TAB TABLET PO PRN (12:05)
--- NOTE | 2019-09-15 13:28 | PN ---
DATE: 09/15/2019 ATTENDING PHYSICIAN: Dr. Morales and Dr. Domingo. SUBJECTIVE: The patient is in a better mood today. She had her birthday yesterday. She is comfortable, afebrile. No relative complaints. OBJECTIVE FINDINGS: VITAL SIGNS: The patient is afebrile, blood pressure is 111/59, pulse 63 and regular, temperature 98.1 degrees Fahrenheit. Room air saturation 97%. HEENT: Head is without trauma. Pupils are reactive. Sclerae nonicteric. Oropharynx clear. NECK: Supple. LUNGS: Clear. CARDIOVASCULAR: Showed regular heart tones. No gallops, no murmurs. ABDOMEN: Soft, scaphoid, nontender, no organomegaly. EXTREMITIES: Showed no cyanosis or edema. NEUROLOGIC: Focally intact. Speech is fluent. Clinical Specialty Rep intact. SKIN: Warm and dry. ASSESSMENT: 1. An 84-year-old female transferred from the [facility] for positive coronavirus swab. 2. Chronic dry cough, asymptomatic. 3. Hyponatremia, resolved. 4. Essential hypertension, currently normotensive. 5. Hyperglycemia. 6. Hypothyroidism, on replacement. 7. Gastroesophageal reflux disease. 8. Pressure ulcer left thigh, managed. PLAN: 1. Meds reviewed. 2. Diet as tolerated. 3. Awaiting results of the coronavirus repeat swab. 4. Eventual placement. TONY DOMINGO MD DR: ROOPA/silvestre JOB#: [id number] / [id number]
[2019-09-15 14:58] VITALS: BP 132/60
[2019-09-15 19:00] VITALS: BP 112/54
[2019-09-15] MEDS: MONTELUKAST 10 MG TABLET. PO SCH (20:17)
[2019-09-15] MEDS: TAMSULOSIN 0.4 MG CAP.ER.24H. PO SCH (20:17)
[2019-09-15] MEDS: ZOLPIDEM 5 MG TABLET. PO PRN (20:17)
[2019-09-15] MEDS: CALCIUM CARB/VIT D3 500/200 TABLET PO SCH (20:17)
[2019-09-15 22:21] VITALS: BP 114/61
[2019-09-16 05:35] VITALS: BP 123/52
[2019-09-16] MEDS: LEVOTHYROXINE 125 MCG TABLET PO SCH (05:55)
[2019-09-16] MEDS: busPIRone 15 MG TABLET. PO SCH ×2 (08:24→20:03)
[2019-09-16] MEDS: SENNOSIDES/DOCUSATE 8.6/50MG TABLET. PO SCH (08:25)
[2019-09-16] MEDS: DICLOFENAC SODIUM 1% TOPICAL GEL 100GM TUBE. TP SCH ×2 (08:25→20:04)
[2019-09-16] MEDS: DULoxetine HCL 30 MG CAPSULE.DR PO SCH (08:25)
[2019-09-16] MEDS: ENOXAPARIN 40 MG/0.4 ML SYRINGE. SQ SCH ×2 (08:25→20:04)
[2019-09-16] MEDS: PANTOPRAZOLE 40 MG TABLET. PO SCH (08:25)
[2019-09-16] MEDS: MULTIVITAMIN with MINERAL TABLET. PO SCH (08:25)
[2019-09-16] MEDS: CETIRIZINE HCL 10 MG TABLET PO SCH (08:25)
[2019-09-16] MEDS: METOCLOPRAMIDE 5 MG TABLET PO SCH ×3 (08:25→16:30)
[2019-09-16] MEDS: METOPROLOL TART IMMED RELEASE 50 MG TABLET PO SCH ×2 (08:25→20:03)
[2019-09-16] MEDS: ASPIRIN ENTERIC COATED 325 MG TABLET.DR. PO SCH (08:25)
[2019-09-16] MEDS: LACTOBACILLUS RHAMNOSUS GG 1 CAPSULE. PO SCH ×2 (08:25→20:02)
[2019-09-16 10:36] VITALS: BP 113/58
[2019-09-16] MEDS: HYDROcodone/APAP 10/325 1 TAB TABLET PO PRN ×2 (11:05→22:04)
[2019-09-16 16:09] VITALS: BP 138/68
[2019-09-16 19:30] VITALS: BP 138/76
[2019-09-16] MEDS: MONTELUKAST 10 MG TABLET. PO SCH (20:02)
[2019-09-16] MEDS: CALCIUM CARB/VIT D3 500/200 TABLET PO SCH (20:03)
[2019-09-16] MEDS: ZOLPIDEM 5 MG TABLET. PO PRN (20:03)
[2019-09-16] MEDS: TAMSULOSIN 0.4 MG CAP.ER.24H. PO SCH (20:04)
[2019-09-16 22:42] VITALS: BP 144/63
[2019-09-17] MEDS: LEVOTHYROXINE 125 MCG TABLET PO SCH (05:04)
[2019-09-17 05:31] VITALS: BP 121/53
[2019-09-17] MEDS: DULoxetine HCL 30 MG CAPSULE.DR PO SCH (08:26)
[2019-09-17] MEDS: busPIRone 15 MG TABLET. PO SCH ×2 (08:26→20:12)
[2019-09-17] MEDS: MULTIVITAMIN with MINERAL TABLET. PO SCH (08:26)
[2019-09-17] MEDS: METOPROLOL TART IMMED RELEASE 50 MG TABLET PO SCH ×2 (08:26→20:12)
[2019-09-17] MEDS: LACTOBACILLUS RHAMNOSUS GG 1 CAPSULE. PO SCH ×2 (08:26→20:12)
[2019-09-17] MEDS: CETIRIZINE HCL 10 MG TABLET PO SCH (08:27)
[2019-09-17] MEDS: METOCLOPRAMIDE 5 MG TABLET PO SCH ×3 (08:27→16:37)
[2019-09-17] MEDS: SENNOSIDES/DOCUSATE 8.6/50MG TABLET. PO SCH (08:27)
[2019-09-17] MEDS: ASPIRIN ENTERIC COATED 325 MG TABLET.DR. PO SCH (08:27)
[2019-09-17] MEDS: DICLOFENAC SODIUM 1% TOPICAL GEL 100GM TUBE. TP SCH ×2 (08:27→21:00)
[2019-09-17] MEDS: PANTOPRAZOLE 40 MG TABLET. PO SCH (08:27)
[2019-09-17] MEDS: ENOXAPARIN 40 MG/0.4 ML SYRINGE. SQ SCH ×2 (08:28→20:14)
--- NOTE | 2019-09-17 10:05 | PN ---
DATE: 09/16/2019 ATTENDING PHYSICIANS: Dr. Morales and Dr. Sanches. SUBJECTIVE: No new complaints. The patient is pleasant. She is comfortable. She is somewhat bored. OBJECTIVE FINDINGS: VITAL SIGNS: Blood pressure today is 113/58 mmHg, oxygen saturation 97% on room air, temperature 97.7 degrees Fahrenheit and pulse 66 and regular. HEENT: Head is without trauma. Pupils are reactive. Sclerae nonicteric. Oropharynx is clear. NECK: Supple, no bruits identified. LUNGS: Otherwise clear. CARDIOVASCULAR: Showed regular heart tones. No murmurs or gallops. ABDOMEN: Soft, scaphoid, nontender. No liver or spleen enlargement. Bowel sounds are hypoactive. EXTREMITIES: Shows some dermatitis of the right hedrick. No cyanosis. No edema. NEUROLOGIC: Focally intact. Speech is fluent. SKIN: Warm and dry. ASSESSMENT: 1. An 84-year-old female transferred here from the [facility] for COVID-19 coronavirus swab. 2. Hyponatremia, resolved. 3. Essential hypertension. 4. Hyperglycemia, stable. 5. Hypothyroidism, on replacement. 6. Gastroesophageal reflux disease. 7. Pressure ulcer, left leg, managed. PLAN: 1. Meds reviewed. 2. Diet as tolerated. 3. Awaiting results of repeat coronavirus swab. 4. Eventual placement. TONY SANCHES MD DR: ROOPA/silvestre JOB#: [id number] / [id number]
[2019-09-17 11:00] VITALS: BP 107/61
--- NOTE | 2019-09-17 11:25 | PN ---
DATE: 09/17/2019 ATTENDING PHYSICIAN: Dr. Morales. SUBJECTIVE: No new complaints. The patient is comfortable. She is a little bit bored. She has no new complaints. OBJECTIVE FINDINGS: VITAL SIGNS: The patient is afebrile, blood pressure is 121/53 mmHg, temperature 98.3 degrees Fahrenheit, pulse regular and oxygen saturation 94% on room air. HEENT: Head is without trauma. Pupils are reactive. Sclerae nonicteric. Oropharynx clear. NECK: Supple, no bruits. LUNGS: Good breath sounds. CARDIOVASCULAR: Showed regular heart tones. No gallops or murmurs. ABDOMEN: Soft, scaphoid, nontender. Bowel sounds are normoactive. EXTREMITIES: Showed dermatitis of the right hedrick. No edema. NEUROLOGIC: Focally intact. Speech is fluent. No deficit. SKIN: Warm and dry. ASSESSMENT: 1. An 84-year-old female transferred from the [facility] for COVID-19 coronavirus swab that was positive. 2. The patient remains totally asymptomatic. 3. Hyponatremia, resolved. 4. Essential hypertension, currently normotensive. 5. Hypothyroidism, on replacement. 6. Gastroesophageal reflux disease. 7. Pressure ulcer, left leg, managed. PLAN: 1. Continue meds as ordered. 2. Diet as tolerated. 3. Await results of repeat coronavirus swab. TONY DOMINGO MD DR: ROOPA/silvestre JOB#: [id number] / [id number]
[2019-09-17] MEDS: HYDROcodone/APAP 10/325 1 TAB TABLET PO PRN ×2 (11:34→20:13)
[2019-09-17 15:25] VITALS: BP 132/63
[2019-09-17 19:24] VITALS: BP 108/69
[2019-09-17] MEDS: MONTELUKAST 10 MG TABLET. PO SCH (20:12)
[2019-09-17] MEDS: CALCIUM CARB/VIT D3 500/200 TABLET PO SCH (20:12)
[2019-09-17] MEDS: TAMSULOSIN 0.4 MG CAP.ER.24H. PO SCH (20:12)
[2019-09-17 22:41] VITALS: BP 108/52
[2019-09-18] MEDS: LEVOTHYROXINE 125 MCG TABLET PO SCH (05:29)
[2019-09-18 05:39] VITALS: BP 120/75
[2019-09-18] MEDS: MULTIVITAMIN with MINERAL TABLET. PO SCH (07:46)
[2019-09-18] MEDS: ACETAMINOPHEN 325 MG TABLET PO PRN (07:46)
[2019-09-18] MEDS: CETIRIZINE HCL 10 MG TABLET PO SCH (07:46)
[2019-09-18] MEDS: LACTOBACILLUS RHAMNOSUS GG 1 CAPSULE. PO SCH ×2 (07:46→20:23)
[2019-09-18] MEDS: METOCLOPRAMIDE 5 MG TABLET PO SCH ×3 (07:46→17:28)
[2019-09-18] MEDS: SENNOSIDES/DOCUSATE 8.6/50MG TABLET. PO SCH (07:46)
[2019-09-18] MEDS: DULoxetine HCL 30 MG CAPSULE.DR PO SCH (07:46)
[2019-09-18] MEDS: ASPIRIN ENTERIC COATED 325 MG TABLET.DR. PO SCH (07:46)
[2019-09-18] MEDS: PANTOPRAZOLE 40 MG TABLET. PO SCH (07:46)
[2019-09-18] MEDS: busPIRone 15 MG TABLET. PO SCH ×2 (07:46→20:23)
[2019-09-18] MEDS: METOPROLOL TART IMMED RELEASE 50 MG TABLET PO SCH ×2 (07:47→20:24)
[2019-09-18] MEDS: DICLOFENAC SODIUM 1% TOPICAL GEL 100GM TUBE. TP SCH ×2 (07:49→20:25)
[2019-09-18] MEDS: ENOXAPARIN 40 MG/0.4 ML SYRINGE. SQ SCH ×2 (07:49→20:25)
[2019-09-18 10:23] VITALS: BP 97/53
--- NOTE | 2019-09-18 12:00 | PN ---
DATE: 09/18/2019 ATTENDING PHYSICIAN: Dr. Morales/Dr. Sacnhes SUBJECTIVE: The patient is doing well. She has no complaints. She is comfortable. She is bored. OBJECTIVE FINDINGS: VITAL SIGNS: Blood pressure today is 120/75, pulse is 78 and regular, temperature 97.9 degrees Fahrenheit, oxygen saturation 96% on room air. HEENT: Head is without trauma. Pupils are reactive. Sclerae nonicteric. Oropharynx is clear. NECK: Supple, no thyromegaly or bruits. LUNGS: Good airway movement. Good breath sounds. CARDIOVASCULAR: Showed regular heart tones. No gallops. ABDOMEN: Soft, scaphoid. Bowel sounds are hypoactive. EXTREMITIES: Shows some dermatitis of the right hedrick. The wound is clean and dry. No edema. NEUROLOGIC: Focally intact. Speech is fluent. SKIN: Warm and dry. ASSESSMENT: 1. An 84-year-old female from the [facility] with positive COVID-19 coronavirus swab. 2. The patient remains totally asymptomatic. 3. Essential hypertension. 4. Hypothyroidism. 5. Gastroesophageal reflux disease. 6. Pressure ulcer, left leg. PLAN: 1. Continue meds as ordered. 2. Diet as tolerated. 3. Recheck swabs when available. 4. Placement. TONY SANCHES MD DR: ROOPA/silvestre JOB#: [id number] / [id number]
[2019-09-18] MEDS: HYDROcodone/APAP 10/325 1 TAB TABLET PO PRN ×2 (14:30→20:24)
[2019-09-18 14:42] VITALS: BP 120/67
--- NOTE | 2019-09-18 16:09 | PDOC ---
SUBJECTIVE: Pt states she is feeling well. Pt denies pain at this time. States she has a good appetite with normal output. Pt denies n/v/d. Pt states she has been sleeping well without mood swings. Pt COVID positive, currently denying symptoms of cough/SOB/nasal c/d. OBJECTIVE: Problems: Pt followed by wound care team for right heel pressure wound. Wound debrided at bedside on 09/12. Pt in Profa boot for offloading and Hydrofera Blue for autolytic debridement. Pt awake and alert, pleasant in conversation. Resp even and unlabored. Pt on RA, not requiring supplemental O2. Abdomen soft, nondistended and nontender to palpation. 4 superficial pustules present to lower abdomen. No induration underlying. Unable to excrete pus with gentle pressure. No surrounding erythema or edema present. Right heel with 3.2x3.7x0.1cm open ulceration. Wound bed 80% thin slough, 20% granulation. Edges attached and not rolling. Surrounding tissue with mild maceration. No edema or erythema present. No odor following cleansing. Vital Signs/I&O: Vital Signs Date Time Temp Pulse Resp B/P (MAP) Pulse Ox O2 Delivery O2 Flow Rate FiO2 09/18/19 14:42 97.1 95 20 120/67 (84) 96 09/18/19 08:20 Room Air I & O 09/17/19 09/17/19 09/18/19 15:00 23:00 07:00 Intake Total 264 ml 240 ml 180 ml Balance 264 ml 240 ml 180 ml ASSESSMENT: 1) Closed comedones to lower abdomen - May LOTA and monitor 2) Unstageable pressure wound to the right heel - Debrided at bedside on 09/13/19 - Continue current wound orders. Cleanse and pat dry. Apply skin prep to surrounding tissue. Cover with Hydrofera Blue and foam adhesive. Change every 3 days or prn. - Pt on APM - Profa boot to be worn at all times for offloading - Dietary consulting to ensure pt with adequate protein intake for optimal wound healing. Justification of Admission: Justification of Admission: Justification of Admission Dx: N/A Comments: COVID 19 positive Unstageable pressure wound to right heel ALEC DOMINGO INFUSION THERAPY NURSE Sep 18, 2019 16:09
[2019-09-18 19:00] VITALS: BP 104/55
[2019-09-18] MEDS: MONTELUKAST 10 MG TABLET. PO SCH (20:23)
[2019-09-18] MEDS: TAMSULOSIN 0.4 MG CAP.ER.24H. PO SCH (20:24)
[2019-09-18] MEDS: ZOLPIDEM 5 MG TABLET. PO PRN (20:24)
[2019-09-18] MEDS: CALCIUM CARB/VIT D3 500/200 TABLET PO SCH (20:24)
[2019-09-18 23:09] VITALS: BP 120/50
[2019-09-19 05:25] VITALS: BP 124/66
[2019-09-19] MEDS: LEVOTHYROXINE 125 MCG TABLET PO SCH (05:41)
[2019-09-19] MEDS: SENNOSIDES/DOCUSATE 8.6/50MG TABLET. PO SCH (08:28)
[2019-09-19] MEDS: PANTOPRAZOLE 40 MG TABLET. PO SCH (08:28)
[2019-09-19] MEDS: DULoxetine HCL 30 MG CAPSULE.DR PO SCH (08:28)
[2019-09-19] MEDS: ASPIRIN ENTERIC COATED 325 MG TABLET.DR. PO SCH (08:28)
[2019-09-19] MEDS: CETIRIZINE HCL 10 MG TABLET PO SCH (08:28)
[2019-09-19] MEDS: busPIRone 15 MG TABLET. PO SCH ×2 (08:28→19:51)
[2019-09-19] MEDS: LACTOBACILLUS RHAMNOSUS GG 1 CAPSULE. PO SCH ×2 (08:28→19:51)
[2019-09-19] MEDS: METOCLOPRAMIDE 5 MG TABLET PO SCH ×3 (08:28→17:10)
[2019-09-19] MEDS: MULTIVITAMIN with MINERAL TABLET. PO SCH (08:28)
[2019-09-19] MEDS: METOPROLOL TART IMMED RELEASE 50 MG TABLET PO SCH ×2 (08:29→19:51)
[2019-09-19] MEDS: ENOXAPARIN 40 MG/0.4 ML SYRINGE. SQ SCH ×2 (08:29→19:51)
[2019-09-19] MEDS: DICLOFENAC SODIUM 1% TOPICAL GEL 100GM TUBE. TP SCH ×2 (09:00→19:52)
[2019-09-19 10:42] VITALS: BP 102/50
--- NOTE | 2019-09-19 10:58 | PN ---
DATE: 09/19/2019 ATTENDING PHYSICIAN: Dr. Morales and Dr. Domingo SUBJECTIVE: No new complaints. She is bored. She denied any fevers, pain or nausea. OBJECTIVE FINDINGS: VITAL SIGNS: Temperature is 97.7 degrees Fahrenheit, blood pressure 124/66, pulse 82 and regular, saturation 93% on room air. HEENT: Head is without trauma. Pupils are reactive. Sclerae nonicteric. Oropharynx clear. NECK: Supple. LUNGS: Entirely clear with good air movement. CARDIOVASCULAR: Showed regular heart tones. No gallops. ABDOMEN: Soft, normoactive bowel sounds. EXTREMITIES: Showed dermatitis of the right leg. The wound is clean. No edema. NEUROLOGIC: Focally intact. Speech is fluent. SKIN: Warm and dry. ASSESSMENT: 1. An 84-year-old female from the [facility] with COVID-19 positive swab. 2. The patient remains asymptomatic. 3. Essential hypertension. 4. Hypothyroidism, on replacement. 5. Gastroesophageal reflux disease. 6. Pressure ulcer of the left leg, treated. PLAN: 1. Antibiotics; continue medicines as ordered. 2. Diet as tolerated. 3. Recheck a swab when available. 4. Eventual placement. TONY DOMINGO MD DR: ROOPA/silvestre JOB#: [id number] / [id number]
[2019-09-19] MEDS: BENZOCAINE/MENTHOL LOZNGE 18'S BOX. PO PRN (12:03)
[2019-09-19 14:58] VITALS: BP 113/66
[2019-09-19 19:11] VITALS: BP 127/50
[2019-09-19] MEDS: ZOLPIDEM 5 MG TABLET. PO PRN (19:51)
[2019-09-19] MEDS: MONTELUKAST 10 MG TABLET. PO SCH (19:51)
[2019-09-19] MEDS: CALCIUM CARB/VIT D3 500/200 TABLET PO SCH (19:51)
[2019-09-19] MEDS: TAMSULOSIN 0.4 MG CAP.ER.24H. PO SCH (19:51)
[2019-09-19] MEDS: HYDROcodone/APAP 10/325 1 TAB TABLET PO PRN ×2 (19:52→21:07)
[2019-09-19 22:57] VITALS: BP 133/60
[2019-09-20] MEDS: LEVOTHYROXINE 125 MCG TABLET PO SCH (05:14)
[2019-09-20 05:52] VITALS: BP 117/64
[2019-09-20] MEDS: LACTOBACILLUS RHAMNOSUS GG 1 CAPSULE. PO SCH ×2 (08:55→19:55)
[2019-09-20] MEDS: buPROPion XL 150 MG TAB.ER.24H PO SCH (08:56)
[2019-09-20] MEDS: ASPIRIN ENTERIC COATED 325 MG TABLET.DR. PO SCH (08:56)
[2019-09-20] MEDS: QUEtiapine 25 MG TABLET. PO SCH (08:56)
[2019-09-20] MEDS: busPIRone 15 MG TABLET. PO SCH ×2 (08:56→19:55)
[2019-09-20] MEDS: CETIRIZINE HCL 10 MG TABLET PO SCH (08:56)
[2019-09-20] MEDS: MULTIVITAMIN with MINERAL TABLET. PO SCH (08:56)
[2019-09-20] MEDS: SENNOSIDES/DOCUSATE 8.6/50MG TABLET. PO SCH (08:56)
[2019-09-20] MEDS: METOPROLOL TART IMMED RELEASE 50 MG TABLET PO SCH ×2 (08:56→19:56)
[2019-09-20] MEDS: PANTOPRAZOLE 40 MG TABLET. PO SCH (08:57)
[2019-09-20] MEDS: ENOXAPARIN 40 MG/0.4 ML SYRINGE. SQ SCH ×2 (08:58→19:57)
[2019-09-20] MEDS: DICLOFENAC SODIUM 1% TOPICAL GEL 100GM TUBE. TP SCH ×2 (09:00→21:00)
[2019-09-20 10:08] VITALS: BP 113/59
--- NOTE | 2019-09-20 19:29 | PN ---
DATE: 09/20/2019 SUBJECTIVE: The patient is sitting in her chair comfortably in no apparent distress. She stated that she has not been able to walk since she came in here, although prior to admission to this hospital, she was able to walk with a walker. She does have a pressure ulcer on the right heel. However, the nursing staff stated that she is noncompliant and uncooperative with care. She is not even willing to take the spoon with medication on her own, it has to be put in her mouth according to him. PHYSICAL EXAMINATION: GENERAL: When I saw her this afternoon, she looked well and was clearly in no apparent respiratory distress. She was somewhat pale, not jaundiced, cyanosed or thyromegaly. No jugular venous distention. No limb edema. VITAL SIGNS: Her heart rate was 83, blood pressure was 113/59, temperature 97.5, respiratory rate was 20, and oxygen saturation was 96%. HEENT: Showed normocephalic, atraumatic. NECK: Supple. HEART: Showed normal first and second heart sounds. No gallop, rub or murmur. CHEST: Clear to auscultation. No crepitation or rhonchi. ABDOMEN: Scaphoid, soft, nontender. No guarding or rigidity. No organomegaly. All hernial orifices intact. Bowel sounds normal. NEUROLOGIC: She is awake, alert, responding appropriately. All cranial nerves are intact. She moves extremities without difficulty, though she is mostly bedbound, chair bound. Her intake over the last 24 hours was 1300, no output was recorded. LABORATORY DATA: Her most recent lab work dates back to 09/06. At that time, her white cell count was 6700, hemoglobin 9, hematocrit 27, MCV 75 and platelet count of 492,000. Her serum sodium was 129, potassium 3.6, chloride 93, bicarbonate 28, anion gap of 8, BUN 15, creatinine 0.8, estimated GFR was 68 mL per minute. Her glucose 107, calcium was 8. Her TSH was slightly elevated at 6.172; however, her morning cortisol was 14 mcg, which is well within normal range. ASSESSMENT: 1. This is an 84-year-old female from [facility] with COVID-19 positive swabs. 2. The patient remained asymptomatic. 3. Essential hypertension. 4. Hypothyroidism, on replacement. 5. Gastroesophageal reflux disease. 6. Pressure ulcer on the left heel, treated. PLAN: To continue with the Lovenox 40 mg subcutaneous twice a day. Continue with wound care. Continue with all other medications. She will be swabbed at the appropriate time and will be discharged as planned. JESSICA JOHNSON MD DR: ALEK/silvestre JOB#: [id number] / [id number]
[2019-09-20] MEDS: ZOLPIDEM 5 MG TABLET. PO PRN (19:55)
[2019-09-20] MEDS: MONTELUKAST 10 MG TABLET. PO SCH (19:55)
[2019-09-20] MEDS: CALCIUM CARB/VIT D3 500/200 TABLET PO SCH (19:55)
[2019-09-20] MEDS: TAMSULOSIN 0.4 MG CAP.ER.24H. PO SCH (19:55)
[2019-09-20 20:02] VITALS: BP 136/72
[2019-09-21] MEDS: HYDROcodone/APAP 10/325 1 TAB TABLET PO PRN (00:02)
[2019-09-21] MEDS: ACETAMINOPHEN 325 MG TABLET PO PRN (05:34)
[2019-09-21] MEDS: LEVOTHYROXINE 125 MCG TABLET PO SCH (05:34)
[2019-09-21] MEDS: LACTOBACILLUS RHAMNOSUS GG 1 CAPSULE. PO SCH ×2 (07:53→20:16)
[2019-09-21] MEDS: busPIRone 15 MG TABLET. PO SCH ×2 (07:53→20:17)
[2019-09-21] MEDS: buPROPion XL 150 MG TAB.ER.24H PO SCH (07:53)
[2019-09-21] MEDS: CETIRIZINE HCL 10 MG TABLET PO SCH (07:53)
[2019-09-21] MEDS: METOPROLOL TART IMMED RELEASE 50 MG TABLET PO SCH ×2 (07:54→20:17)
[2019-09-21] MEDS: QUEtiapine 25 MG TABLET. PO SCH (07:55)
[2019-09-21] MEDS: ENOXAPARIN 40 MG/0.4 ML SYRINGE. SQ SCH ×2 (07:56→20:18)
[2019-09-21] MEDS: MULTIVITAMIN with MINERAL TABLET. PO SCH (07:56)
[2019-09-21] MEDS: SENNOSIDES/DOCUSATE 8.6/50MG TABLET. PO SCH (07:56)
[2019-09-21] MEDS: PANTOPRAZOLE 40 MG TABLET. PO SCH (07:56)
[2019-09-21] MEDS: ASPIRIN ENTERIC COATED 325 MG TABLET.DR. PO SCH (07:56)
[2019-09-21] MEDS: DICLOFENAC SODIUM 1% TOPICAL GEL 100GM TUBE. TP SCH ×2 (07:56→20:18)
[2019-09-21 08:26] VITALS: BP 121/65
--- NOTE | 2019-09-21 19:17 | PN ---
DATE: 09/21/2019 SUBJECTIVE: The patient is resting comfortably in her chair, in no apparent distress. On questioning her, denied any complaint, although she continued to be generally weak and not participating with physical therapy. She does have a pressure ulcer in her left heel covered with dressing. However, she remained completely asymptomatic with no fever, chills, no shortness of breath. She does have cough that has been chronic, mostly dry. PHYSICAL EXAMINATION: GENERAL: When I examined her this afternoon, she looked pale, not jaundice, cyanosis or thyromegaly. No jugular venous distention or limb edema. VITAL SIGNS: Her heart rate was 65, blood pressure was 121/65, temperature 97, respiratory rate 20, and oxygen saturation was 97%. HEAD, EYES, EARS, NOSE, AND THROAT : Showed normocephalic, atraumatic. NECK: Supple. HEART: Normal first and second heart sounds. No gallop, rub or murmur. CHEST: Clear to auscultation. No crepitation or rhonchi. ABDOMEN: Scaphoid, soft, nontender. NEUROLOGIC: She is awake, alert, responding appropriately. All cranial nerves intact. She is mostly bedbound, chair bound. She does have left heel decubitus ulcer covered with dressing. Her intake was 618, no output was recorded. LABORATORY DATA: Her most recent lab work also showed that she has normochromic normocytic anemia, normal white cell count and platelets. Her chemistry was also unremarkable. She does have mild hyponatremia. ASSESSMENT: 1. This is an 84-year-old female from [facility] who tested positive for COVID-19. The patient remains completely asymptomatic. 2. Essential hypertension. 3. Hypothyroidism, on replacement. 4. Gastroesophageal reflux disease. 5. Pressure ulcer of her left heel, followed by the Wound Care team. PLAN: Obviously to continue with all her medications. She was swabbed today and obviously depends on the test results and the requirement for snf facility, she might be able to be discharged sooner. JESSICA JOHNSON MD DR: ALEK/silvestre JOB#: [id number] / [id number]
[2019-09-21 19:29] VITALS: BP 90/52
[2019-09-21] MEDS: MONTELUKAST 10 MG TABLET. PO SCH (20:17)
[2019-09-21] MEDS: CALCIUM CARB/VIT D3 500/200 TABLET PO SCH (20:17)
[2019-09-21] MEDS: TAMSULOSIN 0.4 MG CAP.ER.24H. PO SCH (20:17)
[2019-09-21] MEDS: ZOLPIDEM 5 MG TABLET. PO PRN (20:18)
[2019-09-22] MEDS: LEVOTHYROXINE 125 MCG TABLET PO SCH (05:49)
[2019-09-22] MEDS: PANTOPRAZOLE 40 MG TABLET. PO SCH (07:30)
[2019-09-22 08:10] VITALS: BP 188/82
[2019-09-22] MEDS: LACTOBACILLUS RHAMNOSUS GG 1 CAPSULE. PO SCH ×2 (09:00→20:21)
[2019-09-22] MEDS: SENNOSIDES/DOCUSATE 8.6/50MG TABLET. PO SCH (09:00)
[2019-09-22] MEDS: QUEtiapine 25 MG TABLET. PO SCH (09:00)
[2019-09-22] MEDS: ENOXAPARIN 40 MG/0.4 ML SYRINGE. SQ SCH ×2 (09:00→20:20)
[2019-09-22] MEDS: MULTIVITAMIN with MINERAL TABLET. PO SCH (09:00)
[2019-09-22] MEDS: METOPROLOL TART IMMED RELEASE 50 MG TABLET PO SCH ×3 (09:00→20:21)
[2019-09-22] MEDS: ASPIRIN ENTERIC COATED 325 MG TABLET.DR. PO SCH (09:00)
[2019-09-22] MEDS: buPROPion XL 150 MG TAB.ER.24H PO SCH (09:00)
[2019-09-22] MEDS: CETIRIZINE HCL 10 MG TABLET PO SCH (09:00)
[2019-09-22] MEDS: busPIRone 15 MG TABLET. PO SCH ×2 (09:00→20:21)
[2019-09-22] MEDS: DICLOFENAC SODIUM 1% TOPICAL GEL 100GM TUBE. TP SCH ×2 (09:00→21:08)
[2019-09-22] MEDS: HYDROcodone/APAP 10/325 1 TAB TABLET PO PRN (17:37)
[2019-09-22 19:34] VITALS: BP 106/51
[2019-09-22] MEDS: CALCIUM CARB/VIT D3 500/200 TABLET PO SCH (20:21)
[2019-09-22] MEDS: MONTELUKAST 10 MG TABLET. PO SCH (20:21)
[2019-09-22] MEDS: TAMSULOSIN 0.4 MG CAP.ER.24H. PO SCH (20:21)
[2019-09-22] MEDS: ZOLPIDEM 5 MG TABLET. PO PRN (20:22)
--- NOTE | 2019-09-22 21:00 | PN ---
DATE: 09/22/2019 SUBJECTIVE: The patient is sitting comfortably in her chair, in no apparent distress. She continued to be uncooperative, refusing to participate with her care, but otherwise she remained stable, asymptomatic. Unfortunately, her coronavirus test still pending at the time of this dictation. PHYSICAL EXAMINATION: GENERAL: When I examined her, she looked pale. No jaundice, cyanosis or thyromegaly. No jugular venous distention. No limb edema. VITAL SIGNS: Her heart rate was 91, blood pressure was 188/82, temperature was 97.3, respiratory rate 20, and oxygen saturation was 95%. Rest of clinical exam is stable. She does have pressure ulcer on her left heel covered with dressing. Her intake over the last 24 hours was 516, output was recorded. LABORATORY DATA: She has no lab work done; however, she is known to have hyponatremia and I will repeat her lab work tomorrow. ASSESSMENT: 1. This is an 84-year-old female patient from [facility] who tested positive for COVID-19. We did swab her again yesterday, the result of which is still pending. CK remains completely asymptomatic. 2. Essential hypertension. 3. Hypothyroidism, on replacement. 4. Gastroesophageal reflux disease. 5. Pressure ulcer of left heel followed by the wound care team. PLAN: To continue with all her medications. She was swabbed yesterday and obviously depends on the test result and requirement of the [facility] facility, she might be able to be discharged sooner. JESSICA JOHNSON MD DR: ALEK/silvestre JOB#: [id number] / [id number]
[2019-09-23] MEDS: LEVOTHYROXINE 125 MCG TABLET PO SCH (05:19)
[2019-09-23 06:49] LABS: ALBUMIN 2.5 g/dL (3.4-5.0); ALBUMIN/GLOBULIN RATIO 0.8 (1.0-1.7); CALCIUM 8.5 mg/dL (8.5-10.1); CREATININE 1.1 mg/dL (0.6-1.0); GFR 47.1; POTASSIUM 4.1 mmol/L (3.5-5.1); TOTAL BILIRUBIN 0.4 mg/dL (0.2-1.0); TOTAL PROTEIN 5.7 g/dL (6.4-8.2)
[2019-09-23 08:00] VITALS: BP 114/74
[2019-09-23] MEDS: CETIRIZINE HCL 10 MG TABLET PO SCH (08:13)
[2019-09-23] MEDS: ACETAMINOPHEN 325 MG TABLET PO PRN ×2 (08:13→21:42)
[2019-09-23] MEDS: QUEtiapine 25 MG TABLET. PO SCH (08:13)
[2019-09-23] MEDS: buPROPion XL 150 MG TAB.ER.24H PO SCH (08:14)
[2019-09-23] MEDS: ASPIRIN ENTERIC COATED 325 MG TABLET.DR. PO SCH (08:14)
[2019-09-23] MEDS: busPIRone 15 MG TABLET. PO SCH ×2 (08:14→21:24)
[2019-09-23] MEDS: MULTIVITAMIN with MINERAL TABLET. PO SCH (08:14)
[2019-09-23] MEDS: LACTOBACILLUS RHAMNOSUS GG 1 CAPSULE. PO SCH ×2 (08:14→21:24)
[2019-09-23] MEDS: ENOXAPARIN 40 MG/0.4 ML SYRINGE. SQ SCH ×2 (08:15→21:25)
[2019-09-23] MEDS: PANTOPRAZOLE 40 MG TABLET. PO SCH (08:15)
[2019-09-23] MEDS: DICLOFENAC SODIUM 1% TOPICAL GEL 100GM TUBE. TP SCH ×2 (08:15→21:00)
[2019-09-23] MEDS: SENNOSIDES/DOCUSATE 8.6/50MG TABLET. PO SCH (08:15)
[2019-09-23] MEDS: METOPROLOL TART IMMED RELEASE 50 MG TABLET PO SCH ×2 (08:21→21:00)
--- NOTE | 2019-09-23 19:05 | PN ---
DATE: 09/23/2019 SUBJECTIVE: The patient is sitting comfortably in her chair, in no apparent distress. She continued to be uncooperative, does not want to participate in her wound care, but generally remained asymptomatic. Unfortunately, her coronavirus-2 PCR was detectable again. PHYSICAL EXAMINATION GENERAL: When I examined her, she was pale, but no jaundice, cyanosis or thyromegaly. No jugular venous distention or limb edema. VITAL SIGNS: Her heart rate was 95, blood pressure was 114/74, temperature 97.6, respiratory rate was 20, and oxygen saturation was 95%. HEAD, EYES, EARS, NOSE AND THROAT: Normocephalic, atraumatic. NECK: Supple. HEART: Showed normal first and second heart sounds. No gallop, rub or murmur. CHEST: Clear to auscultation. No crepitation or rhonchi. ABDOMEN: Distended, soft, nontender. NEUROLOGIC: She is awake, alert, responding appropriately. She moves extremities without difficulty, although she is mostly bedbound, chair bound. She has left heel decubitus ulcer covered with dressing. Her intake over the last 24 hours was 940. No output was recorded LABORATORY DATA: This morning her serum sodium was 135, potassium 4.1, chloride 100, bicarbonate 29, anion gap of 6, BUN 16, creatinine 1.1, estimated GFR was 47 mL per minute. Her glucose was 89, calcium was 8.5. Total bilirubin, AST, ALT, alkaline phosphatase were normal. Total protein was 5.7, and albumin 2.5. ASSESSMENT: 1. This is an 84-year-old female patient was transferred from [facility] where she was tested positive for COVID-19 and she was swabbed and unfortunately she is positive again; however, she remained completely asymptomatic. 2. Essential hypertension. 3. Hypothyroidism. 4. Gastroesophageal reflux disease. 5. Pressure ulcer on the left heel followed by the wound care team. PLAN: To continue with all her medications. Continue with DVT prophylaxis. Continue with all her psychotropic medications. JESSICA JOHNSON MD DR: ALEK/silvestre JOB#: [id number] / [id number]
[2019-09-23 19:37] VITALS: BP 98/58
[2019-09-23] MEDS: CALCIUM CARB/VIT D3 500/200 TABLET PO SCH (21:22)
[2019-09-23] MEDS: TAMSULOSIN 0.4 MG CAP.ER.24H. PO SCH (21:24)
[2019-09-23] MEDS: MONTELUKAST 10 MG TABLET. PO SCH (21:25)
[2019-09-23] MEDS: ZOLPIDEM 5 MG TABLET. PO PRN (21:41)
[2019-09-24] MEDS: LEVOTHYROXINE 125 MCG TABLET PO SCH (06:07)
[2019-09-24] MEDS: busPIRone 15 MG TABLET. PO SCH ×2 (08:52→20:05)
[2019-09-24] MEDS: buPROPion XL 150 MG TAB.ER.24H PO SCH (08:52)
[2019-09-24] MEDS: ENOXAPARIN 40 MG/0.4 ML SYRINGE. SQ SCH ×2 (08:52→20:05)
[2019-09-24] MEDS: MULTIVITAMIN with MINERAL TABLET. PO SCH (08:52)
[2019-09-24] MEDS: QUEtiapine 25 MG TABLET. PO SCH (08:53)
[2019-09-24] MEDS: ASPIRIN ENTERIC COATED 325 MG TABLET.DR. PO SCH (08:53)
[2019-09-24] MEDS: METOPROLOL TART IMMED RELEASE 50 MG TABLET PO SCH ×2 (08:53→20:07)
[2019-09-24] MEDS: SENNOSIDES/DOCUSATE 8.6/50MG TABLET. PO SCH (08:53)
[2019-09-24] MEDS: CETIRIZINE HCL 10 MG TABLET PO SCH (08:54)
[2019-09-24] MEDS: LACTOBACILLUS RHAMNOSUS GG 1 CAPSULE. PO SCH ×2 (08:54→20:05)
[2019-09-24] MEDS: PANTOPRAZOLE 40 MG TABLET. PO SCH (08:54)
[2019-09-24] MEDS: DICLOFENAC SODIUM 1% TOPICAL GEL 100GM TUBE. TP SCH ×2 (09:04→21:00)
[2019-09-24 09:57] VITALS: BP 144/64
--- NOTE | 2019-09-24 13:51 | PN ---
DATE: 09/24/2019 SUBJECTIVE: The patient is sitting comfortably in her chair, in no apparent distress. She denied any complaint. Nursing staff said she continued to be uncooperative and does not participate in her own care, but remained completely asymptomatic. PHYSICAL EXAMINATION: GENERAL: When I examined her, she looked well, slightly pale, but no jaundice, cyanosis or thyromegaly. No jugular venous distention. No lower limb edema. VITAL SIGNS: Her heart rate was 91, blood pressure is 144/64, temperature was 97.5, respiratory rate was 18 and oxygen saturation was 98%. HEAD, EYES, EARS, NOSE AND THROAT: Normocephalic, atraumatic. NECK: Supple. HEART: Showed normal first and second heart sounds. No gallop or murmur. CHEST: Clear to auscultation. No crepitation or rhonchi. ABDOMEN: Distended, soft, nontender. NEUROLOGIC: She is grossly intact. EXTREMITIES: She has decubitus pressure ulcer on the left heel, covered with dressing. Her intake is 890. No output was recorded. LABORATORY DATA: As of yesterday, her serum sodium is up to 135, potassium 4.1, chloride 100, bicarbonate 29, anion gap of 6, BUN 16, creatinine 1.1, estimated GFR was 47 mL per minute. Her glucose was 89, calcium was 8.5. Total bilirubin, AST, ALT, alkaline phosphatase were normal. Total protein was 5.7, albumin was 2.5. ASSESSMENT: 1. This is an 84-year-old female patient who was transferred from [facility] where she was tested positive for COVID-19. Unfortunately, she became positive again on 09/20. However, she remained completely asymptomatic. 2. Essential hypertension. 3. Hypothyroidism. 4. Gastroesophageal reflux disease. 5. Pressure ulcer on the left heel, followed by the wound care team. PLAN: To continue with all her psychotropic medication. Continue with all other medications. Continue with DVT prophylaxis. JESSICA JOHNSON MD DR: ALEK/silvestre JOB#: [id number] / [id number]
[2019-09-24 19:47] VITALS: BP 85/55
[2019-09-24] MEDS: ZOLPIDEM 5 MG TABLET. PO PRN (20:05)
[2019-09-24] MEDS: CALCIUM CARB/VIT D3 500/200 TABLET PO SCH (20:05)
[2019-09-24] MEDS: TAMSULOSIN 0.4 MG CAP.ER.24H. PO SCH (20:06)
[2019-09-24] MEDS: MONTELUKAST 10 MG TABLET. PO SCH (20:06)
[2019-09-24 20:13] VITALS: BP 101/60
[2019-09-25] MEDS: ZOLPIDEM 5 MG TABLET. PO PRN ×2 (01:41→19:52)
[2019-09-25 01:55] VITALS: BP 95/58
[2019-09-25] MEDS: LEVOTHYROXINE 125 MCG TABLET PO SCH (05:30)
[2019-09-25] MEDS: busPIRone 15 MG TABLET. PO SCH ×2 (07:32→19:51)
[2019-09-25] MEDS: ASPIRIN ENTERIC COATED 325 MG TABLET.DR. PO SCH (07:32)
[2019-09-25] MEDS: LACTOBACILLUS RHAMNOSUS GG 1 CAPSULE. PO SCH ×2 (07:32→19:53)
[2019-09-25] MEDS: CETIRIZINE HCL 10 MG TABLET PO SCH (07:32)
[2019-09-25] MEDS: buPROPion XL 150 MG TAB.ER.24H PO SCH (07:32)
[2019-09-25] MEDS: SENNOSIDES/DOCUSATE 8.6/50MG TABLET. PO SCH (07:36)
[2019-09-25] MEDS: QUEtiapine 25 MG TABLET. PO SCH (07:40)
[2019-09-25] MEDS: MULTIVITAMIN with MINERAL TABLET. PO SCH (07:40)
[2019-09-25] MEDS: METOPROLOL TART IMMED RELEASE 50 MG TABLET PO SCH ×2 (07:41→19:52)
[2019-09-25] MEDS: PANTOPRAZOLE 40 MG TABLET. PO SCH (07:41)
[2019-09-25] MEDS: DICLOFENAC SODIUM 1% TOPICAL GEL 100GM TUBE. TP SCH ×2 (07:42→19:53)
[2019-09-25] MEDS: ENOXAPARIN 40 MG/0.4 ML SYRINGE. SQ SCH ×2 (07:42→19:51)
[2019-09-25 08:38] VITALS: BP 131/69
--- NOTE | 2019-09-25 19:05 | PN ---
DATE: 09/25/2019 SUBJECTIVE: The patient is sitting comfortably in her chair, in no apparent respiratory distress. On questioning her, she denied any complaints. Nursing staff said that she continued to be completely asymptomatic; however, she is very noncooperative, refused to participate with her care. PHYSICAL EXAMINATION: GENERAL: When I examined her, she looked well, pale, but no jaundice, cyanosis or thyromegaly. No jugular venous distention. No lower limb edema. VITAL SIGNS: Her heart rate was 93, blood pressure was 131/69, temperature 98.3, respiratory rate was 20, and oxygen saturation was 96%. HEAD, EYES, EARS, NOSE AND THROAT: Showed normocephalic, atraumatic. NECK: Supple. HEART: Showed normal first and second heart sounds. No gallop, rub or murmur. CHEST: Clear to auscultation. No crepitation or rhonchi. ABDOMEN: Scaphoid, soft, nontender. NEUROLOGIC: She is awake, alert, responding appropriately. All cranial nerves intact. She moves extremities without difficulty, although she is mostly bedbound, chair bound, although she was able to walk with a walker prior to her admission to the hospital. She has left heel decubitus ulcer covered with dressing. Her intake over the last 24 hours was 780, no output was recorded. LABORATORY DATA: She has no lab work done. Her most recent lab was done on 09/23/2019, showed a serum sodium 135, potassium 4.1, chloride 100, bicarbonate 29, anion gap of 6, BUN 16, creatinine 1.1, estimated GFR was 47 mL per minute. Her glucose was 89, calcium was 8.5. Total bilirubin, AST, ALT, alkaline phosphatase were normal. Total protein was 5.7, albumin 2.5. ASSESSMENT: 1. This is an 84-year-old female patient who was transferred from [facility] where she has tested positive for COVID-19. Unfortunately, she became positive again on 09/21/2019; however, she remains completely asymptomatic. 2. Essential hypertension. 3. Hypothyroidism. 4. Gastroesophageal reflux disease. 5. Pressure ulcer on the left heel, followed by the wound care team. PLAN: To continue with all her psychotropic medication. Continue with all her other medications. Continue with DVT prophylaxis. JESSICA JOHNSON MD DR: Rell JOB#: [id number] / [id number]
[2019-09-25 19:30] VITALS: BP 98/57
[2019-09-25] MEDS: ACETAMINOPHEN 325 MG TABLET PO PRN (19:52)
[2019-09-25] MEDS: MONTELUKAST 10 MG TABLET. PO SCH (19:52)
[2019-09-25] MEDS: TAMSULOSIN 0.4 MG CAP.ER.24H. PO SCH (19:52)
[2019-09-25] MEDS: CALCIUM CARB/VIT D3 500/200 TABLET PO SCH (19:53)
[2019-09-26] MEDS: LEVOTHYROXINE 125 MCG TABLET PO SCH (05:08)
[2019-09-26 07:32] VITALS: BP 139/82
[2019-09-26] MEDS: DICLOFENAC SODIUM 1% TOPICAL GEL 100GM TUBE. TP SCH ×2 (09:00→20:25)
[2019-09-26] MEDS: PANTOPRAZOLE 40 MG TABLET. PO SCH (09:02)
[2019-09-26] MEDS: ASPIRIN ENTERIC COATED 325 MG TABLET.DR. PO SCH (09:03)
[2019-09-26] MEDS: METOPROLOL TART IMMED RELEASE 50 MG TABLET PO SCH ×2 (09:03→20:24)
[2019-09-26] MEDS: LACTOBACILLUS RHAMNOSUS GG 1 CAPSULE. PO SCH ×2 (09:03→20:23)
[2019-09-26] MEDS: SENNOSIDES/DOCUSATE 8.6/50MG TABLET. PO SCH (09:04)
[2019-09-26] MEDS: CETIRIZINE HCL 10 MG TABLET PO SCH (09:04)
[2019-09-26] MEDS: buPROPion XL 150 MG TAB.ER.24H PO SCH (09:04)
[2019-09-26] MEDS: MULTIVITAMIN with MINERAL TABLET. PO SCH (09:04)
[2019-09-26] MEDS: QUEtiapine 25 MG TABLET. PO SCH (09:05)
[2019-09-26] MEDS: busPIRone 15 MG TABLET. PO SCH ×2 (09:05→20:25)
[2019-09-26] MEDS: ENOXAPARIN 40 MG/0.4 ML SYRINGE. SQ SCH ×2 (09:06→20:25)
[2019-09-26 19:14] VITALS: BP 111/54
--- NOTE | 2019-09-26 19:27 | PN ---
DATE: 09/26/2019 SUBJECTIVE: The patient is resting almost flat in bed, in no apparent distress. She continued to complain of decreased cough. Denied any chest pain, denied any shortness of breath. Denied any chills, rigors or fever. OBJECTIVE: GENERAL: On examined her, she looked pale, but no jaundice, cyanosis or thyromegaly. No jugular venous distention. No limb edema. VITAL SIGNS: Her heart rate was 83, blood pressure 139/82, temperature was 97.5, respiratory rate was 20, and oxygen saturation was 96%. HEAD, EYES, EARS, NOSE AND THROAT: Showed normocephalic and atraumatic. NECK: Supple. HEART: Showed normal first and second heart sounds. No gallop or murmur. CHEST: Clear to auscultation. No crepitation or rhonchi. ABDOMEN: Scaphoid, soft, nontender. NEUROLOGIC: She is awake, alert, responding appropriately. All cranial nerves intact. She moves extremities without difficulty, although she is mostly bedbound, chair bound. SKIN: She has a pressure ulcer on the left heel, followed by the wound care team. Her intake and output are incompletely recorded. LABORATORY DATA: Her most recent lab work showed a serum sodium 135, potassium 4.1, chloride 100, bicarbonate 29, anion gap of 6, BUN 16, creatinine 1.1. ASSESSMENT: 1. This is an 84-year-old female patient who was transferred from [facility]. She was tested positive for COVID-19. Unfortunately, she became positive again on 09/21/2019; however, she remains completely asymptomatic. 2. Essential hypertension. 3. Hypothyroidism. 4. Gastroesophageal reflux disease. 5. Pressure ulcer and left heel followed by the wound care. PLAN: To continue with psychotropic medication. Continue with wound care. Continue with all other medication. Continue DVT prophylaxis. I believe she would be swabbed again tomorrow. Once she has 2 negative swabs for COVID-19, she can be released to a senior care facility. JESSICA JOHNSON MD DR: ALEK/silvestre JOB#: [id number] / [id number]
[2019-09-26] MEDS: MONTELUKAST 10 MG TABLET. PO SCH (20:23)
[2019-09-26] MEDS: CALCIUM CARB/VIT D3 500/200 TABLET PO SCH (20:23)
[2019-09-26] MEDS: TAMSULOSIN 0.4 MG CAP.ER.24H. PO SCH (20:23)
[2019-09-26] MEDS: ZOLPIDEM 5 MG TABLET. PO PRN (20:24)
[2019-09-27] MEDS: BENZOCAINE/MENTHOL LOZNGE 18'S BOX. PO PRN (01:52)
[2019-09-27] MEDS: LEVOTHYROXINE 125 MCG TABLET PO SCH (05:23)
[2019-09-27 07:58] VITALS: BP 129/71
[2019-09-27] MEDS: METOPROLOL TART IMMED RELEASE 50 MG TABLET PO SCH ×2 (08:13→20:19)
[2019-09-27] MEDS: SENNOSIDES/DOCUSATE 8.6/50MG TABLET. PO SCH (08:13)
[2019-09-27] MEDS: ASPIRIN ENTERIC COATED 325 MG TABLET.DR. PO SCH (08:13)
[2019-09-27] MEDS: LACTOBACILLUS RHAMNOSUS GG 1 CAPSULE. PO SCH ×2 (08:14→20:19)
[2019-09-27] MEDS: MULTIVITAMIN with MINERAL TABLET. PO SCH (08:14)
[2019-09-27] MEDS: HYDROcodone/APAP 10/325 1 TAB TABLET PO PRN (08:14)
[2019-09-27] MEDS: QUEtiapine 25 MG TABLET. PO SCH (08:14)
[2019-09-27] MEDS: PANTOPRAZOLE 40 MG TABLET. PO SCH (08:14)
[2019-09-27] MEDS: CETIRIZINE HCL 10 MG TABLET PO SCH (08:14)
[2019-09-27] MEDS: DICLOFENAC SODIUM 1% TOPICAL GEL 100GM TUBE. TP SCH ×2 (08:15→20:20)
[2019-09-27] MEDS: buPROPion XL 150 MG TAB.ER.24H PO SCH (08:15)
[2019-09-27] MEDS: ENOXAPARIN 40 MG/0.4 ML SYRINGE. SQ SCH ×2 (08:15→20:19)
[2019-09-27] MEDS: busPIRone 15 MG TABLET. PO SCH ×2 (08:15→20:19)
--- NOTE | 2019-09-27 11:25 | PN ---
DATE: 09/27/2019 ATTENDING PHYSICIAN: Dr. Domingo. SUBJECTIVE: No new complaints. She is cooperative. She denied any pain, fevers. OBJECTIVE FINDINGS: VITAL SIGNS: Her blood pressure is 111/54 mmHg. Her temperature is 97.1 degrees Fahrenheit, oxygen saturation 97% on room air and her pulse is 80 and regular. HEENT: Head is without trauma. Pupils are reactive. Sclerae nonicteric. Oropharynx clear. NECK: Supple, no bruits. LUNGS: Clear to auscultation. CARDIOVASCULAR: Showed regular heart tones. No gallops. ABDOMEN: Soft, scaphoid, nontender to palpation. NEUROLOGIC: Fully awake. She is alert. Speech is fluent. SKIN: Warm and dry. EXTREMITIES: Without edema. The left ankle remains immobilized. ASSESSMENT: 1. An 84-[facility]-old [facility] who tested positive for COVID-19 coronavirus. She is asymptomatic. Unfortunately, she tested positive again on 09/21/2019. 2. Hypertension. 3. Hypothyroidism, on replacement. 4. Gastroesophageal reflux disease. 5. Pressure ulcer on the left heel, followed by the wound team. PLAN: 1. Meds reviewed and continued. 2. Diet as tolerated. 3. Recheck a swab when appropriate. TONY DOMINGO MD DR: ROOPA/silvestre JOB#: [id number] / [id number]
--- NOTE | 2019-09-27 15:59 | PDOC ---
PROGRESS NOTES Diagnosis DIAGNOSIS Right heel unstageable pressure ulcer Assessment Unstageable right heel pressure ulcer -Due to stagnant wound healing, obtain arterial Doppler to ensure adequate blood supply to the lower extremity -Cleanse and pat dry wound. Apply skin prep to surrounding tissue. Cover with Hydrofera Blue for autolytic debridement. Cover with foam adhesive. Change every 3 days or as needed if dressing loose or saturated -Patient in pro core boot for offloading. This should be worn at all times. -Dietary consulting to ensure patient with adequate protein intake for optimal wound healing. Objective Vital Signs Date Time Temp Pulse Resp B/P (MAP) Pulse Ox O2 Delivery O2 Flow Rate FiO2 09/27/19 09:14 18 97 Room Air 09/27/19 08:13 79 129/71 09/27/19 07:58 97.1 Intake and Output 09/27/19 07:00 Intake Total 960 ml Balance 960 ml Intake Oral 960 ml # Voids 4 # Bowel Movements 3 Physical Exam Patient awake and alert 84-year-old female in no apparent distress. Patient pleasant in conversation. Vital signs are stable and patient is af ebrile. Respirations are even and unlabored. Patient is on room air not requiring supplemental oxygen. Abdomen is soft, nondistended and nontender. Skin is warm, dry and pink. The right heel reveals a 3 x 3.5 x 0.2 cm open ulceration. Wound bed is 50% slough eschar and 50% granulation. Edges are attached and non-rolling. There is mild surrounding erythema without edema pres ent. There is no odor following cleansing. There is moderate serosanguineous drainage on the previous dressing. A pedal pulse is difficult to find, however is present Review of Relevant I have reviewed the following items jaleesa (where applicable) has been applied. Medications Current Medications Acetaminophen (Tylenol) 650 mg PRN Q6HRS PRN PO mild pain/temp Last administered on 09/25/19 19:52; Start 09/07/19 at 15:45 Aspirin (Aspirin Enteric Coated) 325 mg DAILY PO Last administered on 09/27/19at 08:13; Start 09/08/19 at 09:00 Throat Lozenges (Cepacol Sore Throat Lozenge) 1 zelalem PRN Q2HR PRN PO sore throat Last administered on 09/27/19at 01:52; Start 09/07/19 at 15:45 Buspirone HCl (Buspar) 15 mg BID PO Last administered on 09/27/19 08:15; Start 09/07/19 at 21:00 Cetirizine HCl (ZyrTEC) 10 mg DAILY PO Last administered on 09/27/19 08:14; Start 09/08/19 at 09:00 Diclofenac Sodium (Voltaren) 1 tyrone BID TP Last administered on 09/27/19 08:15; Start 09/07/19 at 21:00 Duloxetine HCl (Cymbalta) 30 mg DAILY PO Last administered on 09/19/19at 08:28; Start 09/08/19 at 09:00; Stop 09/20/19 at 07:44; Status DC Acetaminophen/ Hydrocodone Bitart (Lortab 10/325) 1 tab TID PRN PRN PO MODERATE PAIN 4-6 Last administered on 09/27/19at 08:14; Start 09/07/19 at 15:45 Lactobacillus Rhamnosus (Culturelle) 1 cap BID PO Last administered on 09/27/19at 08:14; Start 09/07/19 at 21:00 Levothyroxine Sodium (Synthroid) 88 mcg DAILY06 PO Last administered on 09/09/19at 06:38; Start 09/08/19 at 06:00; Stop 09/09/19 at 14:07; Status DC Al Hydroxide/Mg Hydroxide (Mylanta Plus Xs) 15 ml PRN AFTMEALHC PRN PO DYSPEPSIA; Start 09/07/19 at 15:45 Metoprolol Tartrate (Lopressor) 50 mg BID PO Last administered on 09/27/19 08:13; Start 09/07/19 at 21:00 Montelukast Sodium (Singulair) 10 mg HS PO Last administered on 09/26/19 20:23; Start 09/07/19 at 21:00 Multivitamins/ Calcium (Thera-M Plus) 1 tab DAILY PO Last administered on 09/27/19 08:14; Start 09/08/19 at 09:00 Pantoprazole Sodium (Protonix) 40 mg DAILYAC PO Last administered on 09/27/19 08:14; Start 09/07/19 at 07:30 Senna/Docusate Sodium (Senna Plus) 2 tab DAILY PO Last administered on 09/27/19 08:13; Start 09/08/19 at 09:00 Tamsulosin HCl (Flomax) 0.4 mg QHS PO Last administered on 09/26/19 20:23; Start 09/07/19 at 21:00 Zolpidem Tartrate (Ambien) 5 mg PRN QHS PRN PO INSOMNIA Last administered on 09/26/19 20:24; Start 09/07/19 at 15:45 Calcium/Vitamin D (Oscal D 500mg/ 200uts) 1 tab QHS PO Last administered on 09/26/19 20:23; Start 09/07/19 at 21:00 Magnesium Hydroxide (Milk Of Magnesia) 2,400 mg PRN QHS PRN PO CONSTIPATION Last administered on 09/19/19 12:03; Start 09/07/19 at 16:00 Multi-Ingredient Ointment (Analgesic [place]) 1 tyrone PRN QID PRN TP MUSCLE PAIN; Start 09/07/19 at 16:00 Metoclopramide HCl (Reglan) 5 mg TIDAC PO Last administered on 09/19/19 17:10; Start 09/08/19 at 11:30; Stop 09/20/19 at 07:57; Status DC Enoxaparin Sodium (Lovenox 40mg Syringe) 40 mg Q12HR SQ Last administered on 09/27/19 08:15; Start 09/08/19 at 21:00 Levothyroxine Sodium (Synthroid) 125 mcg DAILY06 PO Last administered on 09/27/19 05:23; Start 09/10/19 at 06:00 Throat Lozenges (Cepacol Sore Throat Lozenge) 1 zelalem PRN Q2HR PRN PO SORE THROAT; Start 09/09/19 at 14:15; Status UNV Bupropion HCl (Wellbutrin Xl) 150 mg DAILY PO Last administered on 09/27/19 08:15; Start 09/20/19 at 09:00 Quetiapine Fumarate (SEROquel) 12.5 mg DAILY PO Last administered on 09/27/19 08:14; Start 09/20/19 at 09:00 Olanzapine (ZyPREXA ZYDIS) 2.5 mg PRN Q2HRS PRN PO ANXIETY / AGITATION; Start 09/20/19 at 07:45 Active Scripts Active Reported Reglan (Metoclopramide Hcl) 5 Mg Tablet 1 Tab PO TIDAC 1 hour prior to procedure Milk Of Magnesia (Magnesium Hydroxide) 2,400 Mg/10 Ml Oral.susp 2,400 Mg PO PRN QHS PRN Mylanta Maximum Strength Liq (Mag Hydrox/Aluminum Hyd/Simeth) 355 Ml Oral.susp 15 Ml PO PRN AFTMEALHC PRN Cymbalta (Duloxetine Hcl) 30 Mg Capsule. 30 Mg PO DAILY Calcium + Vitamin D Tablet (Calcium Carbonate/Vitamin D3) 1 Each Tablet 1 Each PO HS Cepacol Sore Throat Lozenge (Benzocaine/Menthol) 1 Each Lozenge 1 Lozenge PO PRN Q2HR PRN 3 Days Tylenol (Acetaminophen) 325 Mg Tablet 650 Mg PO PRN Q6HRS PRN Analgesic [place] (Methyl Salicylate/Menthol) 28 Gm Oint...g. 1 [place] TP PRN QID PRN Flomax (Tamsulosin Hcl) 0.4 Mg Cap.er.24h 0.4 Mg PO QHS Thera-M Tablet (Multivits,Ca,Minerals/Iron/Fa) 1 Each Tablet 1 Tab PO DAILY Buspirone Hcl 15 Mg Tablet 15 Mg PO BID Ambien (Zolpidem Tartrate) 5 Mg Tablet 5 Mg PO PRN QHS PRN Senna Plus Tablet (Sennosides/Docusate Sodium) 1 Each Tablet 2 Tab PO DAILY Protonix (Pantoprazole Sodium) 40 Mg Tablet. 40 Mg PO DAILY Montelukast Sodium Tablet (Montelukast Sodium) 10 Mg Tablet 10 Mg PO HS Metoprolol Tartrate 50 Mg Tablet 50 Mg PO BID Synthroid (Levothyroxine Sodium) 88 Mcg Tablet 88 Mcg PO DAILY06 Culturelle (Lactobacillus Rhamnosus Gg) 1 Each Cap.sprink 1 Cap PO BID Hydrocodone-Apap 10-325 (Hydrocodone Bit/Acetaminophen) 1 Each Tablet 1 Tab PO TID PRN PRN Voltaren (Diclofenac Sodium) 100 Gm Gel..gram. 1 [place] TP BID apply to affected area(s) Zyrtec (Cetirizine Hcl) 10 Mg Tablet 10 Mg PO DAILY Aspirin Ec (Aspirin) 325 Mg Tablet. 1 Tab PO DAILY Vitals/I & O Vital Sign - Last 24 Hours 09/26/19 09/26/19 09/26/19 09/27/19 19:14 20:24 20:34 07:58 Temp 98.5 97.1 Pulse 68 68 79 Resp 20 B/P (MAP) 111/54 (73) 111/54 129/71 (90) Pulse Ox 95 97 O2 Delivery Room Air Room Air Room Air 09/27/19 09/27/19 09/27/19 09/27/19 08:13 08:14 08:15 09:14 Pulse 79 Resp 20 18 B/P (MAP) 129/71 Pulse Ox 97 97 O2 Delivery Room Air Room Air Room Air Intake and Output 09/26/19 09/26/19 09/27/19 15:00 23:00 07:00 Intake Total 600 ml 240 ml 120 ml Balance 600 ml 240 ml 120 ml ALEC DOMINGO APRN Sep 27, 2019 15:59
[2019-09-27 19:43] VITALS: BP 106/61
[2019-09-27] MEDS: CALCIUM CARB/VIT D3 500/200 TABLET PO SCH (20:18)
[2019-09-27] MEDS: ZOLPIDEM 5 MG TABLET. PO PRN (20:19)
[2019-09-27] MEDS: MONTELUKAST 10 MG TABLET. PO SCH (20:19)
[2019-09-27] MEDS: TAMSULOSIN 0.4 MG CAP.ER.24H. PO SCH (20:19)
[2019-09-28] MEDS: LEVOTHYROXINE 125 MCG TABLET PO SCH (05:03)
[2019-09-28 08:00] VITALS: BP 127/65
[2019-09-28] MEDS: ENOXAPARIN 40 MG/0.4 ML SYRINGE. SQ SCH ×2 (08:12→21:11)
[2019-09-28] MEDS: LACTOBACILLUS RHAMNOSUS GG 1 CAPSULE. PO SCH ×2 (08:12→21:10)
[2019-09-28] MEDS: ASPIRIN ENTERIC COATED 325 MG TABLET.DR. PO SCH (08:13)
[2019-09-28] MEDS: buPROPion XL 150 MG TAB.ER.24H PO SCH (08:13)
[2019-09-28] MEDS: CETIRIZINE HCL 10 MG TABLET PO SCH (08:13)
[2019-09-28] MEDS: SENNOSIDES/DOCUSATE 8.6/50MG TABLET. PO SCH (08:13)
[2019-09-28] MEDS: MULTIVITAMIN with MINERAL TABLET. PO SCH (08:13)
[2019-09-28] MEDS: PANTOPRAZOLE 40 MG TABLET. PO SCH (08:13)
[2019-09-28] MEDS: QUEtiapine 25 MG TABLET. PO SCH (08:14)
[2019-09-28] MEDS: METOPROLOL TART IMMED RELEASE 50 MG TABLET PO SCH ×2 (08:14→20:05)
[2019-09-28] MEDS: DICLOFENAC SODIUM 1% TOPICAL GEL 100GM TUBE. TP SCH ×2 (08:14→21:00)
[2019-09-28] MEDS: busPIRone 15 MG TABLET. PO SCH ×2 (08:14→21:10)
--- NOTE | 2019-09-28 13:06 | PN ---
DATE: 09/28/2019 ATTENDING PHYSICIANS: Dr. Domingo and Dr. Morales. SUBJECTIVE: No new complaints. She is in her usual chair watching a [employer]. She denied any pain or shortness of breath. No fevers. OBJECTIVE FINDINGS: VITAL SIGNS: The patient's temperature is 97.4 degrees Fahrenheit, blood pressure is 127/65 mmHg, pulse 81 and regular, oxygen saturation 96% on room air. HEENT: Head is without trauma. Pupils are reactive. Sclerae nonicteric. Oropharynx clear. NECK: Supple. LUNGS: Good breath sounds. CARDIOVASCULAR: Showed regular heart tones. ABDOMEN: Soft. NEUROLOGIC: Fully awake, alert. Speech is fluent. No focal deficit. SKIN: Warm and dry. EXTREMITIES: Ankle remains immobilized. No edema. ASSESSMENT: 1. An 84-[facility]-old [facility] positive for COVID-19 (coronavirus). She remains asymptomatic. 2. Hypertension. 3. Hypothyroidism, on replacement. 4. Gastroesophageal reflux disease, stable. 5. Pressure ulcer on the left heel. PLAN: 1. Meds reviewed and continued. 2. Diet as tolerated. 3. Recheck coronavirus swabs when appropriate. 4. We are still working on placement. TONY DOMINGO MD DR: ROOPA/silvestre JOB#: [id number] / [id number]
[2019-09-28 19:32] VITALS: BP 96/51
[2019-09-28] MEDS: MONTELUKAST 10 MG TABLET. PO SCH (21:10)
[2019-09-28] MEDS: CALCIUM CARB/VIT D3 500/200 TABLET PO SCH (21:10)
[2019-09-28] MEDS: TAMSULOSIN 0.4 MG CAP.ER.24H. PO SCH (21:10)
[2019-09-28] MEDS: ZOLPIDEM 5 MG TABLET. PO PRN (21:10)
[2019-09-28 23:40] VITALS: BP 124/86
[2019-09-28] MEDS: HYDROcodone/APAP 10/325 1 TAB TABLET PO PRN (23:41)
[2019-09-29] MEDS: LEVOTHYROXINE 125 MCG TABLET PO SCH ×2 (05:12→21:52)
[2019-09-29] MEDS: ASPIRIN ENTERIC COATED 325 MG TABLET.DR. PO SCH (07:37)
[2019-09-29] MEDS: PANTOPRAZOLE 40 MG TABLET. PO SCH (07:37)
[2019-09-29] MEDS: MULTIVITAMIN with MINERAL TABLET. PO SCH (07:38)
[2019-09-29] MEDS: buPROPion XL 150 MG TAB.ER.24H PO SCH (07:38)
[2019-09-29] MEDS: QUEtiapine 25 MG TABLET. PO SCH (07:38)
[2019-09-29] MEDS: LACTOBACILLUS RHAMNOSUS GG 1 CAPSULE. PO SCH ×2 (07:38→21:51)
[2019-09-29] MEDS: CETIRIZINE HCL 10 MG TABLET PO SCH (07:38)
[2019-09-29] MEDS: METOPROLOL TART IMMED RELEASE 50 MG TABLET PO SCH ×2 (07:38→21:52)
[2019-09-29] MEDS: ENOXAPARIN 40 MG/0.4 ML SYRINGE. SQ SCH ×2 (07:39→21:54)
[2019-09-29] MEDS: SENNOSIDES/DOCUSATE 8.6/50MG TABLET. PO SCH (07:39)
[2019-09-29] MEDS: busPIRone 15 MG TABLET. PO SCH ×2 (07:39→21:51)
[2019-09-29 08:22] VITALS: BP 97/48
[2019-09-29] MEDS: DICLOFENAC SODIUM 1% TOPICAL GEL 100GM TUBE. TP SCH ×2 (09:00→21:00)
--- NOTE | 2019-09-29 14:11 | PN ---
DATE: 09/29/2019 ATTENDING PHYSICIAN: Dr. Domingo. SUBJECTIVE: No new complaints. She is comfortable. She denied any pain or shortness of breath. She is eating well. OBJECTIVE FINDINGS: VITAL SIGNS: Blood pressure today is 124/86, pulse is 79 and regular, temperature 97.4 degrees Fahrenheit, oxygen saturation 98% on room air. HEENT: Head is without trauma. Pupils are reactive. Sclerae are nonicteric. Oropharynx is clear. NECK: Supple. LUNGS: Otherwise clear. CARDIOVASCULAR: Showed regular heart tones. No gallops. ABDOMEN: Soft, scaphoid, nontender. EXTREMITIES: Without edema. NEUROLOGIC: Focally intact. SKIN: Warm and dry. ASSESSMENT: 1. An 84-year-old female with COVID-19 positive coronavirus swab. She remains asymptomatic. 2. Essential hypertension, currently normotensive. 3. Hypothyroidism, on replacement. 4. Gastroesophageal reflux disease. 5. Pressure ulcer of left heel, treated. PLAN: 1. Diet as tolerated. 2. Recheck coronavirus swabs when appropriate. 3. We are working on placement. 4. Meds reviewed and continued. TONY DOMINGO MD DR: ROOPA/silvestre JOB#: [id number] / [id number]
[2019-09-29] MEDS: HYDROcodone/APAP 10/325 1 TAB TABLET PO PRN ×2 (14:26→21:53)
[2019-09-29 20:13] VITALS: BP 117/54
[2019-09-29] MEDS: MONTELUKAST 10 MG TABLET. PO SCH (21:51)
[2019-09-29] MEDS: CALCIUM CARB/VIT D3 500/200 TABLET PO SCH (21:52)
[2019-09-29] MEDS: TAMSULOSIN 0.4 MG CAP.ER.24H. PO SCH (21:52)
[2019-09-29] MEDS: ZOLPIDEM 5 MG TABLET. PO PRN (21:53)
[2019-09-30] MEDS: LEVOTHYROXINE 125 MCG TABLET PO SCH (06:04)
[2019-09-30] MEDS: ENOXAPARIN 40 MG/0.4 ML SYRINGE. SQ SCH ×2 (07:44→20:59)
[2019-09-30] MEDS: MULTIVITAMIN with MINERAL TABLET. PO SCH (07:44)
[2019-09-30] MEDS: PANTOPRAZOLE 40 MG TABLET. PO SCH (07:44)
[2019-09-30] MEDS: SENNOSIDES/DOCUSATE 8.6/50MG TABLET. PO SCH (07:44)
[2019-09-30] MEDS: CETIRIZINE HCL 10 MG TABLET PO SCH (07:45)
[2019-09-30] MEDS: busPIRone 15 MG TABLET. PO SCH ×2 (07:45→20:58)
[2019-09-30] MEDS: buPROPion XL 150 MG TAB.ER.24H PO SCH (07:45)
[2019-09-30] MEDS: HYDROcodone/APAP 10/325 1 TAB TABLET PO PRN ×2 (07:45→20:58)
[2019-09-30] MEDS: LACTOBACILLUS RHAMNOSUS GG 1 CAPSULE. PO SCH ×2 (07:45→20:59)
[2019-09-30] MEDS: QUEtiapine 25 MG TABLET. PO SCH (07:45)
[2019-09-30] MEDS: METOPROLOL TART IMMED RELEASE 50 MG TABLET PO SCH ×2 (07:46→20:59)
[2019-09-30] MEDS: DICLOFENAC SODIUM 1% TOPICAL GEL 100GM TUBE. TP SCH ×2 (07:46→21:00)
[2019-09-30] MEDS: ASPIRIN ENTERIC COATED 325 MG TABLET.DR. PO SCH (07:46)
[2019-09-30 08:18] VITALS: BP 138/86
--- NOTE | 2019-09-30 12:15 | PN ---
DATE: 09/30/2019 ATTENDING PHYSICIAN: Dr. Domingo. SUBJECTIVE: The patient is comfortable. She has no complaints. She is watching television in her usual chair. She is eating well. OBJECTIVE FINDINGS: VITAL SIGNS: Blood pressure today is 138/86 mmHg, pulse 77 and regular, temperature 97.6 degrees Fahrenheit, oxygen saturation 96% on room air. HEENT: Head is without trauma. Pupils are reactive. Sclerae nonicteric. Oropharynx clear. NECK: Supple, no bruits. LUNGS: Clear. CARDIOVASCULAR: Showed regular heart tones. No gallops. ABDOMEN: Soft. EXTREMITIES: Unchanged. Her wound is clean and dressed. SKIN: Warm and dry. PERTINENT LABORATORY DATA: Her most recent coronavirus swab from 09/28/2019 is reportedly negative. ASSESSMENT: 1. An 84-year-old female with COVID-19 positive swabs. She remains asymptomatic. 2. Essential hypertension. 3. Hypothyroidism, on replacement. 4. Gastroesophageal reflux disease. 5. Pressure ulcer of the left heel, managed. PLAN: 1. We will get consecutive negative swabs necessary for placement. 2. Diet as tolerated. If her next swab remains negative, we can successfully discharge her to an extended care facility. TONY DOMINGO MD DR: ROOPA/silvestre JOB#: [id number] / [id number]
[2019-09-30 20:33] VITALS: BP 106/62
[2019-09-30] MEDS: ZOLPIDEM 5 MG TABLET. PO PRN (20:58)
[2019-09-30] MEDS: MONTELUKAST 10 MG TABLET. PO SCH (20:58)
[2019-09-30] MEDS: TAMSULOSIN 0.4 MG CAP.ER.24H. PO SCH (20:59)
[2019-09-30] MEDS: CALCIUM CARB/VIT D3 500/200 TABLET PO SCH (20:59)
[2019-10-01] MEDS: LEVOTHYROXINE 125 MCG TABLET PO SCH (06:00)
[2019-10-01] MEDS: busPIRone 15 MG TABLET. PO SCH ×2 (07:31→20:14)
[2019-10-01] MEDS: SENNOSIDES/DOCUSATE 8.6/50MG TABLET. PO SCH (07:31)
[2019-10-01] MEDS: CETIRIZINE HCL 10 MG TABLET PO SCH (07:31)
[2019-10-01] MEDS: ASPIRIN ENTERIC COATED 325 MG TABLET.DR. PO SCH (07:31)
[2019-10-01] MEDS: PANTOPRAZOLE 40 MG TABLET. PO SCH (07:31)
[2019-10-01] MEDS: MULTIVITAMIN with MINERAL TABLET. PO SCH (07:31)
[2019-10-01] MEDS: HYDROcodone/APAP 10/325 1 TAB TABLET PO PRN ×2 (07:31→16:45)
[2019-10-01] MEDS: buPROPion XL 150 MG TAB.ER.24H PO SCH (07:31)
[2019-10-01] MEDS: ENOXAPARIN 40 MG/0.4 ML SYRINGE. SQ SCH ×2 (07:31→20:14)
[2019-10-01] MEDS: QUEtiapine 25 MG TABLET. PO SCH (07:32)
[2019-10-01] MEDS: DICLOFENAC SODIUM 1% TOPICAL GEL 100GM TUBE. TP SCH ×2 (07:33→20:14)
[2019-10-01] MEDS: LACTOBACILLUS RHAMNOSUS GG 1 CAPSULE. PO SCH ×2 (07:35→20:14)
[2019-10-01 08:00] VITALS: BP 95/73
[2019-10-01] MEDS: METOPROLOL TART IMMED RELEASE 50 MG TABLET PO SCH ×2 (08:24→20:14)
--- NOTE | 2019-10-01 11:34 | PN ---
DATE: 10/01/2019 ATTENDING PHYSICIAN: Dr. Domingo. SUBJECTIVE: No new complaints. The patient is comfortable. She is at her usual chair, watching television with the volume turned loud. OBJECTIVE FINDINGS: VITAL SIGNS: Her blood pressure today is 106/62 mmHg, pulse 80 and regular, temperature 97.0 degrees Fahrenheit, and her oxygen saturations are 97% on room air. HEENT: Head is without trauma. Pupils are reactive. Sclerae nonicteric. Oropharynx is clear. NECK: Supple, no bruits identified. LUNGS: Clear to auscultation. CARDIOVASCULAR: Showed regular heart tones. No gallops. Peripheral pulses are palpable and full. ABDOMEN: Soft, scaphoid, nontender, no organomegaly. Bowel sounds are hypoactive. EXTREMITIES: Showed no cyanosis or edema. The wound in the ankle is dressed and clean. SKIN: Warm and dry. ASSESSMENT: 1. An 84-year-old female from the [facility] with COVID-19 positive swabs. 2. She remains totally asymptomatic. 3. Essential hypertension. 4. Hypothyroidism, on replacement. 5. Gastroesophageal reflux disease. 6. Ulcer of the left heel, managed. PLAN: She already has a negative swab from September 27. We will need two consecutive negative swabs for placement. Diet as tolerated. We are working on correction placement for next week. TONY DOMINGO MD DR: ROOPA/silvestre JOB#: [id number] / [id number]
[2019-10-01] MEDS ORDERED: MAGNESIUM HYDROXIDE 2,400 MG/30 ML ORAL.SUSP. PO ONE (19:00)
[2019-10-01] MEDS: CALCIUM CARB/VIT D3 500/200 TABLET PO SCH (20:14)
[2019-10-01] MEDS: ZOLPIDEM 5 MG TABLET. PO PRN (20:14)
[2019-10-01] MEDS: TAMSULOSIN 0.4 MG CAP.ER.24H. PO SCH (20:14)
[2019-10-01] MEDS: MONTELUKAST 10 MG TABLET. PO SCH (20:14)
[2019-10-01 20:20] VITALS: BP 114/68
[2019-10-02] MEDS: LEVOTHYROXINE 125 MCG TABLET PO SCH (06:12)
[2019-10-02 07:45] VITALS: BP 126/69
[2019-10-02] MEDS: SENNOSIDES/DOCUSATE 8.6/50MG TABLET. PO SCH (07:45)
[2019-10-02] MEDS: QUEtiapine 25 MG TABLET. PO SCH (07:45)
[2019-10-02] MEDS: ASPIRIN ENTERIC COATED 325 MG TABLET.DR. PO SCH (07:46)
[2019-10-02] MEDS: PANTOPRAZOLE 40 MG TABLET. PO SCH (07:46)
[2019-10-02] MEDS: ENOXAPARIN 40 MG/0.4 ML SYRINGE. SQ SCH ×2 (07:46→20:01)
[2019-10-02] MEDS: LACTOBACILLUS RHAMNOSUS GG 1 CAPSULE. PO SCH ×2 (07:46→20:00)
[2019-10-02] MEDS: busPIRone 15 MG TABLET. PO SCH ×2 (07:46→20:01)
[2019-10-02] MEDS: buPROPion XL 150 MG TAB.ER.24H PO SCH (07:46)
[2019-10-02] MEDS: METOPROLOL TART IMMED RELEASE 50 MG TABLET PO SCH ×2 (07:46→20:02)
[2019-10-02] MEDS: MULTIVITAMIN with MINERAL TABLET. PO SCH (07:46)
[2019-10-02] MEDS: CETIRIZINE HCL 10 MG TABLET PO SCH (07:46)
[2019-10-02] MEDS: HYDROcodone/APAP 10/325 1 TAB TABLET PO PRN (07:47)
[2019-10-02] MEDS: DICLOFENAC SODIUM 1% TOPICAL GEL 100GM TUBE. TP SCH ×2 (07:47→20:01)
[2019-10-02] MEDS ORDERED: FUROSEMIDE 80 MG TABLET PO SCH (10:15)
--- NOTE | 2019-10-02 11:51 | PN ---
DATE: 10/02/2019 ATTENDING PHYSICIAN: Dr. Domingo. SUBJECTIVE: The patient has no complaints. Her left ankle was a bit swollen. She is asymptomatic. She is comfortable watching her television turned on the high volume. OBJECTIVE FINDINGS: VITAL SIGNS: Blood pressure today is 114/68 mmHg, pulse 86 and regular, temperature 96.8 degrees Fahrenheit, oxygen saturation 97% on room air. HEENT: Head is without trauma. Pupils are reactive. Sclerae nonicteric. Oropharynx clear. NECK: Supple, no bruits. LUNGS: Good breath sounds. CARDIOVASCULAR: Showed regular heart tones. No gallops. ABDOMEN: Soft, scaphoid, nontender, no organomegaly, normal bowel sounds. EXTREMITIES: Showed trace edema of the left ankle. The wound is clean. There is no drainage. SKIN: Warm and dry. ASSESSMENT: 1. An 84-year-old female from the [facility] with COVID-19 positive swabs. 2. She remains totally asymptomatic. 3. Essential hypertension. 4. She now has 2 consecutive negative swabs for discharge. 5. Hypothyroidism. 6. Secondary pedal edema. 7. Chronic ulcer, left heel, managed. PLAN: 1. We are waiting for placement now that she has 2 consecutive negative swabs. 2. Intermittent Lasix 80 mg p.o. ordered today for pedal edema. We are working on prison placement this week. TONY DOMINGO MD DR: ROOPA/silvestre JOB#: [id number] / [id number]
[2019-10-02 19:27] VITALS: BP 82/49
[2019-10-02] MEDS: CALCIUM CARB/VIT D3 500/200 TABLET PO SCH (20:01)
[2019-10-02] MEDS: ZOLPIDEM 5 MG TABLET. PO PRN (20:01)
[2019-10-02] MEDS: TAMSULOSIN 0.4 MG CAP.ER.24H. PO SCH (20:01)
[2019-10-02] MEDS: MONTELUKAST 10 MG TABLET. PO SCH (20:01)
[2019-10-02 20:47] VITALS: BP 83/47
[2019-10-02 23:43] VITALS: BP 95/60
[2019-10-03] MEDS: LEVOTHYROXINE 125 MCG TABLET PO SCH (05:51)
[2019-10-03 07:23] VITALS: BP 116/70
[2019-10-03] MEDS: CETIRIZINE HCL 10 MG TABLET PO SCH (07:44)
[2019-10-03] MEDS: LACTOBACILLUS RHAMNOSUS GG 1 CAPSULE. PO SCH (07:44)
[2019-10-03] MEDS: PANTOPRAZOLE 40 MG TABLET. PO SCH (07:44)
[2019-10-03] MEDS: ASPIRIN ENTERIC COATED 325 MG TABLET.DR. PO SCH (07:44)
[2019-10-03] MEDS: MULTIVITAMIN with MINERAL TABLET. PO SCH (07:45)
[2019-10-03] MEDS: QUEtiapine 25 MG TABLET. PO SCH (07:45)
[2019-10-03] MEDS: busPIRone 15 MG TABLET. PO SCH (07:45)
[2019-10-03] MEDS: SENNOSIDES/DOCUSATE 8.6/50MG TABLET. PO SCH (07:45)
[2019-10-03] MEDS: buPROPion XL 150 MG TAB.ER.24H PO SCH (07:45)
[2019-10-03] MEDS: DICLOFENAC SODIUM 1% TOPICAL GEL 100GM TUBE. TP SCH (07:46)
[2019-10-03] MEDS: ENOXAPARIN 40 MG/0.4 ML SYRINGE. SQ SCH (07:46)
[2019-10-03] MEDS: METOPROLOL TART IMMED RELEASE 50 MG TABLET PO SCH (07:49)
--- NOTE | 2019-10-03 11:05 | DS ---
DATE OF DISCHARGE: 10/03/2019 ATTENDING PHYSICIAN: Dr. Morales. FINAL DISCHARGE DIAGNOSES: 1. COVID positive swab on the [facility]. She was asymptomatic. 2. Degenerative arthritis. 3. Profound dementia with impulsive behavior issues. 4. Osteoarthritis. 5. Hypertension. 6. Hypothyroidism. 7. Gastroesophageal reflux disease. 8. Previous hip surgery. 9. Stasis pressure ulcer, left heel. HISTORY AND PHYSICAL: This had been 83-year-old female transferred from the [facility] after testing positive for COVID-19 coronavirus. One of the residents up there had tested positive, she is down here for quarantine, she has no symptoms. There is no chest pain, fevers, cough, congestion. She had multiple other medical issues as described. PHYSICAL EXAMINATION: Please see the dictated note. PERTINENT LABORATORY AND X-RAY STUDIES: On admission, she had a hemoglobin of 9.3 grams with a white count of 6700. Chemistry panel followup showed a stable creatinine of 1.1 mg/dL, potassium replaced up to 4.1 mEq, sodium 135 mEq. Two consecutive negative swabs for coronavirus was done on 09/28/2019 and 09/30/2019 respectively. COURSE IN THE HOSPITAL: The patient was admitted to the [facility] in quarantine side. She was fairly cooperative. She required quite a bit of nursing care, home meds were continued. She had her 84th birthday while in quarantine. On the hospital day, she was quite stable. She has now 2 consecutive negative COVID-19 coronavirus swabs. Arrangements were made for the patient to go to [facility]. Her discharge meds will include the following: She will continue her Tylenol, aspirin, BuSpar 15 mg b.i.d., calcium, Zyrtec, Voltaren gel, Cymbalta 30 mg daily, hydrocodone p.r.n. pain, lactobacillus, Synthroid 88 mcg daily, Reglan 5 mg t.i.d., metoprolol 50 mg daily, Singulair, multivitamins, Protonix 40 mg daily, senna, Flomax 0.4 mg daily and Ambien 5 mg at bedtime. She remains a full code per advance directive. She was discharged then from our hospital in stable condition with explicit instructions and followup care. TOTAL DISCHARGE TIME SPENT: 41 minutes. TONY DOMINGO MD DR: ROOPA/silvestre JOB#: [id number] / [id number]
== END 2019-10-03 13:16 | DRG 177 ==
LOC: 1 SOUTH 15:27
PROVIDERS: ADMIT Internal Medicine; ATTEND Internal Medicine
PROC: 0HBMXZZ Excision of Right Foot Skin, External Approach (ICD-10-PCS; principal; 2019-09-13)
DX: U07.1 COVID-19 (principal); E43 Unspecified severe protein-calorie malnutrition; L97.109 Non-pressure chronic ulcer of unspecified thigh with unspecified severity; E87.1 Hypo-osmolality and hyponatremia; E03.9 Hypothyroidism, unspecified; E78.5 Hyperlipidemia, unspecified; F01.50 Vascular dementia, unspecified severity, without behavioral disturbance, psychotic disturbance, mood disturbance, and anxiety; F02.80 Dementia in other diseases classified elsewhere, unspecified severity, without behavioral disturbance, psychotic disturbance, mood disturbance, and anxiety; F17.200 Nicotine dependence, unspecified, uncomplicated; F39 Unspecified mood [affective] disorder; F41.9 Anxiety disorder, unspecified; F63.9 Impulse disorder, unspecified; G30.9 Alzheimer's disease, unspecified; G47.00 Insomnia, unspecified; I10 Essential (primary) hypertension; I99.8 Other disorder of circulatory system; K21.9 Gastro-esophageal reflux disease without esophagitis; L08.9 Local infection of the skin and subcutaneous tissue, unspecified; L89.610 Pressure ulcer of right heel, unstageable; L89.629 Pressure ulcer of left heel, unspecified stage; M15.9 Polyosteoarthritis, unspecified; Z79.890 Hormone replacement therapy; Z79.899 Other long term (current) drug therapy; Z91.19 Patient's noncompliance with other medical treatment and regimen; Z68.24 Body mass index [BMI] 24.0-24.9, adult; Z74.01 Bed confinement status; Z99.3 Dependence on wheelchair
CPT/HCPCS: 36415; 71045; 80048; 80053; 82533; 84443; 85027; J1650; J8597; 97116; 97530; U0003-CS